=== PATIENT | male | born 1930 | race Caucasian/White ===

== ENCOUNTER 2018-01-03 08:45 | Day surgery (SDC) | payer MEDICARE, OTHER ==
[~2018-01-03] VITALS: Ht 172.7 cm; Wt 93.0 kg
[~2018-01-03 08:45] MED LIST: CEPHALEXIN500 MG PO; FUROSEMIDE40 MG PO; LEVAQUIN500 MG PO; LISINOPRIL20 MG PO; POTASSIUM CHLO10 MEQ PO; PREDNISONE10 MG PO
[2018-01-03] MEDS ORDERED: ASPIR 8181 MG PO (09:27)
[2018-01-03] MEDS ORDERED: MAPAP325 MG PO (13:31)
[2018-01-03] MEDS ORDERED: IBUPROFEN600 MG PO (13:31)
[2018-01-03] MEDS ORDERED: OXYCODON-ACETA1 EAC2 PO (13:31)
--- NOTE | 2018-01-03 13:31 | NUR ---
01/03/18 Joshua1 Micki Plata 1315 PT ARRIVED ASLEEP, RESP EVEN AND UNLABORED. 1319 O2 DECREASED TO 6L VIA MASK 1321 O2 REMOVED. PT DROWSY. REORIENTED TO PACU.
--- NOTE | 2018-01-03 15:49 | NUR ---
IN TO CHECK ON PT, PT AWAKE. DENIES PAIN AND NAUSEA. OFFERED PAIN MEDICATION BEFORE LEAVING, PT DECLINED. PT ASSISTED UP TO BATHROOM, TOLERATED WELL. VO1OYTE ON FEET. BACK TO ROOM, ADVISED PT OKAY TO D/C. PT STATES HE IS READY TO GO. IV DC'D. PT DRESSING, TOLERATING WELL. PT'S SON CALLED FOR RIDE. PT'S CALLED FOR UPDATE.
--- NOTE | 2018-01-12 14:11 | OR ---
[facility] [address] [place], [place] [address] Signed DATE OF OPERATION: 01/03/2018 SURGEON: Alexis Centeno MD PREOPERATIVE DIAGNOSIS: Right inguinal hernia. POSTOPERATIVE DIAGNOSIS: Large right direct and indirect inguinal hernia (complex). PROCEDURES: 1. Right inguinal hernia repair, prolonged complicated difficult. 2. Implantation of Prolene mesh underlay technique and excision and ligation of indirect hernia sac. ANESTHESIA: General LMA, Alexis Benites CRNA and local 30 mL of 0.25% Marcaine with epinephrine. INDICATIONS: This 87-year-old white man is well known to me from the past 15 years ago, having undergone a left inguinal hernia repair. The hernia repair is doing well. The patient is a patient of Dr. Laird. He has been found to have a right inguinal hernia. Examination shows a reducible right inguinal hernia. He is admitted at this time to undergo right inguinal hernia repair. Understand the risks of bleeding, infection, recurrent hernia, testicular injury or chronic pain, and understanding these risks wishes to proceed. FINDINGS: There was a complex hernia more so than I expected. There was a large indirect sac without sign of incarceration. Additionally, though there was marked defect in the floor itself. High ligation and excision of the sac were accomplished as well as implantation of Prolene mesh in the properitoneal space with underlay technique. By conclusion, the cord structures were preserved and good repair was afforded. The operation was prolonged, complicated, and difficult taken 3 times longer than usual. DESCRIPTION OF PROCEDURE: The patient was brought to the operating room and given a general LMA-type anesthetic. Preoperative antibiotic Ancef was given. Sequential compression device stockings used and heparin subcutaneously administered. The lower abdomen was clipped and prepared with a chlorhexidine solution and draped sterilely. A curvilinear incision was made Electronically Signed By: ALEXIS CENTENO MD 01/12/18 1411 PATIENT NAME: OLIVIA MANTILLA OPERATIVE REPORT DATE OF : 34 REPORT #: [id number] PHYSICIAN: ALEXIS CENTENO MD PCP: Salome LAIRD MD REPORT IS CONFIDENTIAL AND NOT TO BE RELEASED WITHOUT AUTHORIZATION [facility] [address] [place], [place] [address] Signed cephalad to the right pubic tubercle. Dissection carried through the subcutaneous tissue with blunt and electrocautery dissection. The external oblique was markedly attenuated due to the bulging of the hernia itself. The remnants of the external oblique laterally were incised revealing the underlying bulky-type hernia. With blunt and electrocautery dissection, the cord structures and hernia sac were dissected free. Ultimately, the cord was encircled with a Tivoli drain and examination of the floor showed to be intact medially, but laterally quite markedly attenuated and a direct component hernia was noted as well. The hernia sac was dissected free from the cord structures. It was quite large. It was ultimately freed to the neck, incised and opened and internal inspection undertaken. There was no sign of hollow, viscus or sliding component. The neck of the hernia sac was ligated with 2-0 silk suture doubly applied and the redundant hernia sac amputated and passed for pathology. An Allis clamp was applied to the tendon of the transversus abdominis and there was still bulky fat in the medial superior aspect of the cord. With further dissection, this was found to be a direct hernia surprisingly anterior and nearly lateral to the cord itself. This was distinct from the hernia sac itself. Medially, there was attenuated tissue as well consistent with direct hernia. The attenuated fibers of the fascia transversalis were incised with electrocautery and with meticulous care, blunt dissection undertaken in the properitoneal space. Ultimately, the cord structures could be from the blown out area superiorly and medially and the shelving edge of Poupart's ligament well defined and the area for implantation of mesh well defined. A segment of Prolene mesh was cut to an elliptical configuration and secured in an underlay technique with interrupted 2-0 Prolene suture. Laterally, this was to the shelving edge of Poupart's ligament extended superiorly around the origin of the cord. The defect was cut into the mesh to accommodate the cord structures and the medial aspect of the mesh was secured beneath the fascia with interrupted 2-0 Prolene as well. The tails of the graft were taken around the cord laterally. The mesh was incised further to accommodate the cord, so as to avoid too extensive tight aperture for the cord structures. Once secured laterally and the special care to avoid incorporation of the ilioinguinal nerve branch, the defect of the mesh was secured with additional Prolene to snug up the mesh in relationship to the cord. The cord structures were not encumbered or blood flow occluded. A 30 mL of 0.25% Marcaine with epinephrine was injected locally. The intact remnants of the external oblique were reapproximated over the cord structures with interrupted 2-0 Vicryl. Most of the external oblique had been so attenuated could not be reapproximated over the cord. The Robby's layer was reapproximated with interrupted 2-0 Vicryl and skin was closed with running subcuticular 3-0 Vicryl. Steri-Strips were applied as was a Mepilex silver sponge dressing and an OpSite. The patient was ultimately extubated and transferred to recovery room in good condition having suffered no complications. Sponge, needle, and instrument counts reported as correct x3. Electronically Signed By: ALEXIS CENTENO MD 01/12/18 1411 PATIENT NAME: OLIVIA MANTILLA OPERATIVE REPORT DATE OF : 32 REPORT #: [id number] PHYSICIAN: ALEXIS CENTENO MD PCP: Salome LAIRD MD REPORT IS CONFIDENTIAL AND NOT TO BE RELEASED WITHOUT AUTHORIZATION [address] [address] Signed MD SAVANAH Victoria/MODL /[id number] cc: Salome Laird MD Copies: Salome LAIRD MD ~ Electronically Signed By: ALEXIS CENTENO MD 01/12/18 1411 PATIENT NAME: OLIVIA MANTILLA OPERATIVE REPORT DATE OF : 32 REPORT #: [id number] PHYSICIAN: ALEXIS CENTENO MD PCP: Salome LAIRD MD REPORT IS CONFIDENTIAL AND NOT TO BE RELEASED WITHOUT AUTHORIZATION
== END 2018-01-03 15:55 | disposition home or self-care (01) ==
LOC: DS 08:45
PROVIDERS: Surgery
PROC: 0YU50JZ Supplement Right Inguinal Region with Synthetic Substitute, Open Approach (ICD-10-PCS; principal; 2018-01-03 10:15)
DX: K40.90 Unilateral inguinal hernia, without obstruction or gangrene, not specified as recurrent (principal); I10 Essential (primary) hypertension; L82.1 Other seborrheic keratosis; Z98.52 Vasectomy status; Z90.79 Acquired absence of other genital organ(s); Z79.82 Long term (current) use of aspirin; Z79.899 Other long term (current) drug therapy; Z85.46 Personal history of malignant neoplasm of prostate
CPT/HCPCS: 00830; 88300; C1781; J0690; J1100; J1644; J1885; J2250; J2405; J2704; J2765; J3010; J7120

== ENCOUNTER 2018-12-04 08:40 | Day surgery (SDC) | payer MEDICARE, OTHER ==
[~2018-12-04] VITALS: Ht 172.7 cm; Wt 86.2 kg
[~2018-12-04 08:40] MED LIST changes: +ASPIR 8181 MG PO; +IBUPROFEN600 MG PO; +MAPAP325 MG PO; +OXYCODON-ACETA1 EAC2 PO
[2018-12-04] MEDS ORDERED: LEXAPRO20 MG PO (09:00)
--- NOTE | 2018-12-04 09:14 | NUR ---
STATES HE USES A CANE SOMETIMES . DID NOT COME IN WITH CANE.
--- NOTE | 2018-12-04 11:12 | NUR ---
12/04/18 1112 Sheets,Micki 1100 PT ARRIVED TO PACU DROWSY AND TALKING TO RN, PT DENIES PAIN AND NAUSEA, PT EDUCATION GIVEN ON SPINAL AND MITOMYCIN IN BLADDER. PT REPORTS NUMBNESS/TINGLING IN FEET, PT ABLE TO MOVE FEET SMALL AMOUNT. SPINAL LEVEL L-5.
--- NOTE | 2018-12-04 11:33 | NUR ---
URINARY CATH CLAMPED.
[2018-12-04] MEDS ORDERED: AUGMENTIN 875-1 EACH PO (11:53)
[2018-12-04] MEDS ORDERED: NORCO 5-325 TA1 EACH PO (11:53)
--- NOTE | 2018-12-04 12:02 | NUR ---
1137 TURNED, HELPED WITH LEGS NOT MOVING THEM MUCH.
--- NOTE | 2018-12-04 12:03 | NUR ---
1157 TURNED. PT ABLE TO MOVE LEGS SAYS HE CAN FEEL FEET NOW. ON STOMACH AND IS COMFORTABLE.
--- NOTE | 2018-12-04 12:28 | NUR ---
1217 TURNED AND BLADDER EMPTIED 200MLS REDDISH FLUID PLACED IN CHEMO CONTAINER. TUBING AND BAG CONNECTED. INSTRUCTED PT HE WILL HAVE X3DAYS. CARE INSTRUCTIONS GIVEN.
--- NOTE | 2018-12-04 13:52 | NUR ---
1315 GETTING DRESSED. SON HERE TO TAKE HOME. STOOD AT BEDSIDE SPINAL RESOLVED. REVIEWED CATHETER EMPTING AND CARE WITH PT AND SON AGAIN. NO QUESTIONS.
--- NOTE | 2018-12-06 13:31 | OR ---
[facility] [address] [place], [place] [address] Signed DATE OF OPERATION: 12/04/2018 SURGEON: Irvin Talamantes MD PREOPERATIVE DIAGNOSES: 1. Gross hematuria. 2. Large bladder mass seen on imaging studies. POSTOPERATIVE DIAGNOSES: 1. Gross hematuria. 2. Large bladder mass seen on imaging studies. NAMES OF PROCEDURES: 1. Diagnostic cystoscopy. 2. Transurethral resection of bladder tumor-large. 3. Intravesical instillation of mitomycin chemotherapy. 4. Urethral dilation using Alexandru sounds. ANESTHESIA: Spinal anesthesia with sedation. ESTIMATED BLOOD LOSS: 15 mL. COMPLICATIONS: None. SPECIMENS: 1. Fragments of bladder mass sent to Pathology for evaluation. 2. Fragments of the base of bladder mass, also sent to Pathology for evaluation. DRAINS: A 22-Palauan two-way Parra catheter, capped and taped to the patient's abdomen. INDICATIONS FOR PROCEDURE: Mr. Mantilla is a very pleasant 88-year-old gentleman with no history of tobacco use or obvious environmental exposure, presented to my clinic in late 2017 with complaints of multiple bouts of painless gross hematuria. He underwent a gross hematuria evaluation, which included urinary cytology. The urinary cytology was positive for high-grade urothelial cells. He then underwent a CAT scan, which revealed the presence of a very Electronically Signed By: IRVIN TALAMANTES MD 12/06/18 1331 PATIENT NAME: OLIVIA MANTILLA OPERATIVE REPORT DATE OF : 32 REPORT #: [id number] PHYSICIAN: IRVIN TALAMANTES MD PCP: JAMIR VALDEZ MD REPORT IS CONFIDENTIAL AND NOT TO BE RELEASED WITHOUT AUTHORIZATION [facility] [address] [place], [place] [address] Signed large mass within the patient's bladder. Diagnostic cystoscopy was performed, which confirmed the presence of a large papillary mass protruding from the posterior/left lateral wall of the bladder. He presents today to undergo definitive management of his bladder mass in the form of a resection, followed by intravesical instillation of mitomycin. OPERATIVE FINDINGS: 1. On cystoscopy, there was an approximately 4-5 cm papillary bladder mass that appears to have some areas of necrosis associated with it. Overall, this appears to be a tumor that has been present within the bladder for a while, and this seems to visibly penetrate deeply into the bladder wall. Again, this large mass is located in the posterior/left lateral wall of the bladder and does not involve the left ureteral orifice. 2. This large bladder mass was resected using a bipolar electrode. Most of the visible bladder was sent in the 1st specimen labeled fragments of bladder mass. I then obtained fragments from within the base of the bladder mass and at the level of the bladder wall, which was sent as base of bladder tumor. There was minimal blood loss during the resection and bipolar cautery was used intermittently for hemostasis without difficulty. At the end of the procedure, 2nd specimen cup was filled with fragments of urothelium mixed with the detrusor muscle and the base of the tumor. The patient's bladder was again thoroughly irrigated to be sure any remaining fragments were successfully extracted from the bladder. 3. A 22-Palauan two-way Parra catheter was inserted into the patient's bladder and was used to drain the remaining fluid within the bladder. 40 mg of mitomycin in 20 mL of sterile water was instilled into the patient's bladder using a syringe. The bladder was then capped and then secured to the patient's abdomen. DESCRIPTION OF PROCEDURE: After informed consent was obtained, the patient was taken back to the operating room. He was transferred from the [facility] to the operating room table, where spinal anesthesia with sedation was induced. He was then placed in the dorsal lithotomy position and his genitalia were prepped and draped in standard sterile fashion. The patient's urethra was dilated using [place] sounds from 20-Palauan to 28-Palauan without difficulty. The 26-Palauan sheath was then inserted into the patient's bladder using a visual obturator. Once the sheath was in place, a diagnostic cystoscopy was then performed. The visualized obturator was then removed and a resectoscope was inserted into the patient's bladder. I then performed a resection of the large bladder mass as noted above. The mass was again noted to be around 4-5 cm in size. The top portion of the mass was fully resected and the fragments were irrigated out of the bladder and placed in a specimen cup. The base of the mass along with urothelium was then resected and placed in a 2nd specimen cup. All the while, adequate hemostasis was achieved and maintained with bipolar electrocautery. I then changed out the loop for the bipolar button and then Electronically Signed By: IRVIN TALAMANTES MD 12/06/18 133 PATIENT NAME: OLIVIA MANTILLA OPERATIVE REPORT DATE OF : 32 REPORT #: [id number] PHYSICIAN: IRVIN TALAMANTES MD PCP: JAMIR VALDEZ MD REPORT IS CONFIDENTIAL AND NOT TO BE RELEASED WITHOUT AUTHORIZATION [address] [address] Signed continued cauterization of the tumor bed along with the edges of the tumor bed and ultimately achieved more than adequate hemostasis. The patient's bladder was then again irrigated using a Сергей syringe to be sure there were no remaining fragments within the bladder. The resectoscope was then removed. A 22-Palauan two-way Parra catheter was inserted into the patient's bladder and the patient's bladder was then drained fully of irrigant. I then instilled 40 mg of mitomycin mixed in 20 mL into the patient's bladder via the existing catheter. The catheter was then capped and secured to the patient's abdomen. The procedure was then terminated. The patient tolerated the procedure well without any complication. He will now be transferred to the postanesthesia care unit in stable condition. DISPOSITION: The patient will be sent to the postanesthesia care unit to continue his mitomycin therapy for the next 80 minutes. The mitomycin therapy will then be drained from his bladder. Due to the shear size of the bladder tumor, I have asked that the patient be sent home with a Parra catheter to gravity drainage. He was sent home with [place] 5/325, dispensed #10 as needed for pain along with oral antibiotics for prophylaxis. He will be scheduled to return in the next few days to undergo voiding trial in the clinic with my EXTRUSION BENDER. I told the patient that I would contact him with the pathology results once they are available. This will then determine our next best course of action. MD JULIO CÉSAR Bourne/SRINATH /[id number] Copies: ~ Electronically Signed By: IRVIN TALAMANTES MD 12/06/18 1331 PATIENT NAME: OLIVIA MANTILLA OPERATIVE REPORT DATE OF : 32 REPORT #: [id number] PHYSICIAN: IRVIN TALAMANTES MD PCP: JAMIR VALDEZ MD REPORT IS CONFIDENTIAL AND NOT TO BE RELEASED WITHOUT AUTHORIZATION
== END 2018-12-04 13:20 | disposition home or self-care (01) ==
LOC: OPS 08:40 → DS 08:40 → OPS 09:25
PROVIDERS: Urology
PROC: 0TBB8ZZ Excision of Bladder, Via Natural or Artificial Opening Endoscopic (ICD-10-PCS; principal; 2018-12-04 09:25)
PROC: 3E0M705 Introduction of Other Antineoplastic into Peritoneal Cavity, Via Natural or Artificial Opening (ICD-10-PCS; 2018-12-04 09:25)
DX: C67.9 Malignant neoplasm of bladder, unspecified (principal); M19.012 Primary osteoarthritis, left shoulder; M46.96 Unspecified inflammatory spondylopathy, lumbar region; Z79.82 Long term (current) use of aspirin; Z79.899 Other long term (current) drug therapy
CPT/HCPCS: 00912; 88305; 88307; J0696; J2250; J2704; J3010; J7120; J9280

== ENCOUNTER 2019-02-12 05:30 | Day surgery (SDC) | payer MEDICARE, OTHER ==
[~2019-02-12] VITALS: Ht 172.7 cm; Wt 86.2 kg
--- NOTE | ~2019-02-12 | OR ---
[facility] [address] [place] [address] Draft DATE OF OPERATION: 02/12/2019 SURGEON: Irvin Talamantes MD PREOPERATIVE DIAGNOSIS: Superficial low-grade bladder cancer, status post recent TURBT, large. POSTOPERATIVE DIAGNOSIS: Superficial low-grade bladder cancer, status post recent TURBT, large. NAMES OF PROCEDURES: 1. Diagnostic cystoscopy. 2. Transurethral resection of bladder tumor-small. 3. Intravesical instillation of mitomycin chemotherapy. ANESTHESIA: General. ESTIMATED BLOOD LOSS: Minimal. COMPLICATIONS: None. SPECIMENS: Tissue obtained from the base of the bladder tumor was placed in a specimen cup and sent to pathology for evaluation. DRAINS: A 20-Cayman Islander two-way Parra catheter, capped and taped to the patient's abdomen. COMPLICATIONS: None. INDICATIONS FOR PROCEDURE: Mr. Mantilla is a very pleasant 89-year-old gentleman, who underwent initial TURBT large approximately 2 months ago after being evaluated for intermittent bouts of gross hematuria. At that time he was found to have a rather large lesion on the posterior lateral wall of the bladder. He underwent uneventful TURBT along with intravesical instillation of mitomycin chemotherapy. 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 He presents today to undergo his restaging TURBT per protocol. Overall, he is doing quite well and has no complaints since his initial surgery. OPERATIVE FINDINGS: On cystoscopy, there is no evidence of any new bladder lesions or masses, noted since his previous surgery. There is diffuse grade 3-4 bladder wall trabeculation, along with generalized erythema of the mucosa. I can see the area of previous resection of the large bladder tumor on the posterior lateral wall of the bladder. There is a rather large amount of necrotic tissue associated with this area. Both the necrotic tissue and the base of the previous lesion were resected thoroughly and then areas were resected down to the level of perivesical fat. I was able to obtain multiple tumor bed fragments that were placed in a specimen cup and sent to pathology for evaluation. Once a 20-Cayman Islander two-way Parra catheter was placed, 40 mg in 20 mL of mitomycin was then instilled into the patient's bladder and the catheter was capped and secured to the patient's abdomen. DESCRIPTION OF PROCEDURE: After informed consent was obtained, the patient was taken back to the operating room. He was transferred from the [facility] to the operating room table, where general anesthesia was induced. He was placed in the dorsal lithotomy position and his genitalia was prepped and draped in sterile fashion. His meatus and fossa navicularis were then dilated from 18-Cayman Islander to 30-Cayman Islander without difficulty using Summers sounds. I then inserted a standard cystoscope using a 22-1/2-Cayman Islander sheath and a 70-degree lens. A thorough diagnostic cystoscopy was then performed. Please see above findings. I then removed the scope and inserted a 26-Cayman Islander sheath using the visual obturator. I removed the obturator and then inserted the resectoscope with a 24-Cayman Islander loop and began resection of the necrotic tumor bed. Fragments of necrotic tissue were removed, along with the base of the previous bladder tumor. I was able to resect obvious areas of detrusor muscle, down to the perivesical fat in some areas. Overall, the resection was performed without difficulty. I then cauterized the tumor bed using a 24-Cayman Islander loop to obtain adequate hemostasis. Once all the tumor bed had been completely resected and was cauterized properly, the patient's bladder was then flushed using a Сергей syringe and the tumor base fragments were then collected from the patient's bladder via the Сергей syringe. I reinserted the resectoscope to be sure there were no remaining bleeders in the area of the resection. Once I was satisfied that hemostasis had been achieved, the resectoscope was removed and I inserted a 20-Cayman Islander two-way Parra catheter and flushed PATIENT NAME: OLIVIA MANTILLA OPERATIVE REPORT DATE OF : 34 REPORT #: [id number] PHYSICIAN: IRVIN TALAMANTES MD PCP: JAMIR VALDEZ MD REPORT IS CONFIDENTIAL AND NOT TO BE RELEASED WITHOUT AUTHORIZATION [facility] [address] [place] [address] Draft the patient's bladder again a couple of times to be sure there were no remaining tumor specimens. Using a catheter tip syringe. I then instilled 40 mg in 20 mL of mitomycin chemotherapy into the patient's bladder using the indwelling Parra catheter. The catheter was then capped and then taped to the patient's abdomen. The procedure was then terminated. The patient tolerated the procedure well without any complication. He will now be transferred to the postanesthesia care unit in stable condition. DISPOSITION: Once the patient awakes from his general anesthesia he will be sent home later today in the care of his family. The patient's Parra catheter will be removed after he undergoes a total of 80 minutes of intravesical mitomycin chemotherapy. I have asked nursing staff to be sure the patient is able to void on his own before discharge. If he is unable to void after 68 hours he will be bladder scanned and a Parra catheter will be reinserted if his PVR is greater than 200 mL. The patient will be scheduled to return to clinic in approximately 4-5 weeks to discuss his pathology results after undergoing restaging TURBT. He will be sent home today with [place] 5/325 dispense #15 as needed for pain along with Keflex 500 mg p.o. b.i.d. for a total of 7 days. MD JULIO CÉSAR Bourne/SRINATH /[id number] Copies: ~ PATIENT NAME: OLIVIA MANTILLA OPERATIVE REPORT DATE OF : 34 REPORT #: [id number] PHYSICIAN: IRVIN TALAMANTES MD PCP: JAMIR VALDEZ MD REPORT IS CONFIDENTIAL AND NOT TO BE RELEASED WITHOUT AUTHORIZATION
[~2019-02-12 05:30] MED LIST changes: +AUGMENTIN 875-1 EACH PO; +LEXAPRO20 MG PO; +NORCO 5-325 TA1 EACH PO
--- NOTE | 2019-02-12 08:45 | NUR ---
02/12/19 0845 Veronica Shrestha 0868 PT ARRIVED IN PACU SLEEPY WITH NO C/O'S. CATHETER CLAMPED FROM OR. POSITIONED ON BACK. 0835 OXYGEN REMOVED. SATS 96% ON RA. 0840 REPOSITIONED TO R SIDE PER DR PHILLIPS.
--- NOTE | 2019-02-12 10:31 | NUR ---
LE 0910 PT ARRIVED FROM PACU, AWAKE AND TALKING WITH STAFF. PT DENIES PAIN AND NAUSEA. PT LYING ON L SIDE. WATER GIVEN. WILL ROTATE PT AT 0920. LE 0920 PT ROLLED TO STOMACH. REPOSITIONED FOR COMFORT. NO FURTHER NEEDS AT THIS TIME. LE 0940 SOOD CATH WITH MITOMYCIN REMOVED. 100 MLS OF CORTEZ TINGED URINE REMOVED. PT TOLERATED WELL. DENIES PAIN AND NAUSEA. COFFEE GIVEN TO TOLERATED WELL. SCRAMBLED EGGS ORDERED AND GIVEN TO PT. WILL CONTINUE TO MONITOR.
--- NOTE | 2019-02-12 11:36 | NUR ---
IN TO CHECK ON PT, PT DOING WELL. DENIES PAIN AND NAUSEA AT THIS TIME. DISCUSSED AMBULATING TO RESTROOM WHEN READY. VITALS STABLE. WILL CONTINUE TO MONITOR PT.
--- NOTE | 2019-02-12 12:20 | NUR ---
LE 1145 PT ASSISTED UP TO BATHROOM. AMBULATED WELL WITH ASSIST FROM CANE. PT ABLE TO VOID 150 MLS. PT STATES HE IS READY TO GO HOME. IV DC'D. PT DRESSED WITHOUT ASSIST. DISCHARGE INSTRUCTIONS AND RX GIVEN. PT DAUGHTER RADHA HERE TO TAKE PT HOME. PT WHEELED OUT TO WAITING CAR.
== END 2019-02-12 12:15 | disposition home or self-care (01) ==
LOC: DS 05:30 → OPS 05:30 → DS 06:45 → OPS 06:45
PROVIDERS: Urology
PROC: 0TBB8ZZ Excision of Bladder, Via Natural or Artificial Opening Endoscopic (ICD-10-PCS; principal; 2019-02-12 06:45)
DX: C67.8 Malignant neoplasm of overlapping sites of bladder (principal); N32.89 Other specified disorders of bladder; N30.91 Cystitis, unspecified with hematuria; I12.9 Hypertensive chronic kidney disease with stage 1 through stage 4 chronic kidney disease, or unspecified chronic kidney disease; E78.2 Mixed hyperlipidemia; N18.3 Chronic kidney disease, stage 3 (moderate); N28.9 Disorder of kidney and ureter, unspecified; Z79.899 Other long term (current) drug therapy
CPT/HCPCS: 00912; 88305; 88341; 88342; J0696; J2405; J3010; J7120

== ENCOUNTER 2020-02-10 15:13 | Emergency (ER) | payer MEDICARE, OTHER ==
[~2020-02-10] VITALS: Ht 172.7 cm; Wt 83.9 kg
--- NOTE | 2020-02-11 07:15 | EKG ---
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
--- NOTE | 2020-02-11 07:15 | EKG ---
[facility] [address] [place] [address] Signed Sinus tachycardia with 1st degree AV block Otherwise normal ECG When compared with ECG of 29-NOV-2018 15:19, Vent. rate has increased BY 64 BPM Confirmed by KIZZY SWAIN MD ([id number]) on 02/11/2020 7:14:51 AM Electronically Signed By: KIZZY SWAIN MD 02/11/20 0715 PATIENT NAME: JOSE RAFAELOLIVIA Electrocardiogram DATE OF : 34 PHYSICIAN: KIZZY SWAIN MD REPORT #: [id number] REPORT IS CONFIDENTIAL AND NOT TO BE RELEASED WITHOUT AUTHORIZATION
== END 2020-02-10 20:50 | disposition short-term general hospital (02) ==
LOC: ED 15:13
DX: I26.99 Other pulmonary embolism without acute cor pulmonale (principal); I10 Essential (primary) hypertension; Z79.899 Other long term (current) drug therapy
CPT/HCPCS: 70450; 71045; 71260; 80053; 83880; 84484; 85025; 85379; 85610; 85730; 87502; 93005; 93010; 96361; 99285-25; J1644; J7121; Q9967

== ENCOUNTER 2020-04-01 14:13 | Inpatient (IN) | payer MEDICARE, OTHER ==
[~2020-04-01] VITALS: Ht 172.7 cm; Wt 90.3 kg
--- OUTSIDE RECORDS SUMMARY | ~2020-04-01 | XMS | Encounter Summary ---
Demographics + + + | Address | [address] | | | [place] [address] | + + + | Home Phone | | + + + | Preferred Language | Unknown | + + + | Marital Status | | + + + | Hindu Affiliation | Unknown | + + + | Race | Unknown | + + + | Ethnic Group | Unknown | + + + Author + + + | Author | [facility] | | | and [place] | + + + | Organization | [facility] | | | and [place] | + + + | Address | Unknown | + + + | Phone | Unavailable | + + + Support + + +---------+ + | Name | Relationship | Address | Phone | + + +---------+ + | Breanne Walsh | ECON | Unknown | | + + +---------+ + Care Team Providers + +------+ + | Care Live In Companion Name | Role | Phone | + +------+ + | Antonio Nolasco MD | PCP | | + +------+ + Encounter Details +--------+ + + + + | Date | Type | Department | Care Team | Description | +--------+ + + + + | 02/24/ | Telephone | [facility] | Imani Nevarez, | | | 2019 | | CENTER | ANIMAL CHIROPRACTOR | | | | | ANTICOAGULATION | | | | | | [facility] [place] | | | | | | [address] | | | | | | [place], [place] | | | | | | [address] | | | | | | [phone] | | | +--------+ + + + + Social History + +-------+ +--------+------+ | Tobacco Use | Types | Packs/Day | Years | Date | | | | | Used | | + +-------+ +--------+------+ | Never Smoker | | | | | + +-------+ +--------+------+ + +---+---+---+ | Smokeless Tobacco: | | | | | Never Used | | | | + +---+---+---+ + + +---------+ + | Alcohol Use | Drinks/Week | oz/Week | Comments | + + +---------+ + | Yes | | | 1 shot a day | + + +---------+ + + + + | Sex Assigned at | Date Recorded | | | | + + + | Not on file | | + + + + + + + | Job Start Date | Occupation | Industry | + + + + | Not on file | Not on file | Not on file | + + + + + + + + | Travel History | Travel Start | Travel End | + + + + + + | No recent travel history available. | + + documented as of this encounter Plan of Treatment +--------+---------+ + + + | Date | Type | Specialty | Care Team | Description | +--------+---------+ + + + | 07/03/ | Office | Cardiology | Giselle Garcia DO | | | 2019 | Visit | | [address] | | | | | | [place] | | | | | | [address] | | | | | | | | +--------+---------+ + + + documented as of this encounter Visit Diagnoses Not on filedocumented in this encounter"
--- OUTSIDE RECORDS SUMMARY | ~2020-04-01 | XMS | Encounter Summary ---
Demographics + + + | Address | [address] | | | [place] [address] | + + + | Home Phone | | + + + | Preferred Language | Unknown | + + + | Marital Status | | + + + | Methodist Affiliation | Unknown | + + + | Race | Unknown | + + + | Ethnic Group | Unknown | + + + Author + + + | Author | [facility] | | | and [place] | + + + | Organization | [facility] | | | [...] Team Providers + +------+ + | Care Fry Cook Name | Role | Phone | + +------+ + | Antonio Nolasco MD | PCP | | + +------+ + Encounter Details +--------+ + + + + | Date | Type | Department | Care Team | Description | +--------+ + + + + | 02/24/ | Telephone | [facility] | Imani Nevarez, | | | 2019 | | CENTER | AUDIO VIDEO TECHNICIAN | | | | | ANTICOAGULATION | | | | | | [facility] [place] | | | | | | [address] | | | | | | [place], [place] | | | | | | [address] | | | | | | [phone] | | | +--------+ + + + [...] | | | | | [place] | | | | | | [address] | | | | | | | | +--------+---------+ + + + documented as of this encounter Visit Diagnoses Not on filedocumented in this encounter"
--- OUTSIDE RECORDS SUMMARY | ~2020-04-01 | XMS | Encounter Summary ---
Demographics + + + | Address | [address] | | | [place] [address] | + + + | Home Phone | | + + + | Preferred Language | Unknown | + + + | Marital Status | | + + + | Latter-Day Affiliation | Unknown | + + + | Race | Unknown | + + + | Ethnic Group | Unknown | + + + Author + + + | Author | [facility] | | | and [place] | + + + | Organization | [facility] | | | [...] Team Providers + +------+ + | Care Poultry Husbandry Teacher Name | Role | Phone | + +------+ + PCP | Unavailable | + +------+ + Encounter Details +--------+ + + + + | Date | Type | Department | Care Team | Description | +--------+ + + + + | 10/27/ | [facility] | [facility] | Kevin Campos MD | | | 2000 | Encounter | [facility] | [address] | | | | | [address] | [place] | | | | | [place] | [address] | | | | | [address] | [phone] | | | | | [phone] | | | +--------+ + + + [...] | Giselle Garcia DO | | | 2020 | Visit | | [address] | | | | | | [place] | | | | | | [address] | | | | | | | | +--------+---------+ + + + documented as of this encounter Visit Diagnoses Not on filedocumented in this encounter"
--- OUTSIDE RECORDS SUMMARY | ~2020-04-01 | XMS | Encounter Summary ---
Demographics + + + | Address | [address] | | | [place] [address] | + + + | Home Phone | | + + + | Preferred Language | Unknown | + + + | Marital Status | | + + + | Worship Affiliation | Unknown | + + + | Race | Unknown | + + + | Ethnic Group | Unknown | + + + Author + + + | Author | [facility] | | | and [place] | + + + | Organization | [facility] | | | and [place] | + [...] Team Providers + +------+ + | Care Multi Purpose Machine Operator Name | Role | Phone | + +------+ + PCP | Unavailable | + +------+ + Encounter Details +--------+ + + + + | Date | Type | Department | Care Team | Description | +--------+ + + + + | 10/27/ | [facility] | [facility] | Kevin Campos MD | | | 2000 | Encounter | MED CTR [facility] | [address] | | | | | [address] | [place] | | | | | [place] | [address] | | | | | [address] | [phone] | | | | | [phone] | | | +--------+ + + + [...] [place] | | | | | | [address] | | | | | | | | +--------+---------+ + + + documented as of this encounter Visit Diagnoses Not on filedocumented in this encounter"
--- OUTSIDE RECORDS SUMMARY | ~2020-04-01 | XMS | Encounter Summary ---
Demographics + + + | Address | [address] | | | [place] [address] | + + + | Home Phone | | + + + | Preferred Language | Unknown | + + + | Marital Status | | + + + | Anabaptism Affiliation | Unknown | + + + | Race | Unknown | + + + | Ethnic Group | Unknown | + + + Author + + + | Author | [facility] | | | and [place] | + + + | Organization | [facility] | | [...] Team Providers + +------+ + | Care Purchasing Analyst Name | Role | Phone | + +------+ + PCP | Unavailable | + +------+ + Encounter Details +--------+ + + + + | Date | Type | Department | Care Team | Description | +--------+ + + + + | 10/27/ | [facility] | [facility] | Kevin Campos MD | | | 2000 | Encounter | MED CTR [facility] INTRA [facility] | [address] | | | | | [address] | [place] | | | | | [place] | [address] | | | | | [address] | [phone] | | | | | [phone] | | | +--------+ + + + [...] [place] | | | | | | [address] | | | | | | | | +--------+---------+ + + + documented as of this encounter Visit Diagnoses Not on filedocumented in this encounter"
--- OUTSIDE RECORDS SUMMARY | ~2020-04-01 | XMS | Encounter Summary ---
Demographics + + + | Address | [address] | | | [place] [address] | + + + | Home Phone | | + + + | Preferred Language | Unknown | + + + | Marital Status | | + + + | Voodoo Affiliation | Unknown | + + + | Race | Unknown | + + + | Ethnic Group | Unknown | + + + Author + + + | Author | [facility] | | | and [place] | + + + | Organization | [facility] | | | [...] Team Providers + +------+ + | Care Leather Repairer Name | Role | Phone | + +------+ + | Antonio Nolasco MD | PCP | | + +------+ + Encounter Details +--------+--------+ + + + | Date | Type | Department | Care Team | Description | +--------+--------+ + + + | 02/09/ | Intake | [facility] | | N/A | | 2019 | | [place] [address] | | | | | | [place] | | | | | | [place], [place] | | | | | | [address] | | | | | | [phone] | | | +--------+--------+ + + + Social History + +-------+ [...] [place] | | | | | | [address] | | | | | | | | +--------+---------+ + + + documented as of this encounter Visit Diagnoses Not on filedocumented in this encounter"
--- OUTSIDE RECORDS SUMMARY | ~2020-04-01 | XMS | Encounter Summary ---
Demographics + + + | Address | [address] | | | [place] [address] | + + + | Home Phone | | + + + | Preferred Language | Unknown | + + + | Marital Status | | + + + | Caodaism Affiliation | Unknown | + + + | Race | Unknown | + + + | Ethnic Group | Unknown | + + + Author + + + | Author | [facility] | | | and [place] | + + + | Organization | [facility] | | [...] Team Providers + +------+ + | Care Mental Health Tech Name | Role | Phone | + +------+ + | Antonio Nolasco MD | PCP | | + +------+ + Encounter Details +--------+ + + + + | Date | Type | Department | Care Team | Description | +--------+ + + + + | 02/13/ | Telephone | [facility] | Jigna Metcalf RN | | | 2020 | | CENTER | | | | | | [facility] | | | | | | [facility] | | | | | | [address] | | | | | | [place] | | | | | | [address] | | | | | | [phone] | | | +--------+ + + + [...] [place] | | | | | | [address] | | | | | | | | +--------+---------+ + + + documented as of this encounter Visit Diagnoses Not on filedocumented in this encounter"
--- OUTSIDE RECORDS SUMMARY | ~2020-04-01 | XMS | Encounter Summary ---
Demographics + + + | Address | [address] | | | [place] [address] | + + + | Home Phone | | + + + | Preferred Language | Unknown | + + + | Marital Status | | + + + | Latter Day Affiliation | Unknown | + + + | Race | Unknown | + + + | Ethnic Group | Unknown | + + + Author + + + | Author | [facility] | | | and [place] | + + + | Organization | [facility] | | | [...] Team Providers + +------+ + | Care Laborer Pole Crew Name | Role | Phone | + +------+ + | Antonio Nolasco MD | PCP | | + +------+ + Reason for Referral Evaluate & Treat (Routine) +--------+ + + + + + | Status | Reason | Specialty | Diagnoses / | Referred By | Referred To | | | | | Procedures | Contact | Contact | +--------+ + + + + + | Closed | Specialty | Anticoagulati | Diagnoses | Karolina | Alicia | | | Services | on | Acute | MD Elizabeth | Anticoagulati | | | Required | | pulmonary | [address] | on Clinic | | | | | embolism, | [address] | [place] | | | | | unspecified | [place], [place] | [address] | | | | | pulmonary | [address] | [place], | | | | | embolism | Phone: | [place] [address] | | | | | type, | [phone] | Phone: | | | | | unspecified | Fax: | [phone] | | | | | whether | [phone] | Fax: | | | | | acute cor | | [phone] | | | | | pulmonale | | | | | | | present | | | | | | | ([facility]) | | | +--------+ + + + + + Reason for Visit + + + | Reason | Comments | + + + | Cough | | + + + | Weakness | | + + + Encounter Details +--------+ + + + + | Date | Type | Department | Care Team | Description | +--------+ + + + + | 02/09/ | Hospital | [facility] | Solomon Santos DO | Acute pulmonary | | 2020 - | Encounter | [facility] | [address] | embolism, | | | | [address] | [place], [place] | unspecified | | 02/11/ | | [place], [place] | [address] | pulmonary embolism | | 2019 | | [address] | [phone] | type, unspecified | | | | [phone] | | whether acute cor | | | | | Epi Martinez | pulmonale present | | | | | MD [address] | ([facility]) (Primary Dx); | | | | | [address] | Syncope, unspecified | | | | | [place] [address] | syncope type | | | | | [phone] | | | | | | | | | | | | Eder Álvarez | | | | | | Archie Miller MD [address] | | | | | | [address] | | | | | | [place] [address] | | | | | | [phone] | | | | | | | | | | | | Elizabeth Turcios MD | | | | | | [address] | | | | | | [place] [address] | | | | | | [phone] | | | | | | | | +--------+ + [...] + + + | Blood Pressure | 112/56 | 02/12/2020 11:42 AM | | | | | PDT | | + + + + + | Pulse | 76 | 02/12/2020 11:42 AM | | | [...] + + + | Oxygen Saturation | 96% | 02/12/2020 11:42 AM | | | | | PDT | | + + + + + | Inhaled Oxygen | - | - | | | Concentration | | | | + + + + + | Weight | 82.1 kg (181 lb) | 02/12/2020 4:00 AM | | | | | PDT | | + + + + + | Height | 172.7 cm (5' 8") | 02/10/2020 10:06 PM | | | | | PDT | | + + + + + | Body Mass Index | 27.52 | 02/10/2020 10:06 PM | | | | | PDT | | + + + + + documented in this encounter Discharge Summaries Elizabeth Turcios MD - 02/12/2020 12:01 PM PDTFormatting of this note might be different fro m the original. Service: Hospitalist Discharge Summary Date of Admission: 02/10/2020 Date of Discharge: 02/12/2020 Discharge Provider: Elizabeth Turcios MD Discharge Diagnoses: Principal Problem: Acute saddle pulmonary embolism with acute cor pulmonale Active Problems: Essential hypertension Acute respiratory failure with hypoxia Syncope Bladder cancer Resolved Problems: * No resolved hospital problems. * Significant Diagnostic Studies: IR guided thrombectomy of saddle PE showed the following: IMPRESSION: Successful pulmonary artery lysis catheter placement. The catheters will be connected to tPA 0.5 mg/hr per side for 6 hours. If the Fibrinogen level falls by greater than 1/2 baseline or to less than 150, decrease dose by half. If there is any sign of bleeding or fibrinogen <100 discontinue tPA. Catheters will be removed by a member of the interventional radiolgy team in the morning of 02/11/2020. HOSPITAL COURSE: This is a 89-year-old male with significant past medical history of bladder procedure status post resection with chemotherapy, hypertension was brought in from [facility] where he presented with increasing fatigue, dizziness and shortness of breath. Patie nt also had a syncopal episode at home. Initial workup showed a CT scan of the chest with e xtensive cerebral PE with right ventricular enlargement. Patient was going to be transferre d over to our ER and had a IR guided thrombectomy. Vitals stabilized. He was not requiring oxygen supplementation. Will be discharged home on anticoagulation. He will be started on subcu therapeutic Lovenox with close follow-up with [facility] anticoagulation monitoring. Vital Signs: BP 112/56 | Pulse 76 | Temp 36.3 C (97.4 F) (Axillary) | Resp 16 | Ht 1.727 m (5' 8 ") | Wt 82.1 kg (181 lb) | SpO2 96% | BMI 27.52 kg/m Patient is awake, alert, oriented to time, place and person Skin: Warm and supple Neck: No JVD Chest: Normal vesicular breath sounds, good air entry bilaterally CVS: S1S2 audible, no murmurs heard Abdomen: Soft, non tender, normal bowel sounds, no organomegaly Extremities: No pedal edema, clubbing or cyanosis Neurologic examination: No focal sensory or motor deficits Back examination: No CVA tenderness, no spinal tenderness Disposition: home Condition: Fair Discharge Procedure Orders Ambulatory Referral to [facility] Anticoagulation Monitoring Referral Priority: Routine Referral Type: Evaluate & Treat Referral Reason: Specialty Services Required Requested Specialty: Anticoagulation Number of Visits Requested: 1 Follow up: No follow-ups on file. Discharge took 35 minutes, to include final examination, discussion of admission, and prepa ration of prescriptions, instructions for on-going care, follow-up and documentation of disc harge summary. Discharge Medications New Medications Details enoxaparin 80 mg/0.8 mL injection Inject 0.8 mLs under the skin every 12 hours for 5 days. aka: LOVENOX Discontinued Medications furosemide 40 mg tablet aka: LASIX lisinopril 40 MG tablet aka: PRINIVIL,ZESTRIL POTASSIUM CHLORIDE PO documented in this en counter Discharge Instructions Instructions Azucena Ratliff RN - 02/12/2020Formatting of this note might be diff erent from the original. Pulmonary Embolism (PE) A pulmonary embolus is most often due to a blood clot that develops in a deep vein of the l eg (deep vein thrombosis). If that clot, breaks loose and travels to the lung, it is called a pulmonary embolism (PE). This can cut off theflow of blood in the lungs. A blood clot in the lungs is a medical emergency and may cause . Healthcare providers use the termvenous thromboembolism (VTE)to describe these 2 condit ions: deep vein thrombosis andpulmonary embolism.They use the term VTE because the 2 con ditions are very closely related. And, because their prevention and treatment are also close ly related. A pulmonary embolism occurs when a blood clot forms in a vein and travels to the lungs. How is pulmonary embolism diagnosed? Your healthcare provider examines you and asks about yoursymptoms and health history. You may also have one or more of the following: Blood teststo check for blood clotting or other problems Imaging teststolook for clots in the veins or lung Electrocardiography (ECG)to test how well the heart is working How is pulmonary embolism treated? Blood-thinning medicines (anticoagulants).These medicines thin the blood. They may be given as a pill,as an injection, or through a tube into a vein(intravenous orIV). Bloo d thinners help prevent more blood clots from forming. They also help toprevent an existin g clot from getting larger. Thrombolysis.Thrombolytic medicines areused to quickly dissolve a blood clot. A long , narrow tube (catheter) is used to deliver medicine directly to the clot.Thrombolytic med icines increase the risk of bleeding so they are used very carefully. Inferior vena cava (IVC) filter surgery.The vena cava is the body s largest vein. It carries blood from the body to the heart. A small filter traps blood clots in the lower bod y and prevents them from traveling to the lungs. The filter is inserted into the vein throug h a catheter. The filter may be used ifblood thinners cannot be taken or if they don't wor k. Pulmonary embolectomy.This is a procedure to remove a blood clot in the lungs. It may be done with surgery or with a catheter inserted in the body. It may be done when other angelita tments aren't safe or don't work. What are the long-term concerns? With treatment, blood clots are usually dissolved or removed. Some treatments can even help prevent future clots. Buthaving a PE can put you at risk for another life-threatening blo od clot. So, you will likely need to take anticoagulants to help keep blood clots from formi ng again. You may need to take this medicine for months or years. You may also need to make lifestyle changes. This may include getting more active and eatin g healthier.You mayneed to wear elastic (compression) stockings andand take breaks on long trips. Call 911 Call 911 or get emergency help if you have symptoms of a blood clot that has traveled to special care hospital. The symptoms include: Chest pain Trouble breathing Coughing (may cough up blood) Fainting Fast heartbeat Sweating Call 911 if you have heavy or uncontrolled bleeding. When to call your healthcare provider Call your healthcare provider if you have swelling or pain in your leg, arm, or other area. These are symptoms of a blood clot. You may have bleeding if you take medicine to help prevent blood clots. Call your healthcare provider if you have signs or symptoms of bleeding. This includes: Blood in the urine Bleeding with bowel movements Bleeding from the nose, gums, a cut, or vagina Date Last Reviewed: 12/08/201619995442-6898 [employer]. [address] [place] [address]. All righ ts reserved. This information is not intended as a substitute for professional medical care. Always follow your healthcare professional's instructions. Enoxaparin injection Brand Name: Lovenox What is this medicine? ENOXAPARIN (ee nox a PA rin) is used after knee, hip, or abdominal surgeries to prevent blo od clotting. It is also used to treat existing blood clots in the lungs or in the veins. How should I use this medicine? This medicine is for injection under the skin. It is usually given by a health-care profess ional. You or a family member may be trained on how to give the injections. If you are to gi ve yourself injections, make sure you understand how to use the syringe, measure the dose if necessary, and give the injection. To avoid bruising, do not rub the site where this medici ne has been injected. Do not take your medicine more often than directed. Do not stop taking except on the advice of your doctor or health rn primary care. Make sure you receive a puncture-resistant container to dispose of the needles and syringes once you have finished with them. Do not reuse these items. Return the container to your do ctor or health rn primary care for proper disposal. Talk to your pole river regarding the use of this medicine in children. Special care may be needed. What side effects may I notice from receiving this medicine? Side effects that you should report to your doctor or health rn primary care as soon as p ossible: allergic reactions like skin rash, itching or hives, swelling of the face, lips, or tong ue feeling faint or lightheaded, falls signs and symptoms of bleeding such as bloody or black, tarry stools; red or dark-brown urine; spitting up blood or brown material that looks like coffee grounds; red spots on the skin; unusual bruising or bleeding from the eye, gums, or nose Side effects that usually do not require medical attention (report to your doctor or health rn primary care if they continue or are bothersome): pain, redness, or irritation at site where injected What may interact with this medicine? aspirin and aspirin-like medicines certain medicines that treat or prevent blood clots dipyridamole NSAIDs, medicines for pain and inflammation, like ibuprofen or naproxen What if I miss a dose? If you miss a dose, take it as soon as you can. If it is almost time for your next dose, ta ke only that dose. Do not take double or extra doses. Where should I keep my medicine? Keep out of the reach of children. Store at room temperature between 15 and 30 degrees C (59 and 86 degrees F). Do not freeze. If your injections have been specially prepared, you may need to store them in the refriger ator. Ask your pharmacist. Throw away any unused medicine after the expiration date. What should I tell my health care provider before I take this medicine? They need to know if you have any of these conditions: bleeding disorders, hemorrhage, or hemophilia infection of the heart or heart valves kidney or liver disease previous stroke prosthetic heart valve recent surgery or delivery of a baby ulcer in the stomach or intestine, diverticulitis, or other bowel disease an unusual or allergic reaction to enoxaparin, heparin, pork or pork products, other med icines, foods, dyes, or preservatives or trying to get breast-feeding What should I watch for while using this medicine? Visit your doctor or health rn primary care for regular checks on your progress. Your con dition will be monitored carefully while you are receiving this medicine. Notify your doctor or health rn primary care and seek emergency treatment if you develop breathing problems; changes in vision; chest pain; severe, sudden headache; pain, swelling, warmth in the leg; trouble speaking; sudden numbness or weakness of the face, arm, or leg. T hese can be signs that your condition has gotten worse. If you are going to have surgery, tell your doctor or health rn primary care that you are taking this medicine. Do not stop taking this medicine without first talking to your doctor. Be sure to refill yo ur prescription before you run out of medicine. Avoid sports and activities that might cause injury while you are using this medicine. Nesha re falls or injuries can cause unseen bleeding. Be careful when using sharp tools or knives. Consider using an electric razor. Take special care brushing or flossing your teeth. Report any injuries, bruising, or red spots on the skin to your doctor or health rn primary care . NOTE:This sheet is a summary. It may not cover all possible information. If you have questi ons about this medicine, talk to your doctor, pharmacist, or health care provider. Copyright 2019 [employer] What to Know When Taking Warfarin Warfarin is a medicine that controls how your blood clots. It is used to help prevent blood clots that may cause serious health problems. These problems include heart attack (myocardi al infarction), stroke, a blockage in an artery or vein (thrombus), or a blood clot that tra vels to the lungs (pulmonary embolism). Before you start taking this medicine, tell your healthcare provider if you have any of the se conditions: Stomach ulcer now or in the past Vomited blood or had bloody stools (black or red color) Aneurysm, pericarditis, or pericardial effusion Blood disorder Recent surgery, stroke, mini-stroke, or spinal puncture Kidney or liver disease, uncontrolled high blood pressure, diabetes, vasculitis, heart f ailure, lupus or other collagen-vascular disease, or high cholesterol You are or You are younger than 18 years old Recent or planned dental procedure Although warfarin reduces the risk for blood clots, it increases your risk of bleeding. Bec ause of this, you must take the medicine exactly as you are told by your healthcare provider . You will have blood tests often to check the level of warfarin in your blood. It is importa nt to have just the right amount to balance preventing blood clots and causing excessive ble eding. If the level is too low, you are at risk for developing a blood clot. If it's too hig h, you are at risk for bleeding. Make sure you keepall scheduled appointments for blood te sting. If you don t, you will be at risk for bleeding problems. You also need to protect y ourself from injury that may cause bleeding such as a fall or hitting your head. Follow these tips Take this medicine at the same time each day. Take it with a full glass of water, with o r without food. Make sure you know what to do if you miss a dose. If you are not sure what to do, call y our healthcare provider or pharmacist. Don't take more warfarin than you were told to. Tell all of your providersincluding your dentist that you take warfarin. If you will b e taking warfarin for quite a while, carry an ID card or get a Medic-Alert bracelet. This wi ll alert medical staff in case you aren t able to do so yourself. Also carry with you the name and number of the person to contact in case of an emergency. Keep your appointments for regular blood tests to measure the effects of warfarin. Your healthcare provider may need to change your dose based on the results of your blood test. Fo llow your provider s advice exactly about how to take this medicine. Don't stop taking the medicine without talking with your provider. Monitoring your PT/INR blood levels You will need to have a blood test called a PT/INR regularly. PT stands for pro thrombin. I NR stands for international normalized ratio. The PT/INR blood test is done to make sure you are getting the right dose of this medicine. The PT/INR test tells your healthcare provider how your blood is clotting. Prothrombin time, commonly referred to as pro time or PT, measu res the time it takes for blood to clot. International normalized ratio or INR is a way to c ompare results of the PT tests done at different labs. Go for your blood (PT/INR) tests as often as directed. Note that diet and medicines can affect your PT/INR level. Your next PT/INR blood draw is due on (date) at (time ) by (name of healthcare provider or clinic). The name of the healthcare provider who is monitoring your anticoagulation therapy is __ and the phone number is . Follow up with your healthcare provider or as advised by his or her staff. It usually ta kes a few hours for your doctor to get the results of your clotting tests. Call to get your lab results and find out if your provider needs to make further changes to your warfarin dos e. If your labs (PT/INR) are drawn at a location other than your provider's office, yessica ricci to tell your provider as soon as you get your lab results. What to do at home 1. Adjust your warfarin dose as directed by your healthcare provider, (name of healthcare provider). 2. Have your blood clotting test done every days at (name of clinic) by (name of healthcare provider). 3. Prevent injuries and bleeding: ? Don't go barefoot. Always wear shoes. ? Don't trim corns or calluses yourself. ? Use an electric razor to shave instead of a manual one. ? Use a soft-bristled toothbrush and waxed dental floss. 4. Some medicines can affect your blood clotting. Always talk with your healthcare provider before stopping, starting, or changing any prescription or huum-onu-bbmaqhx (OTC) medicines . This includes herbal medicines and vitamins. Talk with your healthcare provider about the following medicines: ? Some antibiotics. This is critical because some common antibiotics can cause severe bleed ing if you take them along with warfarin. These antibiotics include ciprofloxacin and trimet hoprim-sulfamethoxazole. ? Some heart medicines ? Cimetidine ? Aspirin or other anti-inflammatory medicines, such as ibuprofen, naproxen, ketoprofen, or other arthritis medicines ? Some medicines for depression, cancer, HIV (protease inhibitors), diabetes, seizures, gou t, high cholesterol, or thyroid replacement ? Vitamins containing Vitamin K ? Herbal products such as ginkgo, Q10, garlic, or Brea's wort 5. Don't make major changes in your diet. Consuming high amounts of foods containing vitami n K can reduce the effectiveness of your warfarin. Keep your diet steady Keep your diet pretty much the same each day. That s because many foods contain vitamin K . Vitamin K helps your blood clot. So eating overly high amounts of foods that contain vitam in K can affect the way warfarin works. You don t need to stay away from foods that have v itamin K. But keep the amount of them you eat steady (about the same day to day). If you pretty nge your diet for any reason, such as for illness or to lose weight, tell your healthcare pr ovider. Foods that have vitamin K include asparagus, avocado, broccoli, cabbage, kale, spinach, and some other leafy green vegetables. Oils such as soybean, canola, and olive oils also con tain vitamin K. Other food products can affect the way warfarin works in your body: ? Food products that may affect blood clotting include cranberries and cranberry juice, fis h oil supplements, garlic, radha, licorice, and turmeric. ? Herbs used in herbal teas or supplements can also affect blood clotting. Keep the amount of herbal teas and supplements you use steady. ? Alcohol can increase the effect of warfarin in your body. Talk with your healthcare provider if you have concerns about these or other food products and their effects on warfarin. When to call your healthcare provider Warfarin increases your risk of bleeding. Call your healthcare provider right away before y ou take your next dose of warfarin if you have any of these problems: Bleeding that doesn t stop in10 minutes. This might be from a bloody nose or a cut, for example. A ommnscb-adrv-hdjydm period or bleeding between periods Coughing or throwing up blood or something that looks like coffee grounds Nausea, bloating,or diarrhea Bleeding hemorrhoids Dark red or brown urine Red or black tarry stools Red or fxrqv-xnf-ntjr mane on the skin that get larger A fever or an illness that gets worse Dizziness, headache, weakness, or fatigue Chest pain or trouble breathing A serious fall or a blow to the head Swelling or pain after an injury or at an injection site Bleeding gums after brushing your teeth What to watch for If you have any of the following allergic reactions, call your doctor right away or go to [facility]. Rash Itching Swelling Trouble swallowing or breathing [NOTE: This information topic may not include all directions, precautions, medical conditio ns, medicine/food interactions, and warnings for this medicine. Check with your doctor, nurs e, or pharmacist for any questions that you may have.] Date Last Reviewed: 04/07/201619991942-3503 [employer]. [address] [place] [address], [place] [address]. All [facility] ts reserved. This information is not intended as a substitute for professional medical care. Always follow your healthcare professional's instructions. Warfarin tablets Brand Names: Coumadin, Jantoven What is this medicine? WARFARIN (WAR far in) is an anticoagulant. It is used to treat or prevent clots in the vein s, arteries, lungs, or heart. How should I use this medicine? Take this medicine by mouth with a glass of water. Follow the directions on the prescriptio n label. You can take this medicine with or without food. Take your medicine at the same rohit e each day. Do not take it more often than directed. Do not stop taking except on your docto r's advice. Stopping this medicine may increase your risk of a blood clot. Be sure to refill your prescription before you run out of medicine. If your doctor or healthcare professional calls to change your dose, write down the dose an d any other instructions. Always read the dose and instructions back to him or her to make s ure you understand them. Tell your doctor or healthcare professional what strength of tablet s you have on hand. Ask how many tablets you should take to equal your new dose. Write the d ate on the new instructions and keep them near your medicine. If you are told to stop taking your medicine until your next blood test, call your doctor or healthcare professional if yo u do not hear anything within 24 hours of the test to find out your new dose or when to rest art your prior dose. A special MedGuide will be given to you by the pharmacist with each prescription and refill . Be sure to read this information carefully each time. Talk to your [place] regarding the use of this medicine in children. Special care may be needed. What side effects may I notice from receiving this medicine? Side effects that you should report to your doctor or health rn primary care as soon as p ossible: allergic reactions like skin rash, itching or hives, swelling of the face, lips, or tong ue breathing problems chest pain dizziness headache heavy menstrual bleeding or vaginal bleeding pain in the lower back or side painful, blue or purple toes painful skin ulcers that do not go away signs and symptoms of bleeding such as bloody or black, tarry stools; red or dark-brown urine; spitting up blood or brown material that looks like coffee grounds; red spots on the skin; unusual bruising or bleeding from the eye, gums, or nose stomach pain unusually weak or tired Side effects that usually do not require medical attention (report to your doctor or health rn primary care if they continue or are bothersome): diarrhea hair loss What may interact with this medicine? Do not take this medicine with any of the following medications: agents that prevent or dissolve blood clots aspirin or other salicylates danshen dextrothyroxine mifepristone Natasha's Wort red yeast rice This medicine may also interact with the following medications: acetaminophen agents that lower cholesterol alcohol allopurinol amiodarone antibiotics or medicines for treating bacterial, fungal or viral infections azathioprine barbiturate medicines for inducing sleep or treating seizures certain medicines for diabetes certain medicines for heart rhythm problems certain medicines for hepatitis C virus infections like daclatasvir, dasabuvir; ombitasv ir; paritaprevir; ritonavir, elbasvir; grazoprevir, ledipasvir; sofosbuvir, simeprevir, sofo sbuvir, sofosbuvir; velpatasvir, sofosbuvir; velpatasvir; voxilaprevir certain medicines for high blood pressure chloral hydrate cisapride conivaptan disulfiram female hormones, including contraceptive or control pills general anesthetics herbal or dietary products like garlic, ginkgo, ginseng, green tea, or kava kava influenza virus vaccine male hormones medicines for mental depression or psychosis medicines for some types of cancer medicines for stomach problems methylphenidate NSAIDs, medicines for pain and inflammation, like ibuprofen or naproxen propoxyphene quinidine, quinine raloxifene seizure or epilepsy medicine like carbamazepine, phenytoin, and valproic acid steroids like cortisone and prednisone tamoxifen thyroid medicine tramadol vitamin c, vitamin e, and vitamin K zafirlukast zileuton What if I miss a dose? It is important not to miss a dose. If you miss a dose, call your healthcare provider. Take the dose as soon as possible on the same day. If it is almost time for your next dose, take only that dose. Do not take double or extra doses to make up for a missed dose. Where should I keep my medicine? Keep out of the reach of children. Store at room temperature between 15 and 30 degrees C (59 and 86 degrees F). Protect from l ight. Throw away any unused medicine after the expiration date. Do not flush down the toilet . What should I tell my health care provider before I take this medicine? They need to know if you have any of these conditions: alcoholism anemia bleeding disorders cancer diabetes heart disease high blood pressure history of bleeding in the gastrointestinal tract history of stroke or other brain injury or disease kidney or liver disease protein C deficiency protein S deficiency psychosis or dementia recent injury, recent or planned surgery or procedure an unusual or allergic reaction to warfarin, other medicines, foods, dyes, or preservati ves or trying to get breast-feeding What should I watch for while using this medicine? Visit your doctor or health rn primary care for regular checks on your progress. You will need to have a blood test called a PT/INR regularly. The PT/INR blood test is done to make sure you are getting the right dose of this medicine. It is important to not miss your appoi ntment for the blood tests. When you first start taking this medicine, these tests are done often. Once the correct dose is determined and you take your medicine properly, these tests can be done less often. Notify your doctor or health rn primary care and seek emergency treatment if you develop breathing problems; changes in vision; chest pain; severe, sudden headache; pain, swelling, warmth in the leg; trouble speaking; sudden numbness or weakness of the face, arm or leg. Th sada can be signs that your condition has gotten worse. While you are taking this medicine, carry an identification card with your name, the name a nd dose of medicine(s) being used, and the name and phone number of your doctor or health ca re professional or person to contact in an emergency. Do not start taking or stop taking any medicines or ezlo-rov-sviebuq medicines except on th e advice of your doctor or health rn primary care. You should discuss your diet with your doctor or health rn primary care. Do not make alexia r changes in your diet. Vitamin K can affect how well this medicine works. Many foods contai n vitamin K. It is important to eat a consistent amount of foods with vitamin K. Other foods with vitamin K that you should eat in consistent amounts are asparagus, basil, black eyed p eas, broccoli, brussel sprouts, cabbage, green onions, green tea, parsley, green leafy veget nish like beet greens, deepika greens, kale, spinach, turnip greens, or certain lettuces li ke green leaf or bryant. This medicine can cause defects or bleeding in an unborn child. Women of childbearing age should use effective control while taking this medicine. If a woman becomes pregn ant while taking this medicine, she should discuss the potential risks and her options with her health rn primary care. Avoid sports and activities that might cause injury while you are using this medicine. Nesha re falls or injuries can cause unseen bleeding. Be careful when using sharp tools or knives. Consider using an electric razor. Take special care brushing or flossing your teeth. Report any injuries, bruising, or red spots on the skin to your doctor or health rn primary care . If you have an illness that causes vomiting, diarrhea, or fever for more than a few days, c ontact your doctor. Also check with your doctor if you are unable to eat for several days. T hese problems can change the effect of this medicine. Even after you stop taking this medicine, it takes several days before your body recovers i ts normal ability to clot blood. Ask your doctor or health rn primary care how long you ne ed to be careful. If you are going to have surgery or dental work, tell your doctor or [facility] rn primary care that you have been taking this medicine. NOTE:This sheet is a summary. It may not cover all possible information. If you have questi ons about this medicine, talk to your doctor, pharmacist, or health care provider. Copyright 2019 [employer] documented in this encounter Medications at Time of Discharge + + + +---------+ + + | Medication | Sig | Dispensed | Refills | Start | End Date | | | | | | Date | | + + + +---------+ + + | enoxaparin | Inject 0.8 mLs under | 8 mL | 0 | 02/12/20 | | | (LOVENOX) 80 mg/0.8 | the skin every 12 | | | 20 | 0 | | mL injection | hours for 5 days. | | | | | + + + +---------+ + + documented as of this encounter Progress Notes Silke Carl RPH - 02/12/2020 10:11 AM PDTFormatting of this note might be differ ent from the original. Pharmacy Warfarin Monitoring: Juan Alberto Walsh male 89 y.o., admitted for new pulmonary embolism s/p EKOS catheter with alteplase. Cathete r sheaths removed this morning. Pharmacy consulted to dose warfarin per: Dr. Keita INDICATION: PE OTHER ANTICOAGULATION: Heparin infusion (bridge to therapeutic INR) DRUG INTERACTIONS: none currently PATIENT DIET: general diet started 02/10 Recent Labs Lab 02/12/20 0402 02/11/20 0802 02/10/20 2234 HGB 12.9* 13.4 14.0 HCT 39.9 40.1 42.4 PLT 139* 127* 143* INR 1.1 1.1 1.2 DATE 02/11 02/10 INR 1.1 1.1 Warfarin Dose 5 mg planned 5 mg Assessment: No current drug interactions and appears to be tolerating general diet (80% consumption of recent meal) Plan per physician is to start Lovenox to continue bridge therapy outpatient Will continue current regimen per protocol Plan: Warfarin 5 mg po today INR in am Pharmacy will continue to follow and modify therapy as indicated. Silke Carl RPH 02/12/2020 10:06 AM Associated attestation - Destiny Valencia [facility] - 02/12/2020 3:00 PM PDTI agree with the resident's assessment and plan. Continue nomogram dosing of 5 mg daily. Destiny Valencia PharmD, [facility] 02/12/20 3:00 PM Destiny Valencia [facility] - 02/11/2020 2:04 PM PDT Pharmacy Warfarin Monitoring: Juan Alberto Walsh male 89 y.o., admitted for new pulmonary embolism s/p EKOS catheter with alteplase. Cathete r sheaths removed this morning. Pharmacy consulted to dose warfarin per: Dr. Keita INDICATION: PE OTHER ANTICOAGULATION: Heparin infusion (bridge to therapeutic INR) DRUG INTERACTIONS: none currently PATIENT DIET: general diet started 02/10 Recent Labs Lab 02/11/20 0802 02/10/20 2234 HGB 13.4 14.0 PLT 127* 143* INR 1.1 1.2 DATE 02/10 INR 1.1 Warfarin Dose 5 mg planned Assessment: Baseline INR is 1.1 Initiating the recommended warfarin nomogram dose of 5 mg Plan: Warfarin 5 mg po today INR in am Pharmacy will continue to follow and modify therapy as indicated. Destiny Valencia PharmD, [facility] 02/11/20 2:03 PM Maryse Persaud RN - 02/11/2020 11:32 AM PDT . [facility] Service: Wound Care Consult Note Hospital Day: 0 SUBJECTIVE Patient Summary: Wound care consulted for a possible pressure injury to the right but tocks. 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 He denies any discomfort from lesion. This lesion blan ches and is not from pressure. Pt states he does not want a bandage over it and open to air is just fine. Thank you for this consult. Please call if there are any additional questions. Maryse Orosco RN, CMSRN, [facility] Inpatient Wound Ostomy Care [phone] 02/11/2020 11:32 AM Felisha Joseph PA - 02/11/2020 9:55 AM PDT Interventional Radiology Progress Note Patient Name: Juan Alberto Walsh Date of : 1930 Interval History/Subjective: Juan Alberto Walsh is a 89 y.o. male with saddle embolism and right heart strain s/p success ful pulmonary artery lysis. Sheath was removed this morning without difficulty. Patient repo rts feeling "good, just hungry" today. Currently on 1 liter. Reports breathing without diffi culty and he does not have any concerns or questions at this time. Labs: 3 Day Labs: Recent Labs Lab 02/11/20 0802 02/11/20 0402 02/10/20 2234 WBC -- -- 10.13 HGB -- -- 14.0 HCT -- -- 42.4 PLT -- -- 143* NA -- 138 -- K -- 3.9 -- CL -- 106 -- CO2 -- 24 -- BUN -- 16 -- CALCIUM -- 8.4* -- PHOS -- 2.9 -- MG -- 1.8 -- PTT 37* -- 158* INR 1.1 -- 1.2 Pertinent Imaging/Procedures: Ir Angiogram Pulmonary Bilateral Result Date: 02/11/2020 BILATERAL PULMONARY ANGIOGRAM AND LYSIS CATHETER PLACEMENT CLINICAL INFORMATION: Saddle emb olism with right heart strain and elevated troponins COMPARISON: Outside hospital CT angiogr am of the chest 02/10/2020 PROCEDURE: The risks, benefits and alternatives were discussed with the patient; consent was obtained and placed in the patient's chart. The risks included but were not limited to puncture site bleeding, stroke, kidney failure, allergic reaction and d eath. Patient was placed in the supine position and both groins were sterilely prepped and d raped in the standard fashion. 1% lidocaine was used for local anesthetic. Under real-time ultrasound guidance used to access the right common femoral vein. Two separate access site s were obtained and 2x45 cm 5 Salvadorean sheaths were placed. Using an angled pigtail catheter 1st the left and then the right main pulmonary arteries were selected. Bilateral pulmonary angiography was performed. Over an exchange length carol and wire 12 cm infusion length rico ters were placed in the left and right pulmonary arteries. Contrast was injected to confirm catheter placement. The catheters were secured to the groin and connected to tPA infusion and heparin drip. Maximum sterile barrier techniques taken. All staff present in the room pe rformed hand hygiene prior to the procedure. There were no immediate complications following the procedure. Estimated blood loss: Minimal. Fluoro Time: 9.3 minutes Contrast: 20 cc Omni paque 240 Radiation dose: 57 mGy Number of images: 5 A permanent sonographic recording was c reated for the patient's record. FINDINGS: Patency of the right common femoral vein was demo nstrated via ultrasound. Angiography shows filling defects throughout the pulmonary arteries predominantly in the central pulmonary arteries and left upper lobe. Final image shows pulm onary artery lysis catheters in appropriate position. Successful pulmonary artery lysis catheter placement. The catheters will be connected to t PA 0.5 mg/hr per side for 6 hours. If the Fibrinogen level falls by greater than 1/2 baselin e or to less than 150, decrease dose by half. If there is any sign of bleeding or fibrinogen <100 discontinue tPA. Catheters will be removed by a member of the interventional radiolgy team in the morning of 02/11/2020. Signed by: Collette Martinez Matthew Sign Date/Time: 02/11/2020 12:33 AM Physical Examination: Vitals: 02/11/20 0800 BP: 110/58 Pulse: 79 Resp: 29 Temp: 36.9 C (98.4 F) Physical Exam Constitutional: He is oriented to person, place, and time. No distress. HENT: Head: Normocephalic and atraumatic. Neck: Neck supple. Cardiovascular: Normal rate. Right groin side bandage C/D/I. Very small hematoma, approximately dime-sized. Right groin Mildly TTP. Pulmonary/Chest: Effort normal. No respiratory distress. Neurological: He is alert and oriented to person, place, and time. Skin: Skin is warm and dry. He is not diaphoretic. Psychiatric: Mood and affect normal. Assessment and Plan: Saddle embolism with right heart strain s/p successful pulmonary artery lysis. Sheaths melecio tip this morning. Patient to lie flat x 2 hours then progressive mobility as tolerated with groin checks every few hours today. He continues on a heparin drip, which is being managed b y primary team. RN weaned off supplemental O2 and patient maintaining sats > 92% on RA. IR w ill sign off at this time, please contact us if any further questions/issues arise. AL[facility] V[facility] and Interventional Radiology documented in this en counter Plan of Treatment +--------+---------+ + + + | Date | Type | Specialty | Care Team | Description | +--------+---------+ + + + | 07/03/ | Office | Cardiology | Giselle Garcia DO | | | 2019 | Visit | | [address] | | | | | | [place] | | | | | | [address] | | | | | | | | +--------+---------+ + + + + +------+--------+ + + | Name | Type | Priori | Associated Diagnoses | Date/Time | | | | ty | | | + +------+--------+ + + | ED INFORMATION | FIONA | Routin | | 02/10/2020 10:02 PM | | EXCHANGE | | e | | PDT | + +------+--------+ + + + + +--------+ + + | Name | Type | Priori | Associated Diagnoses | Order Schedule | | | | ty | | | + + +--------+ + + | Ambulatory Referral | Outpatient | Routin | Acute pulmonary | Ordered: 02/12/2020 | | to [facility] | Referral | e | embolism, | | | Anticoagulation | | | unspecified | | | Monitoring | | | pulmonary embolism | | [...] + + documented in this encounter Results PTT (02/12/2020 8:06 AM PDT) + + + + + + | Component | Value | Ref Range | Performed | Pathologist | | | | | At | Signature | + + + + + + | PTT | 70 (H)Comment: Testing | 23 - 32 seconds | [facility] | | | | performed at [facility] | | LAB[facility]ATORY | | | | [facility];[place], [place] | | | | | | [address] | | | | + + + + + + + + | Specimen | + + | Blood | + + + + + + + | Performing | Address | City/State/Zipcode | Phone Number | | Organization | | | | + + + + + | [facility] | [address] | [place] [address] | [phone] | + + + + + Jennifer MAYFIELD (02/12/2020 4:02 AM PDT) + + + + + [...] | | | | | performed at [facility] | | | | | | [facility];[place], [place] | | | | | | [address] | | | | + + + + + + + + | Specimen | + + | Blood | + + + + + + + | Performing | Address | City/State/Zipcode | Phone Number | | Organization | | | | + + + + + | [facility] | [address] | [place] [address] | [phone] | + + + + + Phosphorus (02/12/2020 4:02 AM PDT) + + + + + + | Component | Value | Ref Range | Performed | Pathologist | | | | | At | Signature | + + + + + + | Phosphorus | 2.6Comment: Testing | 2.3 - 4.8 mg/dL | [facility] | | | | performed at [facility] | | LABORATORY | | | | [address];[place] | | | | | | [address] | | | | + + + + + + + + | Specimen | + + | Blood | + + + + + + + | Performing | Address | City/State/Zipcode | Phone Number | | Organization | | | | + + + + + | [facility] | [address] | [place] [address] | [phone] | + + + + + Magnesium (02/12/2020 4:02 AM PDT) + + + + + + | Component | Value | Ref Range | Performed | Pathologist | | | | | At | Signature | + + + + + + | Magnesium | 2.0Comment: Testing | 1.7 - 2.4 mg/dL | [facility] | | | | performed at [facility] | | LABORATORY | | | | [address];[place] | | | | | | [address] | | | | + + + + + + + + | Specimen | + + | Blood | + + + + + + + | Performing | Address | City/State/Zipcode | Phone Number | | Organization | | | | + + + + + | [facility] | [address] | [place] [address] | [phone] | + + + + + CBC with Differential (02/12/2020 4:02 AM PDT) + + + + + + | Component | Value | Ref Range | Performed | Pathologist | | | | | At | Signature | + + + + + + | WBC | 6.43 | 3.80 - 11.00 | [facility] | [...] 0.02Comment: Testing | 0.00 - 0.10 | [facility] | | | Absolute | performed at [facility] | [address]L | LABORATORY | | | | [address];[place] | | | | | | [address] | | | | + + + + + + + + | Specimen | + + | Blood | + + + + + + + | Performing | Address | City/State/Zipcode | Phone Number | | Organization | | | | + + + + + | [facility] | [address] | [place] [address] | [phone] | + + + + + Basic Metabolic Panel (02/12/2020 4:02 AM PDT) + + + + + [...] 8.4 (L) | 8.5 - 10.5 | [facility] | | | | | mg/dL | LABORATORY | | + + + + + + | Estimated | >60Comment: GFR <60: | >60 | [facility] | | | GFR | CHRONIC KIDNEY [...] | | | | | performed at [facility] | | | | | | [facility];[place], [place] | | | | | | [address] | | | | + + + + + + + + | Specimen | + + | Blood | + + + + + + + | Performing | Address | City/State/Zipcode | Phone Number | | Organization | | | | + + + + + | [facility] | [address] | [place] [address] | [phone] | + + + + + PTT (02/12/2020 12:58 AM PDT) + + + + + + | Component | Value | Ref Range | Performed | Pathologist | | | | | At | Signature | + + + + + + | PTT | 59 (H)Comment: Testing | 23 - 32 seconds | [facility] | | | | performed at [facility] | | LABORATORY | | | | [address];[place], [place] | | | | | | [address] | | | | + + + + + + + + | Specimen | + + | Blood | + + + + + + + | Performing | Address | City/State/Zipcode | Phone Number | | Organization | | | | + + + + + | [facility] | [address] | [place] [address] | [phone] | + + + + + Troponin I (02/11/2020 7:50 PM PDT) + + + + + + | Component | Value | Ref Range | Performed | Pathologist | | | | | At | Signature | + + + + + + | Troponin I | 0.256 (H)Comment: 0.04 | 0.00 - 0.04 | [facility] | | | | ng/mL or less [...] at | | | | | | [facility] [facility] | | | | | | [facility];[place] [address] | | | | + + + + + + + + | Specimen | + + | Blood | + + + + + + + | Performing | Address | City/State/Zipcode | Phone Number | | Organization | | | | + + + + + | [facility] | [address] | [place] [address] | [phone] | + + + + + PTT (02/11/2020 5:05 PM PDT) + + + + + + | Component | Value | Ref Range | Performed | Pathologist | | | | | At | Signature | + + + + + + | PTT | 77 (HH)Comment: CALLED | 23 - 32 seconds | [facility] | | | | NURSING UNITREAD BACK | | LABORATORY | | | | RESULTS VERIFIEDMAJO Roth | | | | | | RN 9RP @ 7355 DLSTesting | | | | | | performed at [facility] | | | | | | [address];[place] | | | | | | [address] | | | | + + + + + + + + | Specimen | + + | Blood | + + + + + + + | Performing | Address | City/State/Zipcode | Phone Number | | Organization | | | | + + + + + | [facility] | [address] | [place] [address] | [phone] | + + + + + Fibrinogen (02/11/2020 12:35 PM PDT) + + + + + + | Component | Value | Ref Range | Performed | Pathologist | | | | | At | Signature | + + + + + + | Fibrinogen | 600 (H)Comment: Testing | 200 - 450 mg/dL | [facility] | | | | performed at [facility] | | LABORATORY | | | | [address];[place], [place] | | | | | | [address] | | | | + + + + + + + + | Specimen | + + | Blood | + + + + + + + | Performing | Address | City/State/Zipcode | Phone Number | | Organization | | | | + + + + + | [facility] | [address] | [place] [address] | [phone] | + + + + + Troponin I (02/11/2020 12:32 PM PDT) + + + + + + | Component | Value | Ref Range | Performed | Pathologist | | | | | At | Signature | + + + + + + | Troponin I | 0.42 (H)Comment: 0.04 | 0.00 - 0.04 | [facility] | | | | ng/mL or less [...] at | | | | | | [facility] [facility] | | | | | | [facility];[place] [address] | | | | + + + + + + + + | Specimen | + + | Blood | + + + + + + + | Performing | Address | City/State/Zipcode | Phone Number | | Organization | | | | + + + + + | [facility] | [address] | [place] [address] | [phone] | + + + + + PTT (02/11/2020 8:02 AM PDT) + + + + + + | Component | Value | Ref Range | Performed | Pathologist | | | | | At | Signature | + + + + + + | PTT | 37 (H)Comment: Testing | 23 - 32 seconds | [facility] | | | | performed at [facility] | | LAB[place]ATORY | | | | [address];[place] | | | | | | [address] | | | | + + + + + + + + | Specimen | + + | Blood | + + + + + + + | Performing | Address | City/State/Zipcode | Phone Number | | Organization | | | | + + + + + | [facility] | [address] | [place] [address] | [phone] | + + + + + Protime INR (02/11/2020 8:02 AM PDT) + + + + + + | Component | Value | Ref Range | Performed | Pathologist | | | | | At | Signature | + + + + + + | INR | 1.1Comment: REFERENCE | | [facility] | | | | RANGE:0.9 - 1.2 [...] | | | | | performed at [facility] [place] | | | | | | [address];[place] | | | | | | [address] | | | | + + + + + + + + | Specimen | + + | Blood | + + + + + + + | Performing | Address | City/State/Zipcode | Phone Number | | Organization | | | | + + + + + | [facility] | [address] | [place] [address] | [phone] | + + + + + CBC with Differential (02/11/2020 8:02 AM PDT) + + + + + + | Component | Value | Ref Range | Performed | Pathologist | | | | | At | Signature | + + + + + + | WBC | 8.16 | 3.80 - 11.00 | [facility] | | | | | K/uL | LABORATORY | | + + + + + + | RBC | 4.71 | 4.20 - 5.70 | [facility] | | | | | M/uL | LABORATORY | | + + + + + + | Hemoglobin | 13.4 | 13.2 - 17.0 | [facility] | | | | | g/dL | LABORATORY | | + + + + + + | Hematocrit | 40.1 | 39.0 - 50.0 % | [facility] | | | | | | LABORATORY | | + + + + + + | MCV | 85.1 | 80.0 - 100.0 fl | [facility] | | | | | | LABORATORY | | + + + + + + | MCH | 28.4 | 27.0 - 34.0 pg | [facility] | | | | | | LABORATORY | | + + + + + + | MCHC | 33.3 | 32.0 - 35.5 | [facility] | | | | | g/dL | LABORATORY | | + + + + + + | RDW-SD | 45.1 | 37 - 53 fl | [facility] | | | | | | LABORATORY | | + + + + + + | Platelet | 127 (L) | 150 - 400 K/uL | [facility] | | | Count | | | LABORATORY | | + + + + + + | MPV | 8.2 | fl | [facility] | | | | | | LABORATORY | | + + + + + + | Diff Type | AUTOMATED | | [facility] | | | | | | LABORATORY | | + + + + + + | % | 78.32 | % | [facility] | | | Neutrophils | | | LABORATORY | | + + + + + + | % | 11.49 | % | [facility] | | | Lymphocytes | | | LABORATORY | | + + + + + + | Monocyte % | 9.19 | % | [facility] | | | | | | LABORATORY | | + + + + + + | Eosinophils | 0.59 | % | [facility] | | | % | | | LABORATORY | | + + + + + + | Basophils % | 0.41 | % | [facility] | | | | | | LABORATORY | | + + + + + + | Neutrophils | 6.39 | 1.90 - 7.40 | [facility] | | | , Absolute | | K/uL | LABORATORY | | + + + + + + | Absolute | 0.94 (L) | 1.00 - 3.90 | [facility] | | | Lymphocytes | | K/uL | LABORATORY | | + + + + + + | Absolute | 0.75 | 0.00 - 0.80 | [facility] | | | Monocytes | | K/uL | LABORATORY | | + + + + + + | Eosinophils | 0.05 | 0.00 - 0.50 | [facility] | | | , Absolute | | K/uL | LABORATORY | | + + + + + + | Basophils, | 0.03Comment: Testing | 0.00 - 0.10 | [facility] | | | Absolute | performed at [facility], [address] | K/uL | LABORATORY | | | | [facility], | | | | | | [place] [address] | | | | + + + + + + + + | Specimen | + + | Blood | + + + + + + + | Performing | Address | City/State/Zipcode | Phone Number | | Organization | | | | + + + + + | [facility] | [address] | [place] [address] | [phone] | + + + + + Fibrinogen (02/11/2020 8:02 AM PDT) + + + + + + | Component | Value | Ref Range | Performed | Pathologist | | | | | At | Signature | + + + + + + | Fibrinogen | 531 (H)Comment: Testing | 200 - 450 mg/dL | [facility] | | | | performed at [facility] | | LABORATORY | | | | [address];[place], [place] | | | | | | [address] | | | | + + + + + + + + | Specimen | + + | Blood | + + + + + + + | Performing | Address | City/State/Zipcode | Phone Number | | Organization | | | | + + + + + | [facility] | [address] | [place] [address] | [phone] | + + + + + Phosphorus (02/11/2020 4:02 AM PDT) + + + + + + | Component | Value | Ref Range | Performed | Pathologist | | | | | At | Signature | + + + + + + | Phosphorus | 2.9Comment: Testing | 2.3 - 4.8 mg/dL | [facility] | | | | performed at [facility] | | LABORATORY | | | | [address];[place], [place] | | | | | | [address] | | | | + + + + + + + + | Specimen | + + | Blood | + + + + + + + | Performing | Address | City/State/Zipcode | Phone Number | | Organization | | | | + + + + + | [facility] | [address] [facility] | [place] [address] | [phone] | + + + + + Magnesium (02/11/2020 4:02 AM PDT) + + + + + + | Component | Value | Ref Range | Performed | Pathologist | | | | | At | Signature | + + + + + + | Magnesium | 1.8Comment: Testing | 1.7 - 2.4 mg/dL | [facility] | | | | performed at [facility] | | LABORATORY | | | | [address];[place], [place] | | | | | | [address] | | | | + + + + + + + + | Specimen | + + | Blood | + + + + + + + | Performing | Address | City/State/Zipcode | Phone Number | | Organization | | | | + + + + + | [facility] | [address] | [place] [address] | [phone] | + + + + + Basic Metabolic Panel (02/11/2020 4:02 AM PDT) + + + + + + | Component | Value | Ref Range | Performed | Pathologist | | | | | At | Signature | + + + + + + | Na | 138 | 135 - 145 | [facility] | | | | | mmol/L | LABORATORY | | + + + + + + | K | 3.9 | 3.5 - 4.9 | [facility] | | | | | mmol/L | LABORATORY | | + + + + + + | Cl | 106 | 99 - 109 mmol/L | [facility] | | | | | | LABORATORY | | + + + + + + | CO2 | 24 | 23 - 32 mmol/L | [facility] | | | | | | LABORATORY | | + + + + + + | Anion Gap | 12 | 5 - 20 mmol/L | [facility] | | | | | | LABORATORY | | + + + + + + | Glucose | 101 (H) | 65 - 99 mg/dL | [facility] | | | | | | LABORATORY | | + + + + + + | BUN | 16 | 8 - 25 mg/dL | [facility] | | | | | | LABORATORY | | + + + + + + | Creatinine | 0.97 | 0.70 - 1.30 | [facility] | | | | | mg/dL | LABORATORY | | + + + + + + | BUN/Creatin | 16 | | [facility] | | | ine Ratio | | | LABORATORY | | + + + + + + | Calcium | 8.4 (L) | 8.5 - 10.5 | [facility] | | | | | mg/dL | LABORATORY | | + + + + + + | Estimated | >60Comment: GFR <60: | >60 | [facility] | | | GFR | CHRONIC KIDNEY [...] | | | | | performed at [facility] | | | | | | [facility];[place], [place] | | | | | | [address] | | | | + + + + + + + + | Specimen | + + | Blood | + + + + + + + | Performing | Address | City/State/Zipcode | Phone Number | | Organization | | | | + + + + + | [facility] | [address] | [place] [address] | [phone] | + + + + + Troponin I (02/11/2020 4:02 AM PDT) + + + + + + | Component | Value | Ref Range | Performed | Pathologist | | | | | At | Signature | + + + + + + | Troponin I | 0.604 (H)Comment: 0.04 | 0.00 - 0.04 | [facility] | | | | ng/mL or less [...] at | | | | | | [facility] | | | | | | [address];[place] [address] | | | | + + + + + + + + | Specimen | + + | Blood | + + + + + + + | Performing | Address | City/State/Zipcode | Phone Number | | Organization | | | | + + + + + | [facility] | [address] | [place] [address] | [phone] | + + + + + MRSA [...] [facility] | | | | performed at [facility] | | LABORATORY | | | | [address];[place] | | | | | | [address] | | | | + + + + + + + + | Specimen | + + | Tissue - Both | | anterior nares (body | | structure) | + + + + + + + | Performing | Address | City/State/Zipcode | Phone Number | | Organization | | | | + + + + + | [facility] | [address] | [place] [address] | [phone] | + + + + + Fibrinogen (02/11/2020 1:30 AM PDT) + + + + + + | Component | Value | Ref Range | Performed | Pathologist | | | | | At | Signature | + + + + + + | Fibrinogen | 559 (H)Comment: Testing | 200 - 450 mg/dL | [facility] | | | | performed at [facility] | | LABORATORY | | | | [address];[place] | | | | | | [address] | | | | + + + + + + + + | Specimen | + + | Blood | + + + + + + + | Performing | Address | City/State/Zipcode | Phone Number | | Organization | | | | + + + + + | [facility] | [address] | [place] [address] | [phone] | + + + + + POC Glucose (02/11/2020 1:03 AM PDT) + + + + + + | Component | Value | Ref Range | Performed | Pathologist | | | | | At | Signature | + + + + + + | Glucose, | 99Comment: Testing | 65 - 99 mg/dL | [facility] | | | POC | performed at [facility] | | LABORATORY | | | | [address];[place] | | | | | | [address] | | | | + + + + + + + + | Specimen | + + | | + + + + + + + | Performing | Address | City/State/Zipcode | Phone Number | | Organization | | | | + + + + + | [facility] | [address] | [place] [address] | [phone] | + + + + + IR [...] | | morning of 02/11/2020. Signed by: Pinon, M.Epi Renee | | | Date/Time: 02/11/2020 12:33 AM [...] | | wereobtained and 2x45 cm 5 Salvadorean sheaths were placed. Using an | | [...] | | obtained and 2x45 cm 5 Salvadorean sheaths were placed. Using an angled | [...] + + | Performing | Address | City/State/[facility] | Phone Number | | Organization | | | | + +---------+ + + | [facility] | | | | + +---------+ + + PTT (02/10/2020 10:34 PM PDT) + + + + + + | Component | Value | Ref Range | Performed | Pathologist | | | | | At | Signature | + + + + + + | PTT | 158 (HH)Comment: CALLED | 23 - 32 seconds | [facility] | | | | TO JOSE JUAN Elizalde RN/DIMITRIS AT | | LABORATORY | | | | 8584 BY MWREAD BACK | | | | | | RESULTS VERIFIEDTesting | | | | | | performed at [facility] | | | | | | [address];[place] | | | | | | [address] | | | | + + + + + + + + | Specimen | + + | Blood | + + + + + + + | Performing | Address | City/State/Zipcode | Phone Number | | Organization | | | | + + + + + | [facility] | [address] | [place] [address] | [phone] | + + + + + Protime INR (02/10/2020 10:34 PM PDT) + + + + + + | Component | Value | Ref Range | Performed | Pathologist | | | | | At | Signature | + + + + + + | INR | 1.2Comment: REFERENCE | | [facility] | | | [...] | | | | | performed at [facility] | | | | | | [facility];[place], [place] | | | | | | [address] | | | | + + + + + + + + | Specimen | + + | Blood | + + + + + + + | Performing | Address | City/State/Zipcode | Phone Number | | Organization | | | | + + + + + | [facility] | [address] | [place] [address] | [phone] | + + + + + CBC no Differential (02/10/2020 10:34 [...] LABORATORY | | | | performed at [facility] | | | | | | [address];[place] | | | | | | [address] | | | | + + + + + + + + | Specimen | + + | Blood | + + + + + + + | Performing | Address | City/State/Zipcode | Phone Number | | Organization | | | | + + + + + | [facility] | [address] | [place] [address] | [phone] | + + + + + Troponin I (02/10/2020 10:20 PM PDT) + + + + + + | Component | Value | Ref Range | Performed | Pathologist | | | | | At | Signature | + + + + + + | Troponin I | 0.563 (H)Comment: 0.04 | 0.00 - 0.04 | [facility] | | | | ng/mL or less [...] at | | | | | | [facility] [place] [address] | | | | | | [facility];[place] [address] | | | | + + + + + + + + | Specimen | + + | Blood | + + + + + + + | Performing | Address | City/State/Zipcode | Phone Number | | Organization | | | | + + + + + | [facility] | [address] | [place] [address] | [phone] | + + + + + ECG 12 lead (02/10/2020 10:19 PM PDT) + + + + + + | Component | Value | Ref Range | Performed | Pathologist | | | | | At | Signature | + + + + + + | VENTRICULAR | 89 | BPM | [facility] | | | RATE EKG | | | | | + + + + + + | ATRIAL RATE | 89 | BPM | [facility] | | + + + + + + | P-R | 266 | ms | [facility] | | | INTERVAL | | | | | + + + + + + | QRS | 86 | ms | [facility] | | | DURATION | | | | | + + + + + + | Q-T | 380 | ms | [facility] | | | INTERVAL | | | | | + + + + + + | Q-T | 462 | ms | [facility] | | | INTERVAL | | | | | | (CORRECTED) | | | | | + + + + + + | P WAVE AXIS | 63 | degrees | [facility] | | + + + + + + | QRS AXIS | 15 | degrees | [facility] | | + + + + + + | T AXIS | 55 | degrees | [facility] | | + + + + + + | INTERPRETAT | Sinus rhythm with 1st | | [facility] | | | ION TEXT | degree A-V | | | | | | blockOtherwise normal | | | | | | ECGNo previous ECGs | | | | | | availableThis ECG | | | | | | contains Unconfirmed | | | | | | Interpretation | | | | | | Statements. See ED | | | | | | Record for Physician | | | | | | Interpretation. | | | | | | Confirmed by MUSE READ | | | | | | ONLY, -COMPUTER ([id number]), | | | | | | clinical editor Veronica Orellana | | | | | | ([id number]) on 02/12/2020 8:06:02 | | | | | | AM | | | | + + [...] + | Diagnosis | + + | Acute pulmonary embolism, unspecified pulmonary embolism type, unspecified whether | | acute cor pulmonale present (HCC) | + + | Syncope, unspecified syncope type | + + | Essential hypertension Unspecified essential hypertension | + + | Acute respiratory failure with hypoxia (HCC) Acute respiratory failure | + + | Bladder cancer (HCC) Malignant neoplasm of bladder, part unspecified | + + documented in this encounter Administered Medications + + + +-------+-------+------+ | Medication Order | MAR | Action | Dose | Rate | Site | | | Action | Date | | | | + + + +-------+-------+------+ | alteplase (ACTIVASE) 0.04 mg/mL | Continue | 02/11/20 | 0.5 | 12.5 | | | in sodium chloride 0.9% 250 mL | d Bag | 20 2:11 | mg/hr | mL/hr | | | infusion (0.04 mg/mL) 0.5 mg/hr | | AM PDT | | | | | (12.5 mL/hr), at 12.5 mL/hr, | | | | | | | Intravenous, TITRATED, Starting | | | | | | | 02/10/20 at 2315, Infuse at 0.5 | | | | | | | mg/hr x 6 hours Do not shake or | | | | | | | send through the tube system. | | | | | | | (EKOS 0.04 mg/mL --> 10 mL/hr = | | | | | | | 0.4 mg/hr; 25 mL/hr = 1 mg/hr; 35 | | | | | | | mL/hr MAX = 1.4 mg/hr), | | | | | | + + + +-------+-------+------+ + +---+ | | | + +---+ | bisacodyl (DULCOLAX) | | | suppository 10 mg 10 mg, Rectal, | | | DAILY PRN, Constipation, | | | Starting 02/11/20 at 0046, If | | | no BM in prior 48 hours and | | | docusate and Miralax ineffective, | | | | | + +---+ | | | + +---+ + +-------+ +--------+---+---+ | docusate sodium (COLACE) | Given | 02/12/20 | 100 mg | | | | capsule 100 mg 100 mg, Oral, 2 | | 20 8:58 | | | | | TIMES DAILY, First dose on Mon | | AM PDT | | | | | 02/11/20 at 0115, Hold for loose | | | | | | | stools, | | | | | | + +-------+ +--------+---+---+ +-------+ +--------+---+---+ | Given | 02/11/20 | 100 mg | | | | | 20 8:35 | | | | | | PM PDT | | | | +-------+ +--------+---+---+ | Given | 02/11/20 | 100 mg | | | | | 20 12:20 | | | | | | PM PDT | | | | +-------+ +--------+---+---+ +---+---+ | | | +---+---+ + +-------+ +-------+---+ + | enoxaparin (LOVENOX) 80 mg/0.8 | Given | 02/12/20 | 80 mg | | Abdomen- | | mL injection 80 mg 80 mg | | 20 10:19 | | | LLQ | | (rounded from 82.1 mg = 1 mg/kg | | AM PDT | | | | | | | | | | | | 82.1 kg), Subcutaneous, EVERY 12 | | | | | | | HOURS INTERVAL, First dose on | | | | | | | 02/12/20 at 1030 | | | | | | + +-------+ +-------+---+ + + +---+ | | | + +---+ | heparin 1,000 units/mL | | | injection 2,000-10,000 Units | | | 2,000-10,000 Units, Intravenous, | | | PRN, Protocol/Titration, Starting | | | 02/11/20 at 0827, FULL DOSE | | | HEPARIN PROTOCOL STARTING | | | heparin infusion dose 18 | | | units/kg/hr, initial rate max | | | 1,800 units/hr. Draw APTT from | | | an IV site other than heparin IV | | | site 6 hours after starting a | | | heparin infusion. APTT Nomogram | | | for ADJUSTING heparin APTT < 20 | | | seconds: Bolus 5,000 units and | | | Increase rate by 4 units/kg/hr | | | Repeat aPTT 6 hr after change | | | APTT 20-29 seconds: Bolus 2,500 | | | units and Increase rate by 2 | | | units/kg/hr Repeat aPTT 6 hr | | | after change APTT 30-45 seconds: | | | Increase rate by 2 units/kg/hr | | | Repeat aPTT 6 hr after | | | change APTT 46-67 seconds: (GOAL | | | RANGE): Full dose therapeutic | | | range No change APTT 68-75 | | | seconds: Decrease rate by 2 | | | units/kg/hr Repeat aPTT 6 hr | | | after change IF aPTT > 75 | | | seconds: Stop infusion for 60 | | | minutes and Decrease rate 3 | | | units/kg/hr Repeat aPTT 6 hr | | | after change , | | + +---+ | | | + +---+ + +---------+ + +-------+---+ | heparin in dextrose 100 | New Bag | 02/10/20 | 18 | 15.1 | | | units/mL infusion 18 Units/kg/hr | | 20 10:23 | Units/kg | mL/hr | | | | | PM PDT | /hr | | | | 83.9 kg (15.102 mL/hr, rounded | | | | | | | to 15.1 mL/hr), at 15.1 mL/hr, | | | | | | | Intravenous, TITRATED, Starting | | | | | | | 02/10/20 at 2220, FULL DOSE | | | | | | | HEPARIN PROTOCOL STARTING | | | | | | | heparin infusion dose 18 | | | | | | | units/kg/hr, initial rate max | | | | | | | 1,800 units/hr. Draw APTT from | | | | | | | an IV site other than heparin IV | | | | | | | site 6 hours after starting a | | | | | | | heparin infusion. APTT Nomogram | | | | | | | for ADJUSTING heparin APTT < 20 | | | | | | | seconds: Bolus 5,000 units and | | | | | | | Increase rate by 4 units/kg/hr | | | | | | | Repeat aPTT 6 hr after change | | | | | | | APTT 20-29 seconds: Bolus 2,500 | | | | | | | units and Increase rate by 2 | | | | | | | units/kg/hr Repeat aPTT 6 hr | | | | | | | after change APTT 30-45 seconds: | | | | | | | Increase rate by 2 units/kg/hr | | | | | | | Repeat aPTT 6 hr after | | | | | | | change APTT 46-67 seconds: (GOAL | | | | | | | RANGE): Full dose therapeutic | | | | | | | range No change APTT 68-75 | | | | | | | seconds: Decrease rate by 2 | | | | | | | units/kg/hr Repeat aPTT 6 hr | | | | | | | after change IF aPTT > 75 | | | | | | | seconds: Stop infusion for 60 | | | | | | | minutes and Decrease rate 3 | | | | | | | units/kg/hr Repeat aPTT 6 hr | | | | | | | after change , | | | | | | + +---------+ + +-------+---+ +---+---+ | | | +---+---+ + +---------+ + +---------+---+ | heparin in dextrose 100 | New Bag | 02/11/20 | 300 | 3 mL/hr | | | units/mL infusion 300 Units/hr | | 20 2:10 | Units/hr | | | | (3 mL/hr), at 3 mL/hr, | | AM PDT | | | | | Intravenous, CONTINUOUS, Starting | | | | | | | 02/11/20 at 0130 | | | | | | + +---------+ + +---------+---+ +---+---+ | | | +---+---+ + +---------+ + +-------+---+ | heparin in dextrose 100 | New Bag | 02/12/20 | 13 | 10.9 | | | units/mL infusion 18 Units/kg/hr | | 20 9:03 | Units/kg | mL/hr | | | | | AM PDT | /hr | | | | 83.9 kg (15.102 mL/hr, rounded | | | | | | | to 15.1 mL/hr), at 15.1 mL/hr, | | | | | | | Intravenous, TITRATED, Starting | | | | | | | 02/11/20 at 0845, FULL DOSE | | | | | | | HEPARIN PROTOCOL STARTING | | | | | | | heparin infusion dose 18 | | | | | | | units/kg/hr, initial rate max | | | | | | | 1,800 units/hr. Draw APTT from | | | | | | | an IV site other than heparin IV | | | | | | | site 6 hours after starting a | | | | | | | heparin infusion. APTT Nomogram | | | | | | | for ADJUSTING heparin APTT < 20 | | | | | | | seconds: Bolus 5,000 units and | | | | | | | Increase rate by 4 units/kg/hr | | | | | | | Repeat aPTT 6 hr after change | | | | | | | APTT 20-29 seconds: Bolus 2,500 | | | | | | | units and Increase rate by 2 | | | | | | | units/kg/hr Repeat aPTT 6 hr | | | | | | | after change APTT 30-45 seconds: | | | | | | | Increase rate by 2 units/kg/hr | | | | | | | Repeat aPTT 6 hr after | | | | | | | change APTT 46-67 seconds: (GOAL | | | | | | | RANGE): Full dose therapeutic | | | | | | | range No change APTT 68-75 | | | | | | | seconds: Decrease rate by 2 | | | | | | | units/kg/hr Repeat aPTT 6 hr | | | | | | | after change IF aPTT > 75 | | | | | | | seconds: Stop infusion for 60 | | | | | | | minutes and Decrease rate 3 | | | | | | | units/kg/hr Repeat aPTT 6 hr | | | | | | | after change , | | | | | | + +---------+ + +-------+---+ + + + +-------+---+ | Rate/Dose Change-Dual Sign | 02/12/20 | 15 | 12.6 | | | | 20 7:08 | Units/kg | mL/hr | | | | AM PDT | /hr | | | + + + +-------+---+ | Rate/Dose Verify | 02/12/20 | 15 | 12.6 | | | | 20 2:17 | Units/kg | mL/hr | | | | AM PDT | /hr | | | + + + +-------+---+ +---+---+ | | | +---+---+ + +-------+ +--------+---+---+ | lidocaine 1% injection PRN, | Given | 02/10/20 | 10 mLs | | | | Starting 02/10/20 at 2343 | | 20 11:43 | | | | | | | PM PDT | | | | + +-------+ +--------+---+---+ + +---+ | | | + +---+ | ondansetron (ZOFRAN) injection | | | 4 mg 4 mg, Intravenous, EVERY 6 | | | HOURS PRN, Nausea, Starting Mon | | | 02/11/20 at 0046, First line agent, | | | | | + +---+ | | | + +---+ | polyethylene glycol (MIRALAX) | | | powder 17 g 17 g, Oral, DAILY | | | PRN, Constipation, Starting Mon | | | 02/11/20 at 0046, If docusate | | | ineffective, give Miralax daily | | | until BM, then PRN (start if no | | | BM on day 2). Mix with 8 oz. | | | water., | | + +---+ | | | + +---+ + +-------+ +------+---+---+ | warfarin (COUMADIN) tablet 5 mg | Given | 02/11/20 | 5 mg | | | | 5 mg, Oral, Daily - Warfarin, | | 20 5:33 | | | | | First dose on 02/11/20 at 1800, | | PM PDT | | | | | Reproductive Risk: Use | | | | | | | appropriate handling precautions. | | | | | | | Drug education required., | | | | | | + +-------+ +------+---+---+ + +---+ | | | + +---+ | warfarin per pharmacy PHARM[facility]Y | | | CONSULT, Starting Ryanne 02/12/20 at | | | 0000, What is the goal INR range | | | for this patient? 2-3 | | + +---+ | | | + +---+ documented in this encounter
--- OUTSIDE RECORDS SUMMARY | ~2020-04-01 | XMS | Encounter Summary ---
Demographics + + + | Address | [address] | | | [place] [address] | + + + | Home Phone | | + + + | Preferred Language | Unknown | + + + | Marital Status | | + + + | Uatsdin Affiliation | Unknown | + + + | Race | Unknown | + + + | Ethnic Group | Unknown | + + + Author + + + | Author | [facility] | | | and [place] | + + + | Organization | [facility] | | | [...] Team Providers + +------+ + | Care Visual Coordinator Name | Role | Phone | + [...] | | | embolism, | [address] | [place] | | | | | unspecified | [place], [place] | [address] | | | | | pulmonary | [address] | [place], | | | | | embolism | Phone: | [place] [address] | | | | | type, | [phone] | Phone: | | | | | unspecified | Fax: | [phone] | | | | | whether | [phone] | Fax: | | | | | acute cor | | [phone] | | | | | pulmonale | | | | | | | present | | | | | | | ([facility]) | | | +--------+ + + + [...] + + | 02/09/ | Hospital | [facility] | Solomon Santos DO | Acute pulmonary | | 2020 - | Encounter | [facility] | [address] | embolism, | | | | [address] | [place], [place] | unspecified | | 02/11/ | | [place], [place] | [address] | pulmonary embolism | | 2019 | | [address] | [phone] | type, unspecified | | | | [phone] | | whether acute cor | | | | | Epi Martinez | pulmonale present | | | | | MD [address] | ([facility]) (Primary Dx); | | | | | [address] | Syncope, unspecified | | | | | [place] [address] | syncope type | | | | | [phone] | | | | | | | | | | | | Eder Álvarez | | | | | | Archie Miller MD [address] | | | | | | [address] | | | | | | [place] [address] | | | | | | [phone] | | | | | | | | | | | | Elizabeth Turcios MD | | | | | | [address] | | | | | | [place] [address] | | | | | | [phone] | | | | | | | [...] with chemotherapy, hypertension was brought in from [facility] where he presented with increasing fatigue, dizziness [...] subcu therapeutic Lovenox with close follow-up with [facility] anticoagulation monitoring. Vital Signs: BP 112/56 | [...] Fair Discharge Procedure Orders Ambulatory Referral to [facility] Anticoagulation Monitoring Referral Priority: Routine Referral [...] a blood clot that has traveled to [facility]. The symptoms include: Chest pain Trouble [...] a cut, or vagina Date Last Reviewed: 12/08/201619995928-5007 [employer]. [address] [place] [address]. All righ ts reserved. This information is [...] the advice of your doctor or health senior care provider. Make sure you receive a puncture-resistant container to dispose of the needles and syringes once you have finished with them. Do not reuse these items. Return the container to your do ctor or health senior care provider for proper disposal. Talk to your occupational therapy technician regarding the use of this medicine in children. Special care may be needed. What side effects may I notice from receiving this medicine? Side effects that you should report to your doctor or health senior care provider as soon as p ossible: allergic reactions [...] attention (report to your doctor or health senior care provider if they continue or are bothersome): pain, [...] this medicine? Visit your doctor or health senior care provider for regular checks on your progress. Your con dition will be monitored carefully while you are receiving this medicine. Notify your doctor or health senior care provider and seek emergency treatment if you develop breathing problems; changes in vision; chest pain; severe, sudden headache; pain, swelling, warmth in the leg; trouble speaking; sudden numbness or weakness of the face, arm, or leg. T hese can be signs that your condition has gotten worse. If you are going to have surgery, tell your doctor or health senior care provider that you are taking this medicine. Do [...] the skin to your doctor or health senior care provider . NOTE:This sheet is a summary. It may not cover all possible information. If you have questi ons about this medicine, talk to your doctor, pharmacist, or health care provider. Copyright 2019 [employer] What to Know When Taking Warfarin Warfarin [...] stopping, starting, or changing any prescription or wlpy-xyj-shbijva (OTC) medicines . This includes herbal medicines [...] products such as ginkgo, Q10, garlic, or [place]'s wort 5. Don't make major changes in [...] nose or a cut, for example. A yvkvkps-cmzn-ekgzuu period or bleeding between periods Coughing or throwing up blood or something that looks like coffee grounds Nausea, bloating,or diarrhea Bleeding hemorrhoids Dark red or brown urine Red or black tarry stools Red or vbuzu-iez-fsha mane on the skin that get larger [...] your doctor right away or go to [facility]. Rash Itching Swelling Trouble swallowing or breathing [NOTE: This information topic may not include all directions, precautions, medical conditio ns, medicine/food interactions, and warnings for this medicine. Check with your doctor, nurs e, or pharmacist for any questions that you may have.] Date Last Reviewed: 04/07/201619998523-6335 [employer]. [address] [place] [address], [place] [address]. All [facility] ts reserved. This information is not [...] information carefully each time. Talk to your occupational therapy technician regarding the use of this medicine in children. Special care may be needed. What side effects may I notice from receiving this medicine? Side effects that you should report to your doctor or health senior care provider as soon as p ossible: allergic reactions [...] attention (report to your doctor or health senior care provider if they continue or are bothersome): diarrhea [...] this medicine? Visit your doctor or health senior care provider for regular checks on your progress. You [...] less often. Notify your doctor or health senior care provider and seek emergency treatment if you develop [...] taking or stop taking any medicines or juyy-ypr-gtblxsn medicines except on th e advice of your doctor or health senior care provider. You should discuss your diet with your doctor or health senior care provider. Do not make alexia r changes in [...] risks and her options with her health senior care provider. Avoid sports and activities that might cause injury while you are using this medicine. Nesha re falls or injuries can cause unseen bleeding. Be careful when using sharp tools or knives. Consider using an electric razor. Take special care brushing or flossing your teeth. Report any injuries, bruising, or red spots on the skin to your doctor or health senior care provider . If you have an illness that [...] clot blood. Ask your doctor or health senior care provider how long you ne ed to be careful. If you are going to have surgery or dental work, tell your doctor or [facility] senior care provider that you have been taking this medicine. [...] 10:06 AM Associated attestation - Destiny Valencia [facility] - 02/12/2020 3:00 PM PDTI agree with the resident's assessment and plan. Continue nomogram dosing of 5 mg daily. Destiny Valencia PharmD, [facility] 02/12/20 3:00 PM Destiny Valencia [facility] - 02/11/2020 2:04 PM PDT Pharmacy Warfarin [...] modify therapy as indicated. Destiny Valencia PharmD, [facility] 02/11/20 2:03 PM Maryse Persaud RN - 02/11/2020 11:32 AM PDT . Service: Wound Care Consult Note Hospital Day: [...] PLAN Right buttocks Wound: Pt states his belt loop cutter told him the wound was a "wisdom [...] any additional questions. Maryse Orosco RN, CMSRN, [facility] Inpatient Wound Ostomy Care [phone] 02/11/2020 11:32 AM Felisha Joseph PA - [...] s were obtained and 2x45 cm 5 Japanese sheaths were placed. Using an angled pigtail [...] us if any further questions/issues arise. ALINA PriceC Vascular and Interventional Radiology documented in this [...] [place] | | | | | | [address] | | | | | | | [...] pulmonary | Ordered: 02/12/2020 | | to [facility] | Referral | e | embolism, [...] KEM | | | | performed at [facility];[address] | | LABORATORY | | | | [facility];[place], [place] | | | | | | [address] | | | | + + + + + + + + | Specimen | + + | Blood | + + + + + + + | Performing | Address | City/State/Zipcode | Phone Number | | Organization | | | | + + + + + | [facility] | [address] | [place] [address] | [phone] | + + + + + Jennifer AMYFIELD (02/12/2020 4:02 AM PDT) + + + [...] | | | | | performed at [facility] | | | | | | [facility];[place], [place] | | | | | | [address] | | | | + + + + + + + + | Specimen | + + | Blood | + + + + + + + | Performing | Address | City/State/Zipcode | Phone Number | | Organization | | | | + + + + + | [facility] | [address] | [place] [address] | [phone] | + + + + + Phosphorus (02/12/2020 4:02 AM PDT) + + + + + + | Component | Value | Ref Range | Performed | Pathologist | | | | | At | Signature | + + + + + + | Phosphorus | 2.6Comment: Testing | 2.3 - 4.8 mg/dL | [facility] | | | | performed at [facility];[address] | | LABORATORY | | | | [address];[place] | | | | | | [address] | | | | + + + + + + + + | Specimen | + + | Blood | + + + + + + + | Performing | Address | City/State/Zipcode | Phone Number | | Organization | | | | + + + + + | [facility] | [address] | [place] [address] | [phone] | + + + + + Magnesium (02/12/2020 4:02 AM PDT) + + + + + + | Component | Value | Ref Range | Performed | Pathologist | | | | | At | Signature | + + + + + + | Magnesium | 2.0Comment: Testing | 1.7 - 2.4 mg/dL | [facility] | | | | performed at [facility];[address] | | LABORATORY | | | | [address];[place] | | | | | | [address] | | | | + + + + + + + + | Specimen | + + | Blood | + + + + + + + | Performing | Address | City/State/Zipcode | Phone Number | | Organization | | | | + + + + + | [facility] | [address] | [place] [address] | [phone] | + + + + + CBC [...] | | | Absolute | performed at [facility];[address] | K/uL | LABORATORY | | | | [address];[place] | | | | | | [address] | | | | + + + + + + + + | Specimen | + + | Blood | + + + + + + + | Performing | Address | City/State/Zipcode | Phone Number | | Organization | | | | + + + + + | [facility] | [address] | [place] [address] | [phone] | + + + + + Basic [...] | >60Comment: GFR <60: | >60 | [facility] | | | GFR | CHRONIC KIDNEY [...] | | | | | performed at [facility] | | | | | | [facility];[place], [place] | | | | | | [address] | | | | + + + + + + + + | Specimen | + + | Blood | + + + + + + + | Performing | Address | City/State/Zipcode | Phone Number | | Organization | | | | + + + + + | [facility] | [address] | [place] [address] | [phone] | + + + + + PTT (02/12/2020 12:58 AM PDT) + + + + + + | Component | Value | Ref Range | Performed | Pathologist | | | | | At | Signature | + + + + + + | PTT | 59 (H)Comment: Testing | 23 - 32 seconds | [facility] | | | | performed at [facility];[address] | | LABORATORY | | | | [address];[place], [place] | | | | | | [address] | | | | + + + + + + + + | Specimen | + + | Blood | + + + + + + + | Performing | Address | City/State/Zipcode | Phone Number | | Organization | | | | + + + + + | [facility] | [address] | [place] [address] | [phone] | + + + + + Troponin I (02/11/2020 7:50 PM PDT) + + + + + + | Component | Value | Ref Range | Performed | Pathologist | | | | | At | Signature | + + + + + + | Troponin I | 0.256 (H)Comment: 0.04 | 0.00 - 0.04 | [facility] | | | | ng/mL or [...] at | | | | | | [facility];[address] [facility] | | | | | | [facility];[place] [address] | | | | + + + + + + + + | Specimen | + + | Blood | + + + + + + + | Performing | Address | City/State/Zipcode | Phone Number | | Organization | | | | + + + + + | [facility] | [address] | [place] [address] | [phone] | + + + + + PTT (02/11/2020 5:05 PM PDT) + + + + + + | Component | Value | Ref Range | Performed | Pathologist | | | | | At | Signature | + + + + + + | PTT | 77 (HH)Comment: CALLED | 23 - 32 seconds | [facility] | | | | NURSING UNITREAD BACK | | LABORATORY | | | | RESULTS VERIFIEDMAJO Roth | | | | | | RN 9RP @ 26[address] | | | | | | performed at [facility];[address] | | | | | | [address];[place] | | | | | | [address] | | | | + + + + + + + + | Specimen | + + | Blood | + + + + + + + | Performing | Address | City/State/Zipcode | Phone Number | | Organization | | | | + + + + + | [facility] | [address] | [place] [address] | [phone] | + + + + + Fibrinogen (02/11/2020 12:35 PM PDT) + + + + + + | Component | Value | Ref Range | Performed | Pathologist | | | | | At | Signature | + + + + + + | Fibrinogen | 600 (H)Comment: Testing | 200 - 450 mg/dL | [facility] | | | | performed at [facility];[address] | | LABORATORY | | | | [address];[place], [place] | | | | | | [address] | | | | + + + + + + + + | Specimen | + + | Blood | + + + + + + + | Performing | Address | City/State/Zipcode | Phone Number | | Organization | | | | + + + + + | [facility] | [address] | [place] [address] | [phone] | + + + + + Troponin [...] at | | | | | | [facility];[address] [facility] | | | | | | [facility];[place] [address] | | | | + + + + + + + + | Specimen | + + | Blood | + + + + + + + | Performing | Address | City/State/Zipcode | Phone Number | | Organization | | | | + + + + + | [facility] | [address] | [place] [address] | [phone] | + + + + + PTT (02/11/2020 8:02 AM PDT) + + + + + + | Component | Value | Ref Range | Performed | Pathologist | | | | | At | Signature | + + + + + + | PTT | 37 (H)Comment: Testing | 23 - 32 seconds | [facility] | | | | performed at [facility];[address] | | LABORATORY | | | | [address];[place] | | | | | | [address] | | | | + + + + + + + + | Specimen | + + | Blood | + + + + + + + | Performing | Address | City/State/Zipcode | Phone Number | | Organization | | | | + + + + + | [facility] | [address] | [place] [address] | [phone] | + + + + + Protime INR (02/11/2020 8:02 AM PDT) + + + + + + | Component | Value | Ref Range | Performed | Pathologist | | | | | At | Signature | + + + + + + | INR | 1.1Comment: REFERENCE | | [facility] | | | | RANGE:0.9 - 1.2 [...] | | | | | performed at [facility];[address] | | | | | | [address];[place] | | | | | | [address] | | | | + + + + + + + + | Specimen | + + | Blood | + + + + + + + | Performing | Address | City/State/Zipcode | Phone Number | | Organization | | | | + + + + + | [facility] | [address] | [place] [address] | [phone] | + + + + + CBC [...] 0.03Comment: Testing | 0.00 - 0.10 | [facility] | | | Absolute | performed at [facility], [address] | K[address]uL | LABORATORY | | | | [address] [facility], | | | | | | [place] [address] | | | | + + + + + + + + | Specimen | + + | Blood | + + + + + + + | Performing | Address | City/State/Zipcode | Phone Number | | Organization | | | | + + + + + | [facility] | [address] | [place] [address] | [phone] | + + + + + Fibrinogen (02/11/2020 8:02 AM PDT) + + + + + + | Component | Value | Ref Range | Performed | Pathologist | | | | | At | Signature | + + + + + + | Fibrinogen | 531 (H)Comment: Testing | 200 - 450 mg/dL | [facility] | | | | performed at [facility];[address] | | LABORATORY | | | | [address];[place], [place] | | | | | | [address] | | | | + + + + + + + + | Specimen | + + | Blood | + + + + + + + | Performing | Address | City/State/Zipcode | Phone Number | | Organization | | | | + + + + + | [facility] | [address] | [place] [address] | [phone] | + + + + + Phosphorus (02/11/2020 4:02 AM PDT) + + + + + + | Component | Value | Ref Range | Performed | Pathologist | | | | | At | Signature | + + + + + + | Phosphorus | 2.9Comment: Testing | 2.3 - 4.8 mg/dL | [facility] | | | | performed at [facility];[address] | | LABORATORY | | | | [address];[place], [place] | | | | | | [address] | | | | + + + + + + + + | Specimen | + + | Blood | + + + + + + + | Performing | Address | City/State/Zipcode | Phone Number | | Organization | | | | + + + + + | [facility] | [address] [facility] | [place] [address] | [phone] | + + + + + Magnesium (02/11/2020 4:02 AM PDT) + + + + + + | Component | Value | Ref Range | Performed | Pathologist | | | | | At | Signature | + + + + + + | Magnesium | 1.8Comment: Testing | 1.7 - 2.4 mg/dL | [facility] | | | | performed at [facility];[address] | | LABORATORY | | | | [address];[place], [place] | | | | | | [address] | | | | + + + + + + + + | Specimen | + + | Blood | + + + + + + + | Performing | Address | City/State/Zipcode | Phone Number | | Organization | | | | + + + + + | [facility] | [address] | [place] [address] | [phone] | + + + + + Basic [...] | | | | | performed at [facility];[address] | | | | | | [facility];[place], [place] | | | | | | [address] | | | | + + + + + + + + | Specimen | + + | Blood | + + + + + + + | Performing | Address | City/State/Zipcode | Phone Number | | Organization | | | | + + + + + | [facility] | [address] | [place] [address] | [phone] | + + + + + Troponin [...] at | | | | | | [facility];[address] | | | | | | [address];[place] [address] | | | | + + + + + + + + | Specimen | + + | Blood | + + + + + + + | Performing | Address | City/State/Zipcode | Phone Number | | Organization | | | | + + + + + | [facility] | [address] | [place] [address] | [phone] | + + + + + MRSA [...] [facility] | | | | performed at [facility] | | LABORATORY | | | | [address];[place] | | | | | | [address] | | | | + + + + + + + + | Specimen | + + | Tissue - Both | | anterior nares (body | | structure) | + + + + + + + | Performing | Address | City/State/Zipcode | Phone Number | | Organization | | | | + + + + + | [facility] | [address] | [place] [address] | [phone] | + + + + + Fibrinogen (02/11/2020 1:30 AM PDT) + + + + + + | Component | Value | Ref Range | Performed | Pathologist | | | | | At | Signature | + + + + + + | Fibrinogen | 559 (H)Comment: Testing | 200 - 450 mg/dL | [facility] | | | | performed at [facility];[address] | | LABORATORY | | | | [address];[place] | | | | | | [address] | | | | + + + + + + + + | Specimen | + + | Blood | + + + + + + + | Performing | Address | City/State/Zipcode | Phone Number | | Organization | | | | + + + + + | [facility] | [address] | [place] [address] | [phone] | + + + + + POC Glucose (02/11/2020 1:03 AM PDT) + + + + + + | Component | Value | Ref Range | Performed | Pathologist | | | | | At | Signature | + + + + + + | Glucose, | 99Comment: Testing | 65 - 99 mg/dL | [facility] | | | POC | performed at [facility];[address] | | LABORATORY | | | | [address];[place] | | | | | | [address] | | | | + + + + + + + + | Specimen | + + | | + + + + + + + | Performing | Address | City/State/Zipcode | Phone Number | | Organization | | | | + + + + + | [facility] | [address] | [place] [address] | [phone] | + + + + + IR [...] | | morning of 02/11/2020. Signed by: [place], M.Epi Renee | | | Date/Time: 02/11/2020 [...] | | wereobtained and 2x45 cm 5 Japanese sheaths were placed. Using an | | [...] | | obtained and 2x45 cm 5 Japanese sheaths were placed. Using an angled | [...] + + | Performing | Address | City/State/[facility] | Phone Number | | Organization | [...] | | LABORATORY | | | | [address] | | | | | | RESULTS VERIFIEDTesting | | | | | | performed at [facility];[address] | | | | | | [address];[place] | | | | | | [address] | | | | + + + + + + + + | Specimen | + + | Blood | + + + + + + + | Performing | Address | City/State/Zipcode | Phone Number | | Organization | | | | + + + + + | [facility] | [address] | [place] [address] | [phone] | + + + + + Protime [...] | | | | | performed at [facility];[address] | | | | | | [facility];[place], [place] | | | | | | [address] | | | | + + + + + + + + | Specimen | + + | Blood | + + + + + + + | Performing | Address | City/State/Zipcode | Phone Number | | Organization | | | | + + + + + | [facility] | [address] [facility] | [place] [address] | [phone] | + + + + + CBC [...] LABORATORY | | | | performed at [facility];[address] | | | | | | [address];[place] | | | | | | [address] | | | | + + + + + + + + | Specimen | + + | Blood | + + + + + + + | Performing | Address | City/State/Zipcode | Phone Number | | Organization | | | | + + + + + | [facility] | [address] | [place] [address] | [phone] | + + + + + Troponin [...] at | | | | | | [facility];[address] [place] [address] | | | | | | [facility];[place] [address] | | | | + + + + + + + + | Specimen | + + | Blood | + + + + + + + | Performing | Address | City/State/Zipcode | Phone Number | | Organization | | | | + + + + + | [facility] | [address] | [place] [address] | [phone] | + + + + + ECG [...] (500), | | | | | | editor & co founder Veronica Orellana | | | | | [...]
--- OUTSIDE RECORDS SUMMARY | ~2020-04-01 | XMS | Clinical Summary ---
Demographics + + + | Address | [address] | | | [place] [address] | + + + | Home Phone | | + + + | Preferred Language | Unknown | + + + | Marital Status | | + + + | Tenriism Affiliation | Unknown | + + + | Race | Unknown | + + + | Ethnic Group | Unknown | + + + Author + + + | Author | [facility] | | | and [place] | + + + | Organization | [facility] | | | and [...] Team Providers + +------+ + | Care Security Systems Administrator Name | Role | Phone | + +------+ + | Antonio Nolasco MD | PCP | | + +------+ + Allergies No Known Allergies Medications No known medications Active Problems + + + | Problem [...] | Anticoagulation | Imani Nevarez, | | | 2019 | | | 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 | | | JOHNSO | | | N, | | | FORRES | | | T | | | R?MRN: | | | | | | [id number] | | | [id number] | | | riteri | | | [...] | | | St. | | | [place] | | | y | | | [...] | | | St. | | | [place] | | | y H. | | [...] | | | ed.? | | | 2019 | | | Colle[employer] | | | tive | | | Medica | | | l | | | Techno | | | logies | | | , Inc. | | | - | | | [email or web address] | | | llecti | | | vemedi | | | [email or web address] | | | m | +---+--------+ from Last 3 Months Results PTT (02/12/2020 8:06 AM PDT)Only the most [...] KEM | | | | performed at [facility];[address] | | LABORATORY | | | | [address];[place] | | | | | | [address] | | | | + + + + + + + + | Specimen | + + | Blood | + + + + + + + | Performing | Address | City/State/Zipcode | Phone Number | | Organization | | | | + + + + + | [facility] | [address] | [place] [address] | [phone] | + + + + + Protime [...] | INR | 1.1Comment: REFERENCE | | [facility] | | | | RANGE:0.9 - [...] | | | | | performed at [facility];[address] | | | | | | [address];[place] | | | | | | [address] | | | | + + + + + + + + | Specimen | + + | Blood | + + + + + + + | Performing | Address | City/State/Zipcode | Phone Number | | Organization | | | | + + + + + | [facility] | [address] | [place] [address] | [phone] | + + + + + CBC [...] | | | Absolute | performed at [facility];[address] | [address] | LABORATORY | | | | [address];[place], [place] | | | | | | [address] | | | | + + + + + + + + | Specimen | + + | Blood | + + + + + + + | Performing | Address | City/State/Zipcode | Phone Number | | Organization | | | | + + + + + | [facility] | [address] | [place] [address] | [phone] | + + + + + Phosphorus (02/12/2020 4:02 AM PDT)Only the most recent of 2 results within the time latisha conn is included. + + + + + + | Component | Value | Ref Range | Performed | Pathologist | | | | | At | Signature | + + + + + + | Phosphorus | 2.6Comment: Testing | 2.3 - 4.8 mg/dL | K[facility] | | | | performed at [facility];8 | | LABORATORY | | | | [address];[place] | | | | | | [address] | | | | + + + + + + + + | Specimen | + + | Blood | + + + + + + + | Performing | Address | City/State/Zipcode | Phone Number | | Organization | | | | + + + + + | [facility] | [address] | [place] [address] | [phone] | + + + + + Magnesium [...] Testing | 1.7 - 2.4 mg/dL | [facility] | | | | performed at [facility];[address] | | LABORATORY | | | | [address];[place], [place] | | | | | | [address] | | | | + + + + + + + + | Specimen | + + | Blood | + + + + + + + | Performing | Address | City/State/Zipcode | Phone Number | | Organization | | | | + + + + + | [facility] | [address] | [place] [address] | [phone] | + + + + + Basic [...] 8.4 (L) | 8.5 - 10.5 | [facility] | | | | | mg/dL | LABORATORY | | + + + + + + | Estimated | >60Comment: GFR <60: | >60 | [facility] | | | GFR | CHRONIC [...] | | | | | performed at [facility];[address] | | | | | | [facility];[place], [place] | | | | | | [address] | | | | + + + + + + + + | Specimen | + + | Blood | + + + + + + + | Performing | Address | City/State/Zipcode | Phone Number | | Organization | | | | + + + + + | [facility] | [address] | [place] [address] | [phone] | + + + + + Troponin [...] at | | | | | | [facility];[address] [facility] | | | | | | [facility];[place] [address] | | | | + + + + + + + + | Specimen | + + | Blood | + + + + + + + | Performing | Address | City/State/Zipcode | Phone Number | | Organization | | | | + + + + + | [facility] | [address] | [place] [address] | [phone] | + + + + + Fibrinogen [...] KR | | | | performed at [facility];[address] | | LABORATORY | | | | [address];[place] | | | | | | [address] | | | | + + + + + + + + | Specimen | + + | Blood | + + + + + + + | Performing | Address | City/State/Zipcode | Phone Number | | Organization | | | | + + + + + | [facility] | [address] | [place] [address] | [phone] | + + + + + MRSA [...] [facility] | | | | performed at [facility] | | LABORATORY | | | | [address];[place], [place] | | | | | | [address] | | | | + + + + + + + + | Specimen | + + | Tissue - Both | | anterior nares (body | | structure) | + + + + + + + | Performing | Address | City/State/Zipcode | Phone Number | | Organization | | | | + + + + + | [facility] | [address] | [place] [address] | [phone] | + + + + + POC Glucose (02/11/2020 1:03 AM PDT) + + + + + + | Component | Value | Ref Range | Performed | Pathologist | | | | | At | Signature | + + + + + + | Glucose, | 99Comment: Testing | 65 - 99 mg/dL | [facility] | | | POC | performed at [facility];[address] | | LABORATORY | | | | [address];[place] | | | | | | [address] | | | | + + + + + + + + | Specimen | + + | | + + + + + + + | Performing | Address | City/State/Zipcode | Phone Number | | Organization | | | | + + + + + | [facility] | [address] | [place] [address] | [phone] | + + + + + IR [...] | | wereobtained and 2x45 cm 5 [place] Islander sheaths were placed. Using an | | [...] | | obtained and 2x45 cm 5 [place] sheaths were placed. Using an angled | [...] | 10.0Comment: NO NORMAL | fl | [facility] | | | | RANGE ESTABLISHEDTesting | | LABORATORY | | | | performed at [facility];[address] | | | | | | [address];[place] | | | | | | [address] | | | | + + + + + + + + | Specimen | + + | Blood | + + + + + + + | Performing | Address | City/State/Zipcode | Phone Number | | Organization | | | | + + + + + | [facility] | [address] | [place] [address] | [phone] | + + + + + ECG [...] (500), | | | | | | medical editor Veronica Orellana | | | | [...] | | | + +---------+ + + from Last 3 Months Insurance [...] +--------+ +---------+--------+ | MEDICARE | MEDICA | [id number] | 07/08/19 | [phone] | | Medica | | | RE | | 98-Pre | 5 | | re | | | PART A | | sent | | | | | | AND B | | | | | | + +--------+ +--------+ +---------+--------+ | [employer] [place] | MUTUAL | [id number] | 03/07/20 | [phone] | | Indemn | | | OF | | 16-Pre | 0 | | ity | | | [place] | | sent | | | | + +--------+ +--------+ [...] Self | [birth year] | [address] | | | al/Fam | | 1930 | [phone] | [place] | | | [place] | | | 9 (Home) | [address] | + +--------+ +--------+ + + Advance Directives + + + + + | Type | Date Recorded | Patient | Explanation | | | | 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
--- OUTSIDE RECORDS SUMMARY | ~2020-04-01 | XMS | Encounter Summary ---
Demographics + + + | Address | [address] | | | [place] [address] | + + + | Home Phone | | + + + | Preferred Language | Unknown | + + + | Marital Status | | + + + | Sabianism Affiliation | Unknown | + + + | Race | Unknown | + + + | Ethnic Group | Unknown | + + + Author + + + | Author | [facility] | | | and [place] | + + + | Organization | [facility] | | | [...] Team Providers + +------+ + | Care Tax Advisor Name | Role | Phone | + +------+ + | Antonio Nolasco MD | PCP | | + +------+ + Encounter Details +--------+ + + + + | Date | Type | Department | Care Team | Description | +--------+ + + + + | 02/13/ | Telephone | [facility] | Jigna Metcalf RN | | | 2020 | | CENTER | | | | | | [facility] | | | | | | [facility] | | | | | | [address] | | | | | | [place] | | | | | | [address] | | | | | | [phone] | | | +--------+ + + + [...] [place] | | | | | | [address] | | | | | | | | +--------+---------+ + + + documented as of this encounter Visit Diagnoses Not on filedocumented in this encounter"
--- OUTSIDE RECORDS SUMMARY | ~2020-04-01 | XMS | Clinical Summary ---
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 | | | [place] | | | y | | | [...] | | | St. | | | [place] | | | y H. | | [...] KEM | | | | performed at [facility];[address] | | LABORATORY | | | | [address];[place] | | | | | | [address] | | | | + + + + + + + + | Specimen | + + | Blood | + + + + + + + | Performing | Address | City/State/Zipcode | Phone Number | | Organization | | | | + + + + + | [facility] | [address] | [place] [address] | [phone] | + + + + + Protime [...] | INR | 1.1Comment: REFERENCE | | [facility] | | | | RANGE:0.9 - 1.2 [...] | | | | | performed at [facility];[address] | | | | | | [address];[place] | | | | | | [address] | | | | + + + + + + + + | Specimen | + + | Blood | + + + + + + + | Performing | Address | City/State/Zipcode | Phone Number | | Organization | | | | + + + + + | [facility] | [address] | [place] [address] | [phone] | + + + + + CBC [...] | | | Absolute | performed at [facility];[address] | K[address] | LABORATORY | | | | [address];[place], [place] | | | | | | [address] | | | | + + + + + + + + | Specimen | + + | Blood | + + + + + + + | Performing | Address | City/State/Zipcode | Phone Number | | Organization | | | | + + + + + | [facility] | [address] | [place] [address] | [phone] | + + + + + Phosphorus [...] KEM | | | | performed at [facility];8 | | LABORATORY | | | | [address];[place] | | | | | | [address] | | | | + + + + + + + + | Specimen | + + | Blood | + + + + + + + | Performing | Address | City/State/Zipcode | Phone Number | | Organization | | | | + + + + + | [facility] | [address] | [place] [address] | [phone] | + + + + + Magnesium [...] Testing | 1.7 - 2.4 mg/dL | [facility] | | | | performed at [facility];[address] | | LABORATORY | | | | [address];[place], [place] | | | | | | [address] | | | | + + + + + + + + | Specimen | + + | Blood | + + + + + + + | Performing | Address | City/State/Zipcode | Phone Number | | Organization | | | | + + + + + | [facility] | [address] | [place] [address] | [phone] | + + + + + Basic [...] 8.4 (L) | 8.5 - 10.5 | [facility] | | | | | mg/dL | LABORATORY | | + + + + + + | Estimated | >60Comment: GFR <60: | >60 | [facility] | | | GFR | CHRONIC KIDNEY [...] | | | | | performed at [facility];[address] | | | | | | [facility];[place], [place] | | | | | | [address] | | | | + + + + + + + + | Specimen | + + | Blood | + + + + + + + | Performing | Address | City/State/Zipcode | Phone Number | | Organization | | | | + + + + + | [facility] | [address] | [place] [address] | [phone] | + + + + + Troponin [...] at | | | | | | [facility];[address] [facility] | | | | | | [facility];[place] [address] | | | | + + + + + + + + | Specimen | + + | Blood | + + + + + + + | Performing | Address | City/State/Zipcode | Phone Number | | Organization | | | | + + + + + | [facility] | [address] | [place] [address] | [phone] | + + + + + Fibrinogen [...] KR | | | | performed at [facility];[address] | | LABORATORY | | | | [address];[place] | | | | | | [address] | | | | + + + + + + + + | Specimen | + + | Blood | + + + + + + + | Performing | Address | City/State/Zipcode | Phone Number | | Organization | | | | + + + + + | [facility] | [address] | [place] [address] | [phone] | + + + + + MRSA [...] [facility] | | | | performed at [facility] | | LABORATORY | | | | [address];[place], [place] | | | | | | [address] | | | | + + + + + + + + | Specimen | + + | Tissue - Both | | anterior nares (body | | structure) | + + + + + + + | Performing | Address | City/State/Zipcode | Phone Number | | Organization | | | | + + + + + | [facility] | [address] | [place] [address] | [phone] | + + + + + POC Glucose (02/11/2020 1:03 AM PDT) + + + + + + | Component | Value | Ref Range | Performed | Pathologist | | | | | At | Signature | + + + + + + | Glucose, | 99Comment: Testing | 65 - 99 mg/dL | [facility] | | | POC | performed at [facility];[address] | | LABORATORY | | | | [address];[place] | | | | | | [address] | | | | + + + + + + + + | Specimen | + + | | + + + + + + + | Performing | Address | City/State/Zipcode | Phone Number | | Organization | | | | + + + + + | [facility] | [address] | [place] [address] | [phone] | + + + + + IR [...] | | wereobtained and 2x45 cm 5 Samoan sheaths were placed. Using an | | [...] | | obtained and 2x45 cm 5 Samoan sheaths were placed. Using an angled | [...] LABORATORY | | | | performed at [facility];[address] | | | | | | [address];[place] | | | | | | [address] | | | | + + + + + + + + | Specimen | + + | Blood | + + + + + + + | Performing | Address | City/State/Zipcode | Phone Number | | Organization | | | | + + + + + | [facility] | [address] | [place] [address] | [phone] | + + + + + ECG [...] (500), | | | | | | publications editor Veronica Orellana | | | | [...] +--------+ +---------+--------+ | MEDICARE | MEDICA | [id number] | 07/08/19 | [phone] | | Medica | | | RE | | 98-Pre | 5 | | re | | | PART A | | sent | | | | | | AND B | | | | | | + +--------+ +--------+ +---------+--------+ | [employer] [place] | MUTUAL | [id number] | 03/07/20 | [phone] | | Indemn | | | OF | | 16-Pre | 0 | | ity | | | [place] | | sent | | | | [...] [place] | | | 9 (Home) | [address] | + +--------+ +--------+ + + Advance Directives + + + + + | Type | Date Recorded | Patient | Explanation | | | | 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
--- OUTSIDE RECORDS SUMMARY | ~2020-04-01 | XMS | Encounter Summary ---
Demographics + + + | Address | [address] | | | [place] [address] | + + + | Home Phone | | + + + | Preferred Language | Unknown | + + + | Marital Status | | + + + | Islam Affiliation | Unknown | + + + | Race | Unknown | + + + | Ethnic Group | Unknown | + + + Author + + + | Author | [facility] | | | and [place] | + + + | Organization | [facility] | | | and [...] Team Providers + +------+ + | Care [employer] Draftsman Name | Role | Phone | + [...] | | | embolism, | BLVD | [place] | | | | | unspecified | [place], [place] | [address] | | | | | pulmonary | [address] | [place], | | | | | embolism | Phone: | [place] [address] | | | | | type, | [phone] | Phone: | | | | | unspecified | Fax: | [phone] | | | | | whether | [phone] | Fax: | | | | | acute cor | | [phone] | | | | | pulmonale | | | | | | | present | | | | | | | ([facility]) | | | +--------+ + + + [...] + + | 02/09/ | Hospital | [facility] | Solomon Santos DO | Acute pulmonary | | 2020 - | Encounter | [facility] | [address] | embolism, | | | | [address] | [place], [place] | unspecified | | 02/11/ | | [place], [place] | [address] | pulmonary embolism | | 2019 | | [address] | [phone] | type, unspecified | | | | [phone] | | whether acute cor | | | | | Epi Martinez | pulmonale present | | | | | MD [address] | ([facility]) (Primary Dx); | | | | | [address] | Syncope, unspecified | | | | | [place] [address] | syncope type | | | | | [phone] | | | | | | | | | | | | Eder Álvarez | | | | | | Archie Miller MD [address] | | | | | | [address] | | | | | | [place] [address] | | | | | | [phone] | | | | | | | | | | | | Elizabeth Turcios MD | | | | | | [address] | | | | | | [place] [address] | | | | | | [phone] | | | | | | | [...] with chemotherapy, hypertension was brought in from [place] where he presented with increasing fatigue, dizziness [...] subcu therapeutic Lovenox with close follow-up with Sh[facility] anticoagulation monitoring. Vital Signs: BP 112/56 | [...] Fair Discharge Procedure Orders Ambulatory Referral to [facility] Anticoagulation Monitoring Referral Priority: Routine Referral Type: [...] a blood clot that has traveled to [facility]. The symptoms include: Chest pain Trouble breathing [...] a cut, or vagina Date Last Reviewed: 12/08/201619990792-8026 [employer]. [address] [place] [address]. All righ ts reserved. This information is [...] the advice of your doctor or health day care director. Make sure you receive a puncture-resistant container to dispose of the needles and syringes once you have finished with them. Do not reuse these items. Return the container to your do ctor or health day care director for proper disposal. Talk to your electrical & instrumentation supervisor regarding the use of this medicine in children. Special care may be needed. What side effects may I notice from receiving this medicine? Side effects that you should report to your doctor or health day care director as soon as p ossible: allergic reactions [...] attention (report to your doctor or health day care director if they continue or are bothersome): pain, [...] this medicine? Visit your doctor or health day care director for regular checks on your progress. Your con dition will be monitored carefully while you are receiving this medicine. Notify your doctor or health day care director and seek emergency treatment if you develop breathing problems; changes in vision; chest pain; severe, sudden headache; pain, swelling, warmth in the leg; trouble speaking; sudden numbness or weakness of the face, arm, or leg. T hese can be signs that your condition has gotten worse. If you are going to have surgery, tell your doctor or health day care director that you are taking this medicine. Do [...] the skin to your doctor or health day care director . NOTE:This sheet is a summary. It may not cover all possible information. If you have questi ons about this medicine, talk to your doctor, pharmacist, or health care provider. Copyright 2019 [employer] What to Know When Taking Warfarin Warfarin [...] stopping, starting, or changing any prescription or lvdw-epz-qdoywjl (OTC) medicines . This includes herbal medicines [...] products such as ginkgo, Q10, garlic, or [place]'s wort 5. Don't make major changes in [...] nose or a cut, for example. A ezxkldu-dljx-ssxrcu period or bleeding between periods Coughing or throwing up blood or something that looks like coffee grounds Nausea, bloating,or diarrhea Bleeding hemorrhoids Dark red or brown urine Red or black tarry stools Red or leqzv-hlq-qijt mane on the skin that get larger [...] your doctor right away or go to [facility]. Rash Itching Swelling Trouble swallowing or breathing [NOTE: This information topic may not include all directions, precautions, medical conditio ns, medicine/food interactions, and warnings for this medicine. Check with your doctor, nurs e, or pharmacist for any questions that you may have.] Date Last Reviewed: 04/07/201619999642-4794 [employer]. [address] [place] [address], [place] [address]. All [facility] ts reserved. This information is not intended [...] information carefully each time. Talk to your electrical & instrumentation supervisor regarding the use of this medicine in children. Special care may be needed. What side effects may I notice from receiving this medicine? Side effects that you should report to your doctor or health day care director as soon as p ossible: allergic reactions [...] attention (report to your doctor or health day care director if they continue or are bothersome): diarrhea [...] this medicine? Visit your doctor or health day care director for regular checks on your progress. You [...] less often. Notify your doctor or health day care director and seek emergency treatment if you develop [...] taking or stop taking any medicines or bpjl-rni-jzxbygr medicines except on th e advice of your doctor or health day care director. You should discuss your diet with your doctor or health day care director. Do not make alexia r changes in [...] risks and her options with her health day care director. Avoid sports and activities that might cause injury while you are using this medicine. Nesha re falls or injuries can cause unseen bleeding. Be careful when using sharp tools or knives. Consider using an electric razor. Take special care brushing or flossing your teeth. Report any injuries, bruising, or red spots on the skin to your doctor or health day care director . If you have an illness that [...] clot blood. Ask your doctor or health day care director how long you ne ed to be careful. If you are going to have surgery or dental work, tell your doctor or [facility] day care director that you have been taking this medicine. [...] 10:06 AM Associated attestation - Destiny Valencia [facility] - 02/12/2020 3:00 PM PDTI agree with the resident's assessment and plan. Continue nomogram dosing of 5 mg daily. Destiny Valencia PharmD, [facility] 02/12/20 3:00 PM Destiny Valencia [facility] - 02/11/2020 2:04 PM PDT Pharmacy Warfarin [...] modify therapy as indicated. Destiny Valencia PharmD, [facility] 02/11/20 2:03 PM Maryse Persaud RN - 02/11/2020 11:32 AM PDT . Located Within [facility] Service: Wound Care Consult Note Hospital Day: [...] PLAN Right buttocks Wound: Pt states his chute tapper told him the wound was a "wisdom [...] any additional questions. Maryse Orosco RN, CMSRN, [facility] Inpatient Wound Ostomy Care [phone] 02/11/2020 11:32 AM Felisha Joseph PA - [...] s were obtained and 2x45 cm 5 Namibian sheaths were placed. Using an angled pigtail [...] [place] | | | | | | [address] | | | | | | | [...] pulmonary | Ordered: 02/12/2020 | | to [facility] | Referral | e | embolism, | [...] KEM | | | | performed at [facility];[address] | | LABORATORY | | | | [facility];[place], [place] | | | | | | [address] | | | | + + + + + + + + | Specimen | + + | Blood | + + + + + + + | Performing | Address | City/State/Zipcode | Phone Number | | Organization | | | | + + + + + | [facility] | [address] | [place] [address] | [phone] | + + + + + Jennifer [...] | | | | | performed at [facility] | | | | | | [facility];[place], [place] | | | | | | [address] | | | | + + + + + + + + | Specimen | + + | Blood | + + + + + + + | Performing | Address | City/State/Zipcode | Phone Number | | Organization | | | | + + + + + | [facility] | [address] | [place] [address] | [phone] | + + + + + Phosphorus (02/12/2020 4:02 AM PDT) + + + + + + | Component | Value | Ref Range | Performed | Pathologist | | | | | At | Signature | + + + + + + | Phosphorus | 2.6Comment: Testing | 2.3 - 4.8 mg/dL | [facility] | | | | performed at [facility];[address] | | LABORATORY | | | | [address];[place] | | | | | | [address] | | | | + + + + + + + + | Specimen | + + | Blood | + + + + + + + | Performing | Address | City/State/Zipcode | Phone Number | | Organization | | | | + + + + + | [facility] | [address] | [place] [address] | [phone] | + + + + + Magnesium (02/12/2020 4:02 AM PDT) + + + + + + | Component | Value | Ref Range | Performed | Pathologist | | | | | At | Signature | + + + + + + | Magnesium | 2.0Comment: Testing | 1.7 - 2.4 mg/dL | [facility] | | | | performed at [facility];[address] | | LABORATORY | | | | [address];[place] | | | | | | [address] | | | | + + + + + + + + | Specimen | + + | Blood | + + + + + + + | Performing | Address | City/State/Zipcode | Phone Number | | Organization | | | | + + + + + | [facility] | [address] | [place] [address] | [phone] | + + + + + CBC [...] | | | Absolute | performed at [facility];[address] | [address] | LABORATORY | | | | [address];[place] | | | | | | [address] | | | | + + + + + + + + | Specimen | + + | Blood | + + + + + + + | Performing | Address | City/State/Zipcode | Phone Number | | Organization | | | | + + + + + | [facility] | [address] | [place] [address] | [phone] | + + + + + Basic [...] | >60Comment: GFR <60: | >60 | [facility] | | | GFR | CHRONIC [...] | | | | | performed at [facility] | | | | | | [facility];[place], [place] | | | | | | [address] | | | | + + + + + + + + | Specimen | + + | Blood | + + + + + + + | Performing | Address | City/State/Zipcode | Phone Number | | Organization | | | | + + + + + | [facility] | [address] | [place] [address] | [phone] | + + + + + PTT (02/12/2020 12:58 AM PDT) + + + + + + | Component | Value | Ref Range | Performed | Pathologist | | | | | At | Signature | + + + + + + | PTT | 59 (H)Comment: Testing | 23 - 32 seconds | [facility] | | | | performed at [facility];[address] | | LABORATORY | | | | [address];[place], [place] | | | | | | [address] | | | | + + + + + + + + | Specimen | + + | Blood | + + + + + + + | Performing | Address | City/State/Zipcode | Phone Number | | Organization | | | | + + + + + | [facility] | [address] | [place] [address] | [phone] | + + + + + Troponin I (02/11/2020 7:50 PM PDT) + + + + + + | Component | Value | Ref Range | Performed | Pathologist | | | | | At | Signature | + + + + + + | Troponin I | 0.256 (H)Comment: 0.04 | 0.00 - 0.04 | [facility] | | | | ng/mL or [...] at | | | | | | [facility];[address] [facility] | | | | | | [facility];[place] [address] | | | | + + + + + + + + | Specimen | + + | Blood | + + + + + + + | Performing | Address | City/State/Zipcode | Phone Number | | Organization | | | | + + + + + | [facility] | [address] | [place] [address] | [phone] | + + + + + PTT (02/11/2020 5:05 PM PDT) + + + + + + | Component | Value | Ref Range | Performed | Pathologist | | | | | At | Signature | + + + + + + | PTT | 77 (HH)Comment: CALLED | 23 - 32 seconds | [facility] | | | | NURSING UNITREAD BACK | | LABORATORY | | | | RESULTS VERIFIEDMAJO Roth | | | | | | RN 9RP @ [address] | | | | | | performed at [facility];[address] | | | | | | [address];[place] | | | | | | [address] | | | | + + + + + + + + | Specimen | + + | Blood | + + + + + + + | Performing | Address | City/State/Zipcode | Phone Number | | Organization | | | | + + + + + | [facility] | [address] | [place] [address] | [phone] | + + + + + Fibrinogen (02/11/2020 12:35 PM PDT) + + + + + + | Component | Value | Ref Range | Performed | Pathologist | | | | | At | Signature | + + + + + + | Fibrinogen | 600 (H)Comment: Testing | 200 - 450 mg/dL | [facility] | | | | performed at [facility];[address] | | LABORATORY | | | | [address];[place], [place] | | | | | | [address] | | | | + + + + + + + + | Specimen | + + | Blood | + + + + + + + | Performing | Address | City/State/Zipcode | Phone Number | | Organization | | | | + + + + + | [facility] | [address] | [place] [address] | [phone] | + + + + + Troponin [...] at | | | | | | [facility];[address] [facility] | | | | | | [facility];[place] [address] | | | | + + + + + + + + | Specimen | + + | Blood | + + + + + + + | Performing | Address | City/State/Zipcode | Phone Number | | Organization | | | | + + + + + | [facility] | [address] | [place] [address] | [phone] | + + + + + PTT (02/11/2020 8:02 AM PDT) + + + + + + | Component | Value | Ref Range | Performed | Pathologist | | | | | At | Signature | + + + + + + | PTT | 37 (H)Comment: Testing | 23 - 32 seconds | [facility] | | | | performed at [facility];[address] | | LABORATORY | | | | [address];[place] | | | | | | [address] | | | | + + + + + + + + | Specimen | + + | Blood | + + + + + + + | Performing | Address | City/State/Zipcode | Phone Number | | Organization | | | | + + + + + | [facility] | [address] | [place] [address] | [phone] | + + + + + Protime INR (02/11/2020 8:02 AM PDT) + + + + + + | Component | Value | Ref Range | Performed | Pathologist | | | | | At | Signature | + + + + + + | INR | 1.1Comment: REFERENCE | | [facility] | | | | RANGE:0.9 - [...] | | | | | performed at [facility];[address] | | | | | | [address];[place] | | | | | | [address] | | | | + + + + + + + + | Specimen | + + | Blood | + + + + + + + | Performing | Address | City/State/Zipcode | Phone Number | | Organization | | | | + + + + + | [facility] | [address] | [place] [address] | [phone] | + + + + + CBC [...] 0.03Comment: Testing | 0.00 - 0.10 | [facility] | | | Absolute | performed at [facility], [address] | [address] | LABORATORY | | | | [address] [facility], | | | | | | [place] [address] | | | | + + + + + + + + | Specimen | + + | Blood | + + + + + + + | Performing | Address | City/State/Zipcode | Phone Number | | Organization | | | | + + + + + | [facility] | [address] | [place] [address] | [phone] | + + + + + Fibrinogen (02/11/2020 8:02 AM PDT) + + + + + + | Component | Value | Ref Range | Performed | Pathologist | | | | | At | Signature | + + + + + + | Fibrinogen | 531 (H)Comment: Testing | 200 - 450 mg/dL | [facility] | | | | performed at [facility];[address] | | LABORATORY | | | | [address];[place], [place] | | | | | | [address] | | | | + + + + + + + + | Specimen | + + | Blood | + + + + + + + | Performing | Address | City/State/Zipcode | Phone Number | | Organization | | | | + + + + + | [facility] | [address] | [place] [address] | [phone] | + + + + + Phosphorus (02/11/2020 4:02 AM PDT) + + + + + + | Component | Value | Ref Range | Performed | Pathologist | | | | | At | Signature | + + + + + + | Phosphorus | 2.9Comment: Testing | 2.3 - 4.8 mg/dL | [facility] | | | | performed at [facility];[address] | | LABORATORY | | | | [address];[place], [place] | | | | | | [address] | | | | + + + + + + + + | Specimen | + + | Blood | + + + + + + + | Performing | Address | City/State/Zipcode | Phone Number | | Organization | | | | + + + + + | [facility] | [address] [facility] | [place] [address] | [phone] | + + + + + Magnesium (02/11/2020 4:02 AM PDT) + + + + + + | Component | Value | Ref Range | Performed | Pathologist | | | | | At | Signature | + + + + + + | Magnesium | 1.8Comment: Testing | 1.7 - 2.4 mg/dL | [facility] | | | | performed at [facility];[address] | | LABORATORY | | | | [address];[place], [place] | | | | | | [address] | | | | + + + + + + + + | Specimen | + + | Blood | + + + + + + + | Performing | Address | City/State/Zipcode | Phone Number | | Organization | | | | + + + + + | [facility] | [address] | [place] [address] | [phone] | + + + + + Basic [...] | | | | | performed at [facility];[address] | | | | | | [facility];[place], [place] | | | | | | [address] | | | | + + + + + + + + | Specimen | + + | Blood | + + + + + + + | Performing | Address | City/State/Zipcode | Phone Number | | Organization | | | | + + + + + | [facility] | [address] | [place] [address] | [phone] | + + + + + Troponin [...] at | | | | | | [facility];[address] | | | | [address];[place] [address] | | | | + + + + + + + + | Specimen | + + | Blood | + + + + + + + | Performing | Address | City/State/Zipcode | Phone Number | | Organization | | | | + + + + + | [facility] | [address] | [place] [address] | [phone] | + + + + + MRSA [...] [facility] | | | | performed at [facility] | | LABORATORY | | | | [address];[place] | | | | | | [address] | | | | + + + + + + + + | Specimen | + + | Tissue - Both | | anterior nares (body | | structure) | + + + + + + + | Performing | Address | City/State/Zipcode | Phone Number | | Organization | | | | + + + + + | [facility] | [address] | [place] [address] | [phone] | + + + + + Fibrinogen (02/11/2020 1:30 AM PDT) + + + + + + | Component | Value | Ref Range | Performed | Pathologist | | | | | At | Signature | + + + + + + | Fibrinogen | 559 (H)Comment: Testing | 200 - 450 mg/dL | [facility] | | | | performed at [facility];[address] | | LABORATORY | | | | [address];[place] | | | | | | [address] | | | | + + + + + + + + | Specimen | + + | Blood | + + + + + + + | Performing | Address | City/State/Zipcode | Phone Number | | Organization | | | | + + + + + | [facility] | [address] | [place] [address] | [phone] | + + + + + POC Glucose (02/11/2020 1:03 AM PDT) + + + + + + | Component | Value | Ref Range | Performed | Pathologist | | | | | At | Signature | + + + + + + | Glucose, | 99Comment: Testing | 65 - 99 mg/dL | [facility] | | | POC | performed at [facility];[address] | | LABORATORY | | | | [address];[place] | | | | | | [address] | | | | + + + + + + + + | Specimen | + + | | + + + + + + + | Performing | Address | City/State/Zipcode | Phone Number | | Organization | | | | + + + + + | [facility] | [address] | [place] [address] | [phone] | + + + + + IR [...] | | morning of 02/11/2020. Signed by: [place], M.Epi Renee | | | Date/Time: 02/11/2020 [...] | | wereobtained and 2x45 cm 5 Namibian sheaths were placed. Using an | | [...] | | obtained and 2x45 cm 5 [place] sheaths were placed. Using an angled | [...] + + | Performing | Address | City/State/[facility] | Phone Number | | Organization [...] | | LABORATORY | | | | [address] | | | | | | RESULTS VERIFIEDTesting | | | | | | performed at [facility];[address] | | | | | | [address];[place] | | | | | | [address] | | | | + + + + + + + + | Specimen | + + | Blood | + + + + + + + | Performing | Address | City/State/Zipcode | Phone Number | | Organization | | | | + + + + + | [facility] | [address] | [place] [address] | [phone] | + + + + + Protime [...] | | | | | performed at [facility];[address] | | | | | | [facility];[place], [place] | | | | | | [address] | | | | + + + + + + + + | Specimen | + + | Blood | + + + + + + + | Performing | Address | City/State/Zipcode | Phone Number | | Organization | | | | + + + + + | [facility] | [address] [facility] | [place] [address] | [phone] | + + + + + CBC [...] LABORATORY | | | | performed at [facility];[address] | | | | | | [address];[place] | | | | | | [address] | | | | + + + + + + + + | Specimen | + + | Blood | + + + + + + + | Performing | Address | City/State/Zipcode | Phone Number | | Organization | | | | + + + + + | [facility] | [address] | [place] [address] | [phone] | + + + + + Troponin [...] at | | | | | | [facility];[address] [place] [address] | | | | | | [facility];[place] [address] | | | | + + + + + + + + | Specimen | + + | Blood | + + + + + + + | Performing | Address | City/State/Zipcode | Phone Number | | Organization | | | | + + + + + | [facility] | [address] | [place] [address] | [phone] | + + + + + ECG [...] (500), | | | | | | film editor supervisor Veronica Orellana | | | | | [...]
--- OUTSIDE RECORDS SUMMARY | ~2020-04-01 | XMS | Clinical Summary ---
Demographics + + + | Address | [address] | | | [place] [address] | + + + | Home Phone | | + + + | Preferred Language | Unknown | + + + | Marital Status | | + + + | Yazdanism Affiliation | Unknown | + + + | Race | Unknown | + + + | Ethnic Group | Unknown | + + + Author + + + | Author | [facility] | | | and [place] | + + + | Organization | [facility] | | | [...] Providers + +------+ + | Care Security Ambassador Name | Role | Phone | + [...] | | | 2019 | | | ANTHROPOLOGY INSTRUCTOR | | +--------+ + + + + [...] | | | | | | ([facility]) (Primary Dx); | | | | [...] [place] | | | | | | [address] | | | | | | | [...] R?MRN: | | | | | | [id number] | | | [id number] | | | riteri | | | [...] | | | St. | | | [place] | | | y | | | [...] | | | St. | | | [place] | | | y H. | | [...] KEM | | | | performed at [facility];[address] | | LABORATORY | | | | [address];[place] | | | | | | [address] | | | | + + + + + + + + | Specimen | + + | Blood | + + + + + + + | Performing | Address | City/State/Zipcode | Phone Number | | Organization | | | | + + + + + | [facility] | [address] | [place] [address] | [phone] | + + + + + Protime [...] | INR | 1.1Comment: REFERENCE | | [facility] | | | | RANGE:0.9 - [...] performed at [facility];[address] | | | | | | [address];[place] | | | | | | [address] | | | | + + + + + + + + | Specimen | + + | Blood | + + + + + + + | Performing | Address | City/State/Zipcode | Phone Number | | Organization | | | | + + + + + | [facility] | [address] | [place] [address] | [phone] | + + + + + CBC [...] | LABORATORY | | | | [address];[place], [place] | | | | | | [address] | | | | + + + + + + + + | Specimen | + + | Blood | + + + + + + + | Performing | Address | City/State/Zipcode | Phone Number | | Organization | | | | + + + + + | [facility] | [address] | [place] [address] | [phone] | + + + + + Phosphorus [...] KEM | | | | performed at [facility];[address] | | LABORATORY | | | | [address];[place] | | | | | | [address] | | | | + + + + + + + + | Specimen | + + | Blood | + + + + + + + | Performing | Address | City/State/Zipcode | Phone Number | | Organization | | | | + + + + + | [facility] | [address] | [place] [address] | [phone] | + + + + + Magnesium [...] Testing | 1.7 - 2.4 mg/dL | [facility] | | | | performed at [facility];[address] | | LABORATORY | | | | [address];[place], [place] | | | | | | [address] | | | | + + + + + + + + | Specimen | + + | Blood | + + + + + + + | Performing | Address | City/State/Zipcode | Phone Number | | Organization | | | | + + + + + | [facility] | [address] | [place] [address] | [phone] | + + + + + Basic [...] 8.4 (L) | 8.5 - 10.5 | [facility] | | | | | mg/dL | LABORATORY | | + + + + + + | Estimated | >60Comment: GFR <60: | >60 | [facility] | | | GFR | CHRONIC [...] performed at [facility];[address] | | | | | | [facility];[place], [place] | | | | | | [address] | | | | + + + + + + + + | Specimen | + + | Blood | + + + + + + + | Performing | Address | City/State/Zipcode | Phone Number | | Organization | | | | + + + + + | [facility] | [address] | [place] [address] | [phone] | + + + + + Troponin [...] | | | | | [facility];[address] [facility] | | | | | | [facility];[place] [address] | | | | + + + + + + + + | Specimen | + + | Blood | + + + + + + + | Performing | Address | City/State/Zipcode | Phone Number | | Organization | | | | + + + + + | [facility] | [address] | [place] [address] | [phone] | + + + + + Fibrinogen [...] KR | | | | performed at [facility];[address] | | LABORATORY | | | | [address];[place] | | | | | | [address] | | | | + + + + + + + + | Specimen | + + | Blood | + + + + + + + | Performing | Address | City/State/Zipcode | Phone Number | | Organization | | | | + + + + + | [facility] | [address] | [place] [address] | [phone] | + + + + + MRSA [...] | | | performed at [facility] | | LABORATORY | | | | [address];[place], [place] | | | | | | [address] | | | | + + + + + + + + | Specimen | + + | Tissue - Both | | anterior nares (body | | structure) | + + + + + + + | Performing | Address | City/State/Zipcode | Phone Number | | Organization | | | | + + + + + | [facility] | [address] | [place] [address] | [phone] | + + + + + POC [...] [place] | | | | | | [address] | | | | + + + + + + + + | Specimen | + + | | + + + + + + + | Performing | Address | City/State/Zipcode | Phone Number | | Organization | | | | + + + + + | [facility] | [address] | [place] [address] | [phone] | + + + + + IR [...] | | wereobtained and 2x45 cm 5 Zambian sheaths were placed. Using an | | [...] | | obtained and 2x45 cm 5 [place]ian sheaths were placed. Using an angled | [...] | 10.0Comment: NO NORMAL | fl | [facility] | | | | RANGE ESTABLISHEDTesting | | LABORATORY | | | | performed at [facility];[address] | | | | | | [address];[place] | | | | | | [address] | | | | + + + + + + + + | Specimen | + + | Blood | + + + + + + + | Performing | Address | City/State/Zipcode | Phone Number | | Organization | | | | + + + + + | [facility] | [address] | [place] [address] | [phone] | + + + + + ECG [...] | | | | | | editor farm journal Veronica Orellana | | | | | [...] +--------+ +---------+--------+ | MEDICARE | MEDICA | [id number] | 07/08/19 | [phone] | | Medica | | | RE | | 98-Pre | 5 | | re | | | PART A | | sent | | | | | | AND B | | | | | | + +--------+ +--------+ +---------+--------+ | [employer] [place] | MUTUAL | [id number] | 03/07/20 | [phone] | | Indemn | | | OF | | 16-Pre | 0 | | ity | | | [place] | | sent | | | | [...] roque | | | 9 (Home) | [address] | + +--------+ +--------+ + + Advance Directives + + + + + | Type | Date Recorded | Patient | Explanation | | | | Hem Inspector | | + + + + + | Power of | | | | | Liquid Fertilizer Servicer | | | | + + + [...]
--- OUTSIDE RECORDS SUMMARY | ~2020-04-01 | XMS | Encounter Summary ---
Demographics + + + | Address | [address] | | | [place] [address] | + + + | Home Phone | | + + + | Preferred Language | Unknown | + + + | Marital Status | | + + + | Confucianism Affiliation | Unknown | + + + | Race | Unknown | + + + | Ethnic Group | Unknown | + + + Author + + + | Author | [facility] | | | and [place] | + + + | Organization | [facility] | | | and [...] Team Providers + +------+ + | Care Compressor Station Chief Engineer Name | Role | Phone | + +------+ + | Antonio Nolasco MD | PCP | | + +------+ + Encounter Details +--------+--------+ + + + | Date | Type | Department | Care Team | Description | +--------+--------+ + + + | 02/09/ | Intake | [facility] | | N/A | | 2019 | | [place] [address] | | | | | | [address] | | | | | | [place], [place] | | | | | | [address] | | | | | | [phone] | | | +--------+--------+ + + + [...] [place] | | | | | | 8[address] | | | | | | | | +--------+---------+ + + + documented as of this encounter Visit Diagnoses Not on filedocumented in this encounter"
--- OUTSIDE RECORDS SUMMARY | ~2020-04-01 | XMS | Encounter Summary ---
Demographics + + + | Address | [address] | | | [place] [address] | + + + | Home Phone | | + + + | Preferred Language | Unknown | + + + | Marital Status | | + + + | Moravian Affiliation | Unknown | + + + | Race | Unknown | + + + | Ethnic Group | Unknown | + + + Author + + + | Author | [facility] | | | and [place] | + + + | Organization | [facility] | | | [...] Team Providers + +------+ + | Care Viscera Washer Name | Role | Phone | + +------+ + | Antonio Nolasco MD | PCP | | + +------+ + Encounter Details +--------+ + + + + | Date | Type | Department | Care Team | Description | +--------+ + + + + | 02/24/ | Telephone | [facility] | Imani Nevarez, | | | 2019 | | CENTER | EMBROIDERER HAND | | | | | ANTICOAGULATION | | | | | | [facility] [place] | | | | | | [address] | | | | | | [place], [place] | | | | | | [address] | | | | | | [phone] | | | +--------+ + + + [...] | | | | | [place] | | | | | | [address] | | | | | | | | +--------+---------+ + + + documented as of this encounter Visit Diagnoses Not on filedocumented in this encounter"
--- OUTSIDE RECORDS SUMMARY | ~2020-04-01 | XMS | Encounter Summary ---
Demographics + + + | Address | [address] | | | [place] [address] | + + + | Home Phone | | + + + | Preferred Language | Unknown | + + + | Marital Status | | + + + | Anglican Affiliation | Unknown | + + + | Race | Unknown | + + + | Ethnic Group | Unknown | + + + Author + + + | Author | [facility] | | | and [place] | + + + | Organization | [facility] | | [...] Team Providers + +------+ + | Care Data Management Name | Role | Phone | + +------+ + | Antonio Nolasco MD | PCP | | + +------+ + Encounter Details +--------+--------+ + + + | Date | Type | Department | Care Team | Description | +--------+--------+ + + + | 02/09/ | Intake | [facility] | | N/A | | 2019 | | [place] [address] | | | | | | [address] | | | | | | [place], [place] | | | | | | [address] | | | | | | [phone] | | | +--------+--------+ + + + [...] [place] | | | | | | [address] | | | | | | | | +--------+---------+ + + + documented as of this encounter Visit Diagnoses Not on filedocumented in this encounter"
--- OUTSIDE RECORDS SUMMARY | ~2020-04-01 | XMS | Encounter Summary ---
Demographics + + + | Address | [address] | | | [place] [address] | + + + | Home Phone | | + + + | Preferred Language | Unknown | + + + | Marital Status | | + + + | Alevism Affiliation | Unknown | + + + [...] Team Providers + +------+ + | Care Dry Wall Installer Name | Role | Phone | + +------+ + | Antonio Nolasco MD | PCP | | + +------+ + Encounter Details +--------+ + + + + | Date | Type | Department | Care Team | Description | +--------+ + + + + | 02/13/ | Telephone | [facility] | Jigna Metcalf RN | | | 2020 | | CENTER | | | | | | [facility] | | | | | | [facility] | | | | | | [address] | | | | | | [place] | | | | | | [address] | | | | | | [phone] | | | +--------+ + + + [...] [place] | | | | | | [address] | | | | | | | | +--------+---------+ + + + documented as of this encounter Visit Diagnoses Not on filedocumented in this encounter"
[~2020-04-01 14:13] MED LIST changes: +ENOXAPARIN80 MG/0.8 SUB-Q; +LISINOPRIL40 MG PO; +WARFARIN SODIUM5 MG PO
--- NOTE | 2020-04-03 13:11 | EKG ---
[facility] [address] [place] [address] Signed Sinus rhythm with 1st degree AV block Otherwise normal ECG When compared with ECG of 10-FEB-2020 17:51, T wave inversion no longer evident in Anterior leads Confirmed by NUPUR CHA MD ([id number]) on 04/03/2020 1:10:51 PM Electronically Signed By: NUPUR CHA MD 04/03/20 1311 PATIENT NAME: OLIVIA MANTILLA Electrocardiogram DATE OF : 34 PHYSICIAN: NUPUR CHA MD REPORT #: [id number] REPORT IS CONFIDENTIAL AND NOT TO BE RELEASED WITHOUT AUTHORIZATION
[2020-04-04] MEDS ORDERED: AUGMENTIN 875-1 EACH PO (10:21)
== END 2020-04-04 13:10 | disposition home or self-care (01) | DRG 872 ==
LOC: ED 14:13 → MS 16:35 → CCU 16:35 → MS 04-02 10:29
PROVIDERS: ADMIT Internal Medicine
DX: A40.0 Sepsis due to streptococcus, group A (principal); L03.113 Cellulitis of right upper limb; S50.811A Abrasion of right forearm, initial encounter; W55.03XA Scratched by cat, initial encounter; I10 Essential (primary) hypertension; Z86.711 Personal history of pulmonary embolism; Z79.01 Long term (current) use of anticoagulants; Z20.828 Contact with and (suspected) exposure to other viral communicable diseases; Z66 Do not resuscitate
CPT/HCPCS: 36415; 71045; 80048; 80053; 83605; 85007; 85025; 85032; 85610; 85730; 90715; 93005; 93010; 96365; 97165; 97535; 99284-25; J0696; J2543; J7121; U0002

== ENCOUNTER 2020-04-14 19:19 | Emergency (ER) | payer MEDICARE, OTHER ==
[~2020-04-14] VITALS: Ht 172.7 cm; Wt 90.3 kg
--- OUTSIDE RECORDS SUMMARY | ~2020-04-14 | XMS | Encounter Summary ---
Demographics + + + | Address | [address] | | | [place] [address] | + + + | Home Phone | | + + + | Preferred Language | Unknown | + + + | Marital Status | | + + + | Anabaptist Affiliation | Unknown | + + + | Race | Unknown | + + + | Ethnic Group | Unknown | + + + Author + + + | Author | [facility] | | | and [place] | + + + | Organization | [facility] | | | and [...] Team Providers + +------+ + | Care Floor Inspector Name | Role | Phone | + +------+ + | Antonio Nolasco MD | PCP | | + +------+ + Reason for Visit +--------+ + | Reason | Comments | +--------+ + | Other | SCREENED FOR APPT | +--------+ + Encounter Details +--------+ + + + + | Date | Type | Department | Care Team | Description | +--------+ + + + + | 04/09/ | Telephone | [facility] | Veronica Smith | Other (SCREENED FOR | | 2019 | | CARDIOLOGY [place] Vuong, Door Frame Assembler Machine | APPT) | | | | [address] | | | | | | [place], [place] | | | | | | [address] | | | | | | [phone] | | | +--------+ + + + [...] Description | +--------+---------+ + + + | 07/24/ | Office | Cardiology | Vicky Christianson | | | 2019 | Visit | | [address] | | | | | | [address] | | | | | | [place] [address] | | | | | | [phone] | | | | | | | | +--------+---------+ + + + documented as of this encounter Visit Diagnoses Not on filedocumented in this encounter"
--- OUTSIDE RECORDS SUMMARY | ~2020-04-14 | XMS | Encounter Summary ---
Demographics + + + | Address | [address] | | | [place] [address] | + + + | Home Phone | | + + + | Preferred Language | Unknown | + + + | Marital Status | | + + + | Rastafari Affiliation | Unknown | + + + | Race | Unknown | + + + | Ethnic Group | Unknown | + + + Author + + + | Author | [facility] | | | and [place] | + + + | Organization | [facility] | | | and [...] Team Providers + +------+ + | Care Cycle Consultant Name | Role | Phone | + +------+ + | Antonio Nolasco MD | PCP | | + +------+ + Reason for Referral Diagnostic/Screening (Routine) + +--------+ + + + + | Status | Reason | Specialty | Diagnoses / | Referred By | Referred To | | | | | Procedures | Contact | Contact | + +--------+ + + + + | Pending | | Radiology | Diagnoses | Jose, | | | Review | | | Pulmonary | DO Giselle | | | | | | embolism, | [address] | | | | | | unspecified | [address] | | | | | | chronicity, | [place] | | | | | | unspecified | [place] | | | | | | pulmonary | [address] | | | | | | embolism | Phone: | | | | | | type, | [phone] | | | | | | unspecified | Fax: | | | | | | whether | [phone] | | | | | | acute cor | | | | | | | pulmonale | | | | | | | present | | | | | | | (HCC) | | | | | | | Procedures | | | | | | | ECHO | | | | | | | Complete | | | + +--------+ + + + + Diagnostic/Screening (Routine) +--------+--------+ + + + + | Status | Reason | Specialty | Diagnoses / | Referred By | Referred To | | | | | Procedures | Contact | Contact | +--------+--------+ + + + + | Closed | | Radiology | Diagnoses | Garcia, | | | | | | | DO Giselle | | | | | | Cerebrovascu | [address] | | | | | | [address] accident | [address] | | | | | | (CVA), | [place] | | | | | | unspecified | [place] | | | | | | mechanism | [id number] | | | | | | ([facility]) | Phone: | | | | | | Procedures | [phone] | | | | | | VAS Carotid | Fax: | | | | | | Duplex | [phone] | | | | | | Bilateral | | | +--------+--------+ + + + + Reason for Visit + + + | Reason | Comments | + + + | New Patient | NEW PATIENT | + + + Evaluate & Treat (Routine) + +--------+ + + + + | Status | Reason | Specialty | Diagnoses / | Referred By | Referred To | | | | | Procedures | Contact | Contact | + +--------+ + + + + | Authorized | | Cardiology | Diagnoses | Gaurav, | Amrit, | | | | | | Antonio Henderson, | MD Simona | | | | | Bradycardia, | MD [address] | [address] | | | | | unspecified | [address] | [place] | | | | | Procedures | [place], | [place], [place] | | | | | Consult | [place] [address] | [address] Phone: | | | | | | Phone: | [phone] | | | | | | [phone] | Fax: | | | | | | Fax: | [phone] | | | | | | [phone] | | + +--------+ + + + + Encounter Details +--------+---------+ + + + | Date | Type | Department | Care Team | Description | +--------+---------+ + + + | 04/10/ | Office | [facility] | Giselle Garcia DO | 1st degree AV block | | 2020 | Visit | CARDIOLOGY [place] | [address] | (Primary Dx); | | | | [address] | [address] [place], [place] | Bradycardia; | | | | [address] | [address] | Cerebrovascular | | | | [place], [place] | | accident (CVA), | | | | [address] | | unspecified | | | | [phone] | | mechanism ([facility]); | | | | | | Pulmonary embolism, | | | | | | unspecified | | | | | | chronicity, | | | | | | unspecified | | | | | | pulmonary embolism | | | | | | type, unspecified | | | | | | whether acute cor | | | | | | pulmonale present | | | | | | ([facility]) | +--------+---------+ + + + Social History + +-------+ [...] + + documented as of this encounter Last Filed Vital Signs + + + + + | Vital Sign | Reading | Time Taken | Comments | + + + + + | Blood Pressure | 140/76 | 04/10/2020 1:02 PM | | | | | PDT | | + + + + + | Pulse | 92 | 04/10/2020 1:02 PM | | | | | PDT | | + + + + + | Temperature | - | - | | + + + + + | Respiratory Rate | - | - | | + + + + + | Oxygen Saturation | 97% | 04/10/2020 1:02 PM | | | | | PDT | | + + + + + | Inhaled Oxygen | - | - | | | Concentration | | | | + + + + + | Weight | 91.2 kg (201 lb) | 04/10/2020 1:02 PM | | | | | PDT | | + + + + + | Height | 172.7 cm (5' 8") | 04/10/2020 1:02 PM | | | | | PDT | | + + + + + | Body Mass Index | 30.56 | 04/10/2020 1:02 PM | | | | | PDT | | + + + + + documented in this encounter Progress Notes Giselle Garcia DO - 04/10/2020 1:00 PM PDT [facility] Cardiology Cardiology Consult Note Reason for Consultation: bradycardia Requesting Physician: History Obtained From: patient HISTORY OF PRESENT ILLNESS: Cardiac Problem List HTN HLD CVA- minor, 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 He was found to be bradycardic on physical exam and underwen t a Zio patch monitor on 12/03/2019. His Zio patch monitor demonstrated an average heart ra te of 56 beats per minute in sinus rhythm with a heart rate range of 34-106 beats per minute . His low heart rates in the 30s and 40s primarily occurred during sleeping hours. There were some short asymptomatic episodes of paroxysmal SVT, the longest of which was 27 beats. The patient denies any episodes of lightheadedness or dizziness. He denies any episodes of syncope or presyncope. Recently, he was diagnosed with an acute saddle pulmonary embolus o n 02/10/2020. Preceding this, he was at home with upper respiratory infection and shortness of breath. He did call in to urgent care and it was felt that these symptoms were likely related to the COVID virus; however, because he was not significantly symptomatic, he was to ld to stay home. After this, is whenever he developed his pulmonary embolus. During this e pisode. He did have an episode of syncope. He was taken to [facility] where he underwent a pulmonary artery catheter placement with IV thrombolytics. He was discharged on Coumadin. Since being discharged, he denies any chest pain or shortness of breath. He denies any episodes of syncope or presyncope since discharge. He denies any palpitations. He denies any lower extremity swelling, orthopnea, PND. ROS Constitutional: Negative for fatigue. HENT: Negative for nosebleeds. Eyes: Negative for visual disturbance. Respiratory: Negative for cough and shortness of breath. Cardiovascular: see HPI Gastrointestinal: Negative for nausea, vomiting, abdominal pain and blood in stool. Genitourinary: Negative for hematuria or dysuria. Musculoskeletal: Negative for myalgias, back pain and arthralgias. Skin: Negative for color change. Neurological: Negative for dizziness, syncope and numbness. Hematological: Does not bruise/bleed easily. Psychiatric/Behavioral: The patient is not nervous/anxious. 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 ibuprofen (ADVIL) 200 mg tablet every 6 hours. warfarin (COUMADIN) 5 mg tablet Take 5 mg by mouth Daily. No facility-administered encounter medications on file as of 04/10/2020. Allergies No Known Allergies FAMILY HISTORY History reviewed. No pertinent family history. SOCIAL HISTORY Social History Socioeconomic History Marital status: Spouse name: Not on file Number of children: Not on file Years of education: Not on file Highest education level: Not on file Occupational History Not on file Social Needs Financial resource strain: Not on file Food insecurity: Worry: Not on file Inability: Not on file Transportation needs: Medical: Not on file Non-medical: Not on file Tobacco Use Smoking status: Never Smoker Smokeless tobacco: Never Used Substance and Sexual Activity Alcohol use: Yes Comment: 1 shot a day Drug use: Not Currently Sexual activity: Not on file Lifestyle Physical activity: Days per week: Not on file Minutes per session: Not on file Stress: Not on file Relationships Social connections: Talks on phone: Not on file Gets together: Not on file Attends voodoo service: Not on file Active member of club or organization: Not on file Attends meetings of clubs or organizations: Not on file Relationship status: Not on file Intimate partner violence: Fear of current or ex partner: Not on file Emotionally abused: Not on file Physically abused: Not on file Forced sexual activity: Not on file Other Topics Concern Not on file Social History Narrative Not on file PHYSICAL EXAM Vital Signs: BP 140/76 | Pulse 92 | Ht 1.727 m (5' 8") | Wt 91.2 kg (201 lb) | SpO2 97% | BMI 30.56 kg/m GENERAL: Well developed, well nourished, in no distress. Appears approximately stated age . HEENT: Normocephalic, atraumatic. EYES: PERRL, sclerae anicteric, no xanthelsasmas NECK: No JVD, lymphadenopathy, thyromegaly, bruits. Carotid pulses are 2+ bilaterally LUNGS: Clear bilaterally, with no rales, rhonchi or wheezing noted, respirations unlabored HEART: Nondisplaced PMI, regular rate and rhythm, S1, S2 normal. No murmurs, rubs or gall ops noted. ABDOMEN: Soft, nontender, no organomegaly, masses or bruits. Bowel sounds are normal in a ll 4 quadrants. EXTREMITIES: No edema. Radial pulses 2+ bilaterally. DP and PT pulses are 2+ bilaterally. SKIN: Warm and dry, capillary refill is normal, no lesions. NEUROLOGIC: Awake, alert and oriented x 3. No focal motor deficits. PSYCHIATRIC: Appropriate, affect appears normal DATA Lab Results Component Value Date WBC 6.43 02/12/2020 HGB 12.9 (L) 02/12/2020 HCT 39.9 02/12/2020 PLT 139 (L) 02/12/2020 Lab Results Component Value Date INR 1.1 02/12/2020 PTT 70 (H) 02/12/2020 Lab Results Component Value Date NA 140 02/12/2020 K 3.9 02/12/2020 CL 108 02/12/2020 CO2 25 02/12/2020 BUN 19 02/12/2020 CREA 1.05 02/12/2020 MG 2.0 02/12/2020 No results found for: CHOL, TRIG, HDL, LDL, TSH EKG: Last Echo: Last stress test: Last cath: Carotid US: AAA screening: Lower extremity US: OTHERS: Zio Patch 12/03/2019 Predominant rhythm is sinus bradycardia with an average heart rate of 56 bpm, heart rate ra nges 106 to 34 bpm. Sinus bradycardia in the 30s to 40s was primarily during sleeping hours . He also had short paroxysms of supraventricular tachycardia, the longest of which was 27 beats. ASSESSMENT & PLAN 1. Sinus bradycardia 2. HTN 3. HLD 4. 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 Acute saddle PE 02/10/20 6. CKD 7. History Prostate CA 8. History Bladder CA -The patient is a 89-year-old male who presents to the cardiology office for initial consul tation regarding sinus bradycardia. He recently wore an ambulatory monitor which demonstrat ed sinus rhythm, he was noted to have high heart rates that dipped into the 30s to 40s at [facility]. He denies any symptoms of bradycardia arrhythmias. He was previously offered screenin g for obstructive sleep apnea but refused, we again discussed a referral for sleep apnea [facility] and the patient is not interested. He recently had a hospitalization for an acute sa ddle pulmonary embolus which was thought to be provoked due to possible COVID-19 infection. He has been tolerating anticoagulation well. -Continue warfarin for anticoagulation, would recommend a 6-month course -Obtain a complete echocardiogram -Obtain bilateral carotid ultrasounds -Follow-up in 3 months with Vicky Christianson Thank you for allowing me to participate in the care of this patient. Primary Care Physician: MD Giselle Titus DO 04/10/2020 documented in this enco unter Plan of Treatment +--------+---------+ + + + | Date | Type | Specialty | Care Team | Description | +--------+---------+ + + + | 07/24/ | Office | Cardiology | Vicky Christianson | | | 2019 | Visit | | [address] | | | | | | [address] | | | | | | [place] [address] | | | | | | [phone] | | | | | | | | +--------+---------+ + + + + + +--------+ + + | Name | Type | Priori | Associated Diagnoses | Order Schedule | | | | ty | | | + + +--------+ + + | VAS Carotid Duplex | Imaging | Routin | Cerebrovascular | Expected: | | Bilateral | | e | accident (CVA), | 04/10/2020, Expires: | | | | | unspecified | 04/10/2021 | | | | | mechanism (HCC) | | + + +--------+ + + | ECHO Complete | Echocardiog | Routin | Pulmonary | Expected: | | | shree | e | embolism, | 04/17/2020, Expires: | | | | | unspecified | 04/10/2021 | | | | | chronicity, | | | | | | unspecified | | | | | | pulmonary embolism | | | | | | type, unspecified | | | | | | whether acute cor | | | | | | pulmonale present | | | | | | (HCC) | | + + +--------+ + + documented as of this encounter Procedures + +--------+ + + + | Procedure Name | Priori | Date/Time | Associated Diagnosis | Comments | | | ty | | | | + +--------+ + + + | ECG 12 LEAD | Routin | 04/10/2020 | 1st degree AV | Results for this | | | e | 1:08 PM | block Bradycardia | procedure are in the | | | | PDT | | results section. | + +--------+ + + + documented in this encounter Results ECG 12 lead (04/10/2020 1:08 PM PDT) + + + + + + | Component | Value | Ref Range | Performed | Pathologist | | | | | At | Signature | + + + + + + | VENTRICULAR | 91 | BPM | [facility] | | | RATE EKG | | | | | + + + + + + | ATRIAL RATE | 91 | BPM | [facility] | | + + + + + + | P-R | 228 | ms | [facility] | | | INTERVAL | | | | | + + + + + + | QRS | 76 | ms | [facility] | | | DURATION | | | | | + + + + + + | Q-T | 376 | ms | [facility] | | | INTERVAL | | | | | + + + + + + | Q-T | 462 | ms | [facility] | | | INTERVAL | | | | | | (CORRECTED) | | | | | + + + + + + | P WAVE AXIS | 70 | degrees | [facility] | | + + + + + + | QRS AXIS | 9 | degrees | [facility] | | + + + + + + | T AXIS | 67 | degrees | [facility] | | + + + + + + | INTERPRETAT | Sinus rhythm with 1st | | [facility] | | | ION TEXT | degree A-V | | | | | | blockOtherwise normal | | | | | | ECGWhen compared with | | | | | | ECG of 10-FEB-2020 | | | | | | 22:19,No significant | | | | | | change was | | | | | | foundConfirmed by JOSE | | | | | | IGSELLE BUNDY ([id number]) on | | | | | | 04/14/2020 6:51:01 AM | | | | + + + + + + + + | Specimen | + + | | + + + + + | Narrative | Performed At | + + + | | | + + + + +---------+ + + | Performing | Address | City/State/Zipcode | Phone Number | | Organization | | | | + +---------+ + + | [facility] | | | | + +---------+ + + documented in this encounter Visit Diagnoses + + | Diagnosis | + + | 1st degree AV block - Primary First degree atrioventricular block | + + | Bradycardia Other specified cardiac dysrhythmias | + + | Cerebrovascular accident (CVA), unspecified mechanism (HCC) | + + | Pulmonary embolism, unspecified chronicity, unspecified pulmonary embolism type, | | unspecified whether acute cor pulmonale present (HCC) | + + documented in this encounter
--- OUTSIDE RECORDS SUMMARY | ~2020-04-14 | XMS | Clinical Summary ---
Demographics + + + | Address | [address] | | | [place] [address] | + + + | Home Phone | | + + + | Preferred Language | Unknown | + + + | Marital Status | | + + + | Lutheran Affiliation | Unknown | + + + | Race | Unknown | + + + | Ethnic Group | Unknown | + + + Author + + + | Author | [facility] | | | and [place] | + + + | Organization | [facility] | | | [...] Team Providers + +------+ + | Care Cyberathlete Name | Role | Phone | + +------+ + | Antonio Nolasco MD | PCP | | + +------+ + Allergies No Known Allergies Medications + + + +---------+------+------+-------+ | Medication | Sig | Dispensed | Refills | Star | End | Statu | | | | | | t | Date | s | | | | | | Date | | | + + + +---------+------+------+-------+ | | TAKE 1 TABLET BY | | 0 | 05/2 | | Activ | | amoxicillin-clavulan | MOUTH TWICE DAILY | | | 07/27 | | e | | ate (AUGMENTIN) | WITH FOOD FOR SKIN | | | 20 | | | | 875-125 mg per | INFECTION | | | | | | | tablet | | | | | | | + + + +---------+------+------+-------+ | warfarin | Take 5 mg by mouth | | 0 | 04/2 | | Activ | | (COUMADIN) 5 mg | Daily. | | | 06/26 | | e | | tablet | | | | 20 | | | + + + +---------+------+------+-------+ | escitalopram | Take 20 mg by mouth | | 0 | 10/2 | | Activ | | (LEXAPRO) 20 mg | Daily. | | | 02/24 | | e | | tablet | | | | 19 | | | + + + +---------+------+------+-------+ | ibuprofen (ADVIL) | every 6 hours. | | 0 | | | Activ | | 200 mg tablet | | | | | | e | + + + +---------+------+------+-------+ Active Problems + + + | Problem | Noted Date | + + + | Bladder cancer | 02/11/2020 | + + + | Essential hypertension | 02/10/2020 | + + + | Acute respiratory failure with hypoxia | 02/10/2020 | + + + | Syncope | 02/10/2020 | + + + | Acute saddle pulmonary embolism with acute cor pulmonale | 02/10/2020 | + + + Encounters +--------+ + + + + | Date | Type | Specialty | Care Team | Description | +--------+ + + + + | 04/10/ | Office | Cardiology | Giselle Garcia DO | 1st degree AV block | | 2019 | Visit | | | (Primary Dx); | | | | | | Bradycardia; | | | | | | Cerebrovascular | | | | | | accident (CVA), | | | | | | unspecified | | | | | | mechanism (HCC); | | | | | | Pulmonary [...] | | | | | (HCC) | +--------+ + + + + | 04/09/ | Telephone | Cardiology | Veronica Smith | Phoebe (SCREENED FOR | 2019 | | | D, Health Coach | APPT) | +--------+ + + + + | 02/24/ | Telephone | Anticoagulation | Imani Nevarez, | | 2019 | | | HAND PACKER | | +--------+ + + + + | 02/13/ | Telephone | Anticoagulation | Jigna Metcalf RN | | | 2019 | | | | | +--------+ + + + + | 02/09/ | Hospital | Internal Medicine | Solomon Santos DO | Acute pulmonary | | 2019 - | Encounter | | Epi Martinez | embolism, | | | | | MD Henri Latham, | unspecified | | 02/11/ | | | Eder Miller MD | pulmonary embolism | | 2019 | | | Elizabeth Turcios, | type, unspecified | | | | | MD | whether acute cor | | | | | | pulmonale present | | | | | | ([facility]) (Primary Dx); | | | | | | Syncope, unspecified | | | | | | syncope type | +--------+ + + + + | 02/09/ | Intake | | | N/A | | 2020 | | | | | +--------+ + + + + from Last 3 Months Family History + +------+ + + | Relation | Name | Status | Comments | + +------+ + + | Father | | | | + +------+ + + | Mother | | | | + +------+ + + Social History + +-------+ +--------+------+ [...] recent travel history available. | + + Last Filed Vital Signs + + + [...] + + + + | Temperature | 36.3 C (97.4 F) | 02/12/2020 11:42 AM | | | | | PDT | | + + + + + | Respiratory Rate | 16 | 02/12/2020 11:42 AM | | | | | PDT | [...] | | + + + + + Plan of Treatment +--------+---------+ + + + | Date | Type | Specialty | Care Team | Description | +--------+---------+ + + + | 07/24/ | Office | Cardiology | Vicky Christianson | | | 2020 | Visit | | [address] | | | | | | [address] | | | | | | [place] [address] | | | | | | [phone] | | | | | | | | +--------+---------+ + + + + + + + + | Health Maintenance | Due Date | Last Done | Comments | + + + + + | Vaccine: | | | | | Dtap/Tdap/Td (1 - | 3 | | | | Tdap) | | | | + + + + + | Vaccine: Zoster (1 | | | | | of 2) | 2 | | | + + + + + | Vaccine: | | | | | Pneumococcal 65+ (1 | 7 | | | | of 2 - PCV13) | | | | + + + + + | Adult Annual | | | | | Wellness Visit | 0 | | | + + + + + | Vaccine: Influenza | | | | | (Season Ended) | 0 | | | + + + + + Procedures + +--------+ + + + | [...] section. | + +--------+ + + + | PTT | STAT | 02/12/2020 | | Results for this | | | | 8:06 AM | | procedure are in the | | | | PDT | | results section. | + +--------+ + + + | PROTIME INR | Routin | 02/12/2020 | | Results for this | | | e | 4:02 AM | | procedure are in the | | | | PDT | | results section. | + +--------+ + + + | PHOSPHORUS | SHADI | 02/12/2020 | | Results for this | | | | 4:02 AM | | procedure are in the | | | | PDT | | results section. | + +--------+ + + + | MAGNESIUM | SHADI | 02/12/2020 | | Results for this | | | | 4:02 AM | | procedure are in the | | | | PDT | | results section. | + +--------+ + + + | CBC WITH | SHADI | 02/12/2020 | | Results for this | | DIFFERENTIAL | | 4:02 AM | | procedure are in the | | | | PDT | | results section. | + +--------+ + + + | BASIC METABOLIC | SHADI | 02/12/2020 | | Results for this | | PANEL | | 4:02 AM | | procedure are in the | | | | PDT | | results section. | + +--------+ + + + | PTT | STAT | 02/12/2020 | | Results for this | | | | 12:58 AM | | procedure are in the | | | | PDT | | results section. | + +--------+ + + + | TROPONIN I | STAT | 02/11/2020 | | Results for this | | | | 7:50 PM | | procedure are in the | | | | PDT | | results section. | + +--------+ + + + | PTT | Routin | 02/11/2020 | | Results for this | | | e | 5:05 PM | | procedure are in the | | | | PDT | | results section. | + +--------+ + + + | FIBRINOGEN | STAT | 02/11/2020 | | Results for this | | | | 12:35 PM | | procedure are in the | | | | PDT | | results section. | + +--------+ + + + | TROPONIN I | STAT | 02/11/2020 | | Results for this | | | | 12:32 PM | | procedure are in the | | | | PDT | | results section. | + +--------+ + + + | PTT | STAT | 02/11/2020 | | Results for this | | | | 8:02 AM | | procedure are in the | | | | PDT | | results section. | + +--------+ + + + | PROTIME INR | STAT | 02/11/2020 | | Results for this | | | | 8:02 AM | | procedure are in the | | | | PDT | | results section. | + +--------+ + + + | CBC WITH | Add-On | 02/11/2020 | | Results for this | | DIFFERENTIAL | | 8:02 AM | | procedure are in the | | | | PDT | | results section. | + +--------+ + + + | FIBRINOGEN | STAT | 02/11/2020 | | Results for this | | | | 8:02 AM | | procedure are in the | | | | PDT | | results section. | + +--------+ + + + | TROPONIN I | STAT | 02/11/2020 | | Results for this | | | | 4:02 AM | | procedure are in the | | | | PDT | | results section. | + +--------+ + + + | PHOSPHORUS | SHADI | 02/11/2020 | | Results for this | | | | 4:02 AM | | procedure are in the | | | | PDT | | results section. | + +--------+ + + + | MAGNESIUM | SHADI | 02/11/2020 | | Results for this | | | | 4:02 AM | | procedure are in the | | | | PDT | | results section. | + +--------+ + + + | BASIC METABOLIC | SHADI | 02/11/2020 | | Results for this | | PANEL | | 4:02 AM | | procedure are in the | | | | PDT | | results section. | + +--------+ + + + | MRSA NAAT | Routin | 02/11/2020 | | Results for this | | | e | 3:13 AM | | procedure are in the | | | | PDT | | results section. | + +--------+ + + + | FIBRINOGEN | STAT | 02/11/2020 | | Results for this | | | | 1:30 AM | | procedure are in the | | | | PDT | | results section. | + +--------+ + + + | POC GLUCOSE (NON | Routin | 02/11/2020 | | Results for this | | ORD) | e | 1:03 AM | | procedure are in the | | | | PDT | | results section. | + +--------+ + + + | IR ANGIOGRAM | SHADI | 02/11/2020 | | Results for this | | PULMONARY BILATERAL | | 12:44 AM | | procedure are in the | | | | PDT | | results section. | + +--------+ + + + | PTT | STAT | 02/10/2020 | | Results for this | | | | 10:34 PM | | procedure are in the | | | | PDT | | results section. | + +--------+ + + + | PROTIME INR | STAT | 02/10/2020 | | Results for this | | | | 10:34 PM | | procedure are in the | | | | PDT | | results section. | + +--------+ + + + | CBC NO DIFFERENTIAL | STAT | 02/10/2020 | | Results for this | | | | 10:34 PM | | procedure are in the | | | | PDT | | results section. | + +--------+ + + + | TROPONIN I | Add-On | 02/10/2020 | | Results for this | | | | 10:20 PM | | procedure are in the | | | | PDT | | results section. | + +--------+ + + + | ECG 12 LEAD | Routin | 02/10/2020 | | Results for this | | | e | 10:19 PM | | procedure are in the | | | | PDT | | results section. | + +--------+ + + + | ED INFORMATION | Routin | 02/10/2020 | | | | EXCHANGE | e | 10:02 PM | | | | | | PDT | | | + +--------+ + + + +---+--------+ | | | | | Proced | | | ure | | | Note - | | | Beto, | | | Lab In | | | | | | Hlseve | | | n - | | | 02/09/ | | | 2020 | | | 10:03 | | | PM PDT | | | | | | Format | | | ting | | | of | | | this | | | note | | | might | | | be | | | differ | | | ent | | | from | | | the | | | origin | | | al.COL | | | LECTIV | | | E?NOTI | | | FICATI | | | ON?04/ | | | | | | 0 | | | 21:58? | | | JOHNSO | | | N, | | | FORRES | | | T | | | R?MRN: | | | | | | [id number] | | | [id number] | | | riteri | | | a Met | | | 2 in | | | 2Secur | | | ity | | | and | | | Safety | | | No | | | recent | | | | | | Securi | | | ty | | | Events | | | | | | curren | | | tly on | | | | | | fileED | | | Care | | | Guidel | | | inesTh | | | ere | | | are | | | curren | | | tly no | | | ED | | | Care | | | Guidel | | | nash | | | for | | | this | | | patien | | | t. | | | Please | | | check | | | your | | | facili | | | ty's | | | medica | | | l | | | record | | | s | | | system | | | .Presc | | | riptio | | | n Drug | | | | | | Report | | | (12 | | | Mo.)PD | | | MP | | | query | | | found | | | no | | | report | | | .E.D. | | | Visit | | | Count | | | (12 | | | mo.)Fa | | | cility | | | | | | Visits | | | Low | | | Acuity | | | | | | [facility] | | | | | | [facility] | | | al | | | Medica | | | l | | | Center | | | 1 0 | | | [facility] [place] [facility] | [facility] y | | | Hospit | | | al 1 0 | | | Total | | | 2 0 | | | Note: | | | Visits | | | | | | indica | | | te | | | total | | | known | | | visits | | | . | | | Medica | | | id Low | | | | | | Acuity | | | Dx | | | are | | | the | | | number | | | of | | | primar | | | y | | | diagno | | | ses on | | | the | | | Medica | | | id's | | | Low | | | Acuity | | | dx | | | list. | | | | | | Recent | | | | | | Emerge | | | ncy | | | Depart | | | ment | | | Visit | | | [facility] | | | yDate | | | Facili | | | ty | | | City | | | State | | | Type | | | Diagno | | | ses or | | | Chief | | | | | | Compla | | | int | | | Apr 5, | | | 2020 | | | [facility] | | | | | | [facility] | | | al | | | [facility] | | | [place] | | | [place] | | | Emerge | | | ncy | | | | | | Weakne | | | ss | | | Cough | | | Apr | | | 5, | | | 2020 | | | [facility] [place] | | | [facility] | | | [place] | | | [place] | | | Emerge | | | ncy | | | Chief | | | Compla | | | int: | | | SOB | | | Recent | | | | | | Inpati | | | ent | | | Visit | | | Summar | | | yNo | | | record | | | ed | | | inpati | | | ent | | | visits | | | . Care | | | | | | TeamTh | | | ere is | | | not a | | | care | | | team | | | on | | | record | | | at | | | this | | | time. | | | [facility] | | | tive | | | Portal | | | This | | | patien | | | t has | | | regist | | | ered | | | at the | | | | | | [facility] | | | | | | Region | | | al | | | Medica | | | l | | | Center | | | | | | Emerge | | | ncy | | | Depart | | | ment | | | For | | | more | | | inform | | | ation | | | visit: | | | | | | https: | | | //secu | | | re.col | | | lectiv | | | emedic | | | al.com | | | /notif | | | [id number] | | | [id number] | | | [id number] | | | [id number] | | | [phone] | | | [id number] | | | df | | | PLEASE | | | NOTE: | | | 1. | | | Any | | | care | | | recomm | | | endati | | | ons | | | and | | | other | | | clinic | | | al | | | inform | | | ation | | | are | | | provid | | | ed as | | | guidel | | | nash | | | or for | | | | | | histor | | | ical | | | purpos | | | es | | | only, | | | and | | | provid | | | ers | | | should | | | | | | exerci | | | se | | | their | | | own | | | clinic | | | al | | | judgme | | | nt | | | when | | | provid | | | ing | | | care. | | | 2. | | | You | | | may | | | only | | | use | | | this | | | inform | | | ation | | | for | | | purpos | | | es of | | | treatm | | | ent, | | | paymen | | | t or | | | health | | | care | | | operat | | | ions | | | activi | | | ties, | | | and | | | subjec | | | t to | | | the | | | limita | | | tions | | | of | | | applic | | | able | | | [facility] | | | tive | | | Polici | | | es. | | | 3. | | | You | | | should | | | | | | consul | | | t | | | direct | | | ly | | | with | | | the | | | organi | | | zation | | | that | | | provid | | | ed a | | | care | | | guidel | | | ine or | | | other | | | | | | clinic | | | al | | | histor | | | y with | | | any | | | questi | | | ons | | | about | | | additi | | | onal | | | inform | | | ation | | | or | | | accura | | | cy or | | | comple | | | teness | | | of | | | inform | | | ation | | | provid | | | ed.? | | | 2020 | | | [facility] | | | tive | | | Medica | | | l | | | Techn[employer] | | | logies | | | , Inc[employer] | | | - | | | www.co | | | llecti | | | vemedi | | | parth.co | | | m | +---+--------+ from Last 3 Months Results ECG 12 lead (04/10/2020 1:08 PM PDT)Only the most recent of 2 results within the time lei od is included. + + + + + + | [...] | | | | | foundConfirmed by WILNER | | | | | | GISELLE BUNDY ([id number]) on | | | | | | [...] | | | + +---------+ + + PTT (02/12/2020 8:06 AM PDT)Only the most recent of 5 results within the time period is in cluded. + + + + + + | Component | Value | Ref Range | Performed | Pathologist | | | | | At | Signature | + + + + + + | PTT | 70 (H)Comment: Testing | 23 - 32 seconds | [facility] | | | | performed at [facility];[address] | | LABORATORY | | | | [address];[place], [place] | | | | | | [address] | | | | + + + + + + + + | Specimen | + + | Blood | + + + + + + + | Performing | Address | City/State/Zipcode | Phone Number | | Organization | | | | + + + + + | [facility] | [address] | [place] [address] | [phone] | + + + + + Protime INR (02/12/2020 4:02 AM PDT)Only the most recent of 3 results within the time lei od is included. + + + + + + | Component | Value | Ref Range | Performed | Pathologist | | | | | At | Signature | + + + + + + | INR | 1.1Comment: REFERENCE | | [facility] | | | | RANGE:0.9 - 1.2 | | LABORATORY | | | | NON-ANTICOAGULATED2.0 | | | | | | - 3.0 ALL OTHER | | | | | | THERAPEUTIC | | | | | | INDICATIONS2.5 - 3.5 | | | | | | MECHANICAL HEART VALVES, | | | | | | RECURRENT OR SYSTEMIC | | | | | | EMBOLISMTesting | | | | | | performed at [facility] | | | | | | [address];[place], [place] | | | | | | [address] | | | | + + + + + + + + | Specimen | + + | Blood | + + + + + + + | Performing | Address | City/State/Zipcode | Phone Number | | Organization | | | | + + + + + | [facility] | [address] | [place] [address] | [phone] | + + + + + CBC with Differential (02/12/2020 4:02 AM PDT)Only the most recent of 2 results within the time period is included. + + + + + + | Component | Value | Ref Range | Performed | Pathologist | | | | | At | Signature | + + + + + + | WBC | 6.43 | 3.80 - 11.00 | [facility] | | | | | K/uL | LABORATORY | | + + + + + + | RBC | 4.59 | 4.20 - 5.70 | [facility] | | | | | M/uL | LABORATORY | | + + + + + + | Hemoglobin | 12.9 (L) | 13.2 - 17.0 | [facility] | | | | | g/dL | LABORATORY | | + + + + + + | Hematocrit | 39.9 | 39.0 - 50.0 % | [facility] | | | | | | LABORATORY | | + + + + + + | MCV | 86.9 | 80.0 - 100.0 fl | [facility] | | | | | | LABORATORY | | + + + + + + | MCH | 28.1 | 27.0 - 34.0 pg | [facility] | | | | | | LABORATORY | | + + + + + + | MCHC | 32.3 | 32.0 - 35.5 | [facility] | | | | | g/dL | LABORATORY | | + + + + + + | RDW-SD | 44.2 | 37 - 53 fl | [facility] | | | | | | LABORATORY | | + + + + + + | Platelet | 139 (L) | 150 - 400 K/uL | [facility] | | | Count | | | LABORATORY | | + + + + + + | MPV | 10.0Comment: NO NORMAL | fl | [facility] | | | | RANGE ESTABLISHED | | LABORATORY | | + + + + + + | Diff Type | AUTOMATED | | [facility] | | | | | | LABORATORY | | + + + + + + | % nRBC | 0.0 | 0 /100WBC | [facility] | | | | | | LABORATORY | | + + + + + + | % | 66.50 | % | [facility] | | | Neutrophils | | | LABORATORY | | + + + + + + | IMMATURE | 0.60 | % | [facility] | | | GRANULOCYTE | | | LABORATORY | | + + + + + + | % | 21.30 | % | [facility] | | | Lymphocytes | | | LABORATORY | | + + + + + + | Monocyte % | 9.30 | % | [facility] | | | | | | LABORATORY | | + + + + + + | Eosinophils | 2.00 | % | [facility] | | | % | | | LABORATORY | | + + + + + + | Basophils % | 0.30 | % | [facility] | | | | | | LABORATORY | | + + + + + + | Neutrophils | 4.27 | 1.90 - 7.40 | [facility] | | | , Absolute | | K/uL | LABORATORY | | + + + + + + | IMMATURE | 0.04Comment: NOTE NEW | 0.00 - 0.07 | [facility] | | | GRANS AB | REFERENCE RANGE | K/uL | LABORATORY | | + + + + + + | Absolute | 1.37 | 1.00 - 3.90 | [facility] | | | Lymphocytes | | K/uL | LABORATORY | | + + + + + + | Absolute | 0.60 | 0.00 - 0.80 | [facility] | | | Monocytes | | K/uL | LABORATORY | | + + + + + + | Eosinophils | 0.13 | 0.00 - 0.50 | [facility] | | | , Absolute | | K/uL | LABORATORY | | + + + + + + | Basophils, | 0.02Comment: Testing | 0.00 - 0.10 | [facility] | | | Absolute | performed at [facility];[address] | [address] | LABORATORY | | | | [address];[place] | | | | | | [address] | | | | + + + + + + + + | Specimen | + + | Blood | + + + + + + + | Performing | Address | City/State/Zipcode | Phone Number | | Organization | | | | + + + + + | [facility] | [address] | [place] [address] | [phone] | + + + + + Phosphorus (02/12/2020 4:02 AM PDT)Only the most recent of 2 results within the time perio d is included. + + + + + + | Component | Value | Ref Range | Performed | Pathologist | | | | | At | Signature | + + + + + + | Phosphorus | 2.6Comment: Testing | 2.3 - 4.8 mg/dL | [facility] | | | | performed at [facility];[address] | | LABORATORY | | | | [facility];[place], [place] | | | | | | [address] | | | | + + + + + + + + | Specimen | + + | Blood | + + + + + + + | Performing | Address | City/State/Zipcode | Phone Number | | Organization | | | | + + + + + | [facility] | [address] | [place] [address] | [phone] | + + + + + Magnesium (02/12/2020 4:02 AM PDT)Only the most recent of 2 results within the time period is included. + + + + + + | Component | Value | Ref Range | Performed | Pathologist | | | | | At | Signature | + + + + + + | Magnesium | 2.0Comment: Testing | 1.7 - 2.4 mg/dL | [facility] | | | | performed at [facility];[address] | | LABORATORY | | | | [address];[place], [place] | | | | | | [address] | | | | + + + + + + + + | Specimen | + + | Blood | + + + + + + + | Performing | Address | City/State/Zipcode | Phone Number | | Organization | | | | + + + + + | [facility] | [address] [facility] | [place] [address] | [phone] | + + + + + Basic Metabolic Panel (02/12/2020 4:02 AM PDT)Only the most recent of 2 results within the time period is included. + + + + + + | Component | Value | Ref Range | Performed | Pathologist | | | | | At | Signature | + + + + + + | Na | 140 | 135 - 145 | [facility] | | | | | mmol/L | LABORATORY | | + + + + + + | K | 3.9 | 3.5 - 4.9 | [facility] | | | | | mmol/L | LABORATORY | | + + + + + + | Cl | 108 | 99 - 109 mmol/L | [facility] | | | | | | LABORATORY | | + + + + + + | CO2 | 25 | 23 - 32 mmol/L | [facility] | | | | | | LABORATORY | | + + + + + + | Anion Gap | 11 | 5 - 20 mmol/L | [facility] | | | | | | LABORATORY | | + + + + + + | Glucose | 112 (H) | 65 - 99 mg/dL | [facility] | | | | | | LABORATORY | | + + + + + + | BUN | 19 | 8 - 25 mg/dL | [facility] | | | | | | LABORATORY | | + + + + + + | Creatinine | 1.05 | 0.70 - 1.30 | [facility] | | | | | mg/dL | LABORATORY | | + + + + + + | BUN/Creatin | 18 | | [facility] | | | ine Ratio | | | LABORATORY | | + + + + + + | Calcium | 8.4 (L) | 8.5 - 10.5 | [facility] | | | | | mg/dL | LABORATORY | | + + + + + + | Estimated | >60Comment: GFR <60: | >60 | [facility] | | | GFR | CHRONIC KIDNEY DISEASE, | mL/min/1.73m2 | LABORATORY | | | | IF FOUND OVER A 3 MONTH | | | | | | PERIOD.GFR <15: KIDNEY | | | | | | FAILURE.FOR | | | | | | AMERICANS, MULTIPLY THE | | | | | | CALCULATED GFR BY | | | | | | 1.210.This eGFR is | | | | | | calculated using the | | | | | | MDRD IDMS traceable | | | | | | equation.Testing | | | | | | performed at [facility];[address] | | | | | | [facility];[place], [place] | | | | | | [address] | | | | + + + + + + + + | Specimen | + + | Blood | + + + + + + + | Performing | Address | City/State/Zipcode | Phone Number | | Organization | | | | + + + + + | [facility] | [address] | [place] [address] | [phone] | + + + + + Troponin I (02/11/2020 7:50 PM PDT)Only the most recent of 4 results within the time latisha conn is included. + + + + + + | Component | Value | Ref Range | Performed | Pathologist | | | | | At | Signature | + + + + + + | Troponin I | 0.256 (H)Comment: 0.04 | 0.00 - 0.04 | [facility] | | | | ng/mL or less | ng/mL | LABORATORY | | | | Negative, repeat | | | | | | testing in four to six | | | | | | hour ifclinically | | | | | | indicted0.05 to 0.77 | | | | | | ng/mL | | | | | | Suspicious for | | | | | | myocardial injury. | | | | | | Serial measurementsmay | | | | | | be necessary to confirm | | | | | | or exclude the diagnosis | | | | | | of acute | | | | | | coronarysyndrome. Repeat | | | | | | testing in four to six | | | | | | hours if indicated.0.78 | | | | | | or greater ng/mL | | | | | | Consistent with | | | | | | myocardial injury. | | | | | | Clinical andlaboratory | | | | | | correlation recommended. | | | | | | Testing performed at | | | | | | [facility];[address] [place] [address] | | | | | | Blvd;[place] [address] | | | | + + + + + + + + | Specimen | + + | Blood | + + + + + + + | Performing | Address | City/State/Zipcode | Phone Number | | Organization | | | | + + + + + | [facility] | [address] | [place] [address] | [phone] | + + + + + Fibrinogen (02/11/2020 12:35 PM PDT)Only the most recent of 3 results within the time perio d is included. + + + + + + | Component | Value | Ref Range | Performed | Pathologist | | | | | At | Signature | + + + + + + | Fibrinogen | 600 (H)Comment: Testing | 200 - 450 mg/dL | [facility] | | | | performed at [facility];[address] | | LABORATORY | | | | [address];[place] | | | | | | [id number] | | | | + + + + + + + + | Specimen | + + | Blood | + + + + + + + | Performing | Address | City/State/Zipcode | Phone Number | | Organization | | | | + + + + + | [facility] | [address] | [place] [address] | [phone] | + + + + + MRSA NAAT (02/11/2020 3:13 AM PDT) + + + + + + | Component | Value | Ref Range | Performed | Pathologist | | | | | At | Signature | + + + + + + | SOURCE: | [facility](NOSE) | | [facility] | | | | | | LABORATORY | | + + + + + + | Result | NEGATIVEComment: Testing | [facility] | [facility] | | | | performed at [facility] | | LABORATORY | | | | [address];[place] | | | | | | [phone] | | | | + + + + + + + + | Specimen | + + | Tissue - Both | | anterior nares (body | | structure) | + + + + + + + | Performing | Address | City/State/Zipcode | Phone Number | | Organization | | | | + + + + + | [facility] | [address] | [place], [place] [address] | [phone] | + + + + + POC Glucose (02/11/2020 1:03 AM PDT) + + + + + + | Component | Value | Ref Range | Performed | Pathologist | | | | | At | Signature | + + + + + + | Glucose, | 99Comment: Testing | 65 - 99 mg/dL | [facility] | | | POC | performed at [facility];[address] | | LABORATORY | | | | [address];[place], [place] | | | | | | [address] | | | | + + + + + + + + | Specimen | + + | | + + + + + + + | Performing | Address | City/State/Zipcode | Phone Number | | Organization | | | | + + + + + | [facility] | [address] | [place] [address] | [phone] | + + + + + IR Angiogram Pulmonary Bilateral (02/11/2020 12:44 AM PDT) + + | Specimen | + + | | + + + + + | Impressions | Performed At | + + + | Successful pulmonary artery lysis catheter placement. The | [facility] | | catheters will be connected to tPA 0.5 mg/hr per side for 6 hours. | | | If the Fibrinogen level falls by greater than 1/2 baseline or to | | | less than 150, decrease dose by half. If there is any sign of | | | bleeding or fibrinogen <100 discontinue tPA. Catheters will be | | | removed by a member of the interventional radiolgy team in the | | | morning of 02/11/2020. Signed by: Collette Martinez Matthew Sign | | | Date/Time: 02/11/2020 12:33 AM | | + + + + + + | Narrative | Performed At | + + + | BILATERAL | [facility] | | PULMONARY ANGIOGRAM AND LYSIS CATHETER PLACEMENT CLINICAL | | | INFORMATION:Saddle embolism with right heart strain and elevated | | | troponins COMPARISON:Outside hospital CT angiogram of the chest | | | 02/10/2020 PROCEDURE:The risks, benefits and alternatives were discussed | | | with the patient;consent was obtained and placed in the patient's | | | chart. The risksincluded but were not limited to puncture site | | | bleeding, stroke, kidneyfailure, allergic reaction and . Patient | | | was placed in the supine position and both groins weresterilely | | | prepped and draped in the standard fashion. 1% lidocaine wasused for | | | local anesthetic. Under real-time ultrasound guidance used toaccess | | | the right common femoral vein. Two separate access sites | | | wereobtained and 2x45 cm 5 Nepalese sheaths were placed. Using an | | | angledpigtail catheter 1st the left and then the right main | | | pulmonaryarteries were selected. Bilateral pulmonary angiography was | | | performed.Over an exchange length carol and wire 12 cm infusion length | | | catheterswere placed in the left and right pulmonary arteries. | | | Contrast wasinjected to confirm catheter placement. The catheters | | | were secured tothe groin and connected to tPA infusion and heparin | | | drip. Maximum sterile barrier techniques taken. All staff present in | | | the roomperformed hand hygiene prior to the procedure. There were no | | | immediate complications following the procedure.Estimated blood loss: | | | Minimal. Fluoro Time: 9.3 minutes Contrast: 20 cc Omnipaque 240 | | | Radiation dose: 57 mGy Number of images: 5 A permanent sonographic | | | recording was created for the patient's record. FINDINGS:Patency of | | | the right common femoral vein was demonstrated viaultrasound. | | | Angiography shows filling defects throughout the pulmonary | | | arteriespredominantly in the central pulmonary arteries and left upper | | | lobe. Final image shows pulmonary artery lysis catheters in | | | appropriateposition. | | |There were no immediate complications following the procedure. | | |Estimated blood loss: Minimal. | | | | | |Fluoro Time: 9.3 minutes | | | | | |Contrast: 20 cc Omnipaque 240 | | | | | |Radiation dose: 57 mGy | | | | | |Number of images: 5 | | | | | |A permanent sonographic recording was created for the patient's record. | | | | | |FINDINGS: | | |Patency of the right common femoral vein was demonstrated via | | |ultrasound. | | | | | |Angiography shows filling defects throughout the pulmonary arteries | | |predominantly in the central pulmonary arteries and left upper lobe. | | | | | |Final image shows pulmonary artery lysis catheters in appropriate | | |position. | | | | | + + + + + | Procedure Note | + + | Beto, Rad Results In - 02/11/2020 12:44 AM PDT | | BILATERAL PULMONARY ANGIOGRAM AND LYSIS CATHETER PLACEMENT | | | | CLINICAL INFORMATION: | | Saddle embolism with right heart strain and elevated troponins | | | | COMPARISON: | | Outside hospital CT angiogram of the chest 02/10/2020 | | | | PROCEDURE: | | The risks, benefits and alternatives were discussed with the patient; | | consent was obtained and placed in the patient's chart. The risks | | included but were not limited to puncture site bleeding, stroke, kidney | | failure, allergic reaction and . | | | | Patient was placed in the supine position and both groins were | | sterilely prepped and draped in the standard fashion. 1% lidocaine was | | used for local anesthetic. Under real-time ultrasound guidance used to | | access the right common femoral vein. Two separate access sites were | | obtained and 2x45 cm 5 Nepalese sheaths were placed. Using an angled | | pigtail catheter 1st the left and then the right main pulmonary | | arteries were selected. Bilateral pulmonary angiography was performed. | | Over an exchange length carol and wire 12 cm infusion length catheters | | were placed in the left and right pulmonary arteries. Contrast was | | injected to confirm catheter placement. The catheters were secured to | | the groin and connected to tPA infusion and heparin drip. | | | | Maximum sterile barrier techniques taken. All staff present in the room | | performed hand hygiene prior to the procedure. | | | | There were no immediate complications following the procedure. | | Estimated blood loss: Minimal. | | | | Fluoro Time: 9.3 minutes | | | | Contrast: 20 cc Omnipaque 240 | | | | Radiation dose: 57 mGy | | | | Number of images: 5 | | | | A permanent sonographic recording was created for the patient's record. | | | | FINDINGS: | | Patency of the right common femoral vein was demonstrated via | | ultrasound. | | | | Angiography shows filling defects throughout the pulmonary arteries | | predominantly in the central pulmonary arteries and left upper lobe. | | | | Final image shows pulmonary artery lysis catheters in appropriate | | position. | | | | IMPRESSION: | | Successful pulmonary artery lysis catheter placement. The catheters | | will be connected to tPA 0.5 mg/hr per side for 6 hours. | | | | If the Fibrinogen level falls by greater than 1/2 baseline or to less | | than 150, decrease dose by half. | | | | If there is any sign of bleeding or fibrinogen <100 discontinue tPA. | | | | Catheters will be removed by a member of the interventional radiolgy | | team in the morning of 02/11/2020. | | | | | | | | Signed by: Collette Martinez Matthew | | Sign Date/Time: 02/11/2020 12:33 AM | + + + +---------+ + + | Performing | Address | City/State/[facility] | Phone Number | | Organization | | | | + +---------+ + + | [facility] | | | | + +---------+ + + CBC no Differential (02/10/2020 10:34 PM PDT) + + + + + + | Component | Value | Ref Range | Performed | Pathologist | | | | | At | Signature | + + + + + + | WBC | 10.13 | 3.80 - 11.00 | [facility] | | | | | K/uL | LABORATORY | | + + + + + + | RBC | 4.89 | 4.20 - 5.70 | [facility] | | | | | M/uL | LABORATORY | | + + + + + + | Hemoglobin | 14.0 | 13.2 - 17.0 | [facility] | | | | | g/dL | LABORATORY | | + + + + + + | Hematocrit | 42.4 | 39.0 - 50.0 % | [facility] | | | | | | LABORATORY | | + + + + + + | MCV | 86.7 | 80.0 - 100.0 fl | [facility] | | | | | | LABORATORY | | + + + + + + | MCH | 28.6 | 27.0 - 34.0 pg | [facility] | | | | | | LABORATORY | | + + + + + + | MCHC | 33.0 | 32.0 - 35.5 | [facility] | | | | | g/dL | LABORATORY | | + + + + + + | RDW-SD | 44.1 | 37 - 53 fl | [facility] | | | | | | LABORATORY | | + + + + + + | Platelet | 143 (L) | 150 - 400 K/uL | [facility] | | | Count | | | LABORATORY | | + + + + + + | MPV | 10.0Comment: NO NORMAL | fl | [facility] | | | | RANGE ESTABLISHEDTesting | | LABORATORY | | | | performed at [facility] | | | | | | [address];[place] | | | | | | [address] | | | | + + + + + + + + | Specimen | + + | Blood | + + + + + + + | Performing | Address | City/State/Zipcode | Phone Number | | Organization | | | | + + + + + | [facility] | [address] | [place] [address] | [phone] | + + + + + from Last 3 Months Insurance + +--------+ +--------+ +---------+--------+ | Payer | Benefi | Subscriber | Effect | Phone | Address | Type | | | t Plan | ID | norma | | | | | | / | | Dates | | | | | | Group | | | | | | + +--------+ +--------+ +---------+--------+ | MEDICARE | MEDICA | [id number] | 07/08/19 | [phone] | | Medica | | | RE | | 98-Pre | 5 | | re | | | PART A | | sent | | | | | | AND B | | | | | | + +--------+ +--------+ +---------+--------+ | [employer] [place] | MUTUAL | [id number] | 04/07/20 | [phone] | | Indemn | | | AND | | 20-Pre | 0 | | ity | | | [place] | | sent | | | | | | [place] | | | | | | | | MDCR | | | | | | | | SUPPL | | | | | | + +--------+ +--------+ +---------+--------+ + +--------+ +--------+ + + | Guarantor Name | Accoun | Relation to | Date | Phone | Billing Address | | | t Type | Patient | of | | | | | | | | | | + +--------+ +--------+ + + | Juan Alberto Walsh | Person | Self [birth year] | [address] | | | al/Fam | | 1930 | [phone] | [place] | | | [place] | | | [address] (Home) | [address] | + +--------+ +--------+ + + Advance Directives + + + + + | Type | Date Recorded | Patient | Explanation | | | | 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
--- OUTSIDE RECORDS SUMMARY | ~2020-04-14 | XMS | Encounter Summary ---
Demographics + + + | Address | [address] | | | [place] [address] | + + + | Home Phone | | + + + | Preferred Language | Unknown | + + + | Marital Status | | + + + | Baptist Affiliation | Unknown | + + + [...] Team Providers + +------+ + | Care Histotechnician Name | Role | Phone | + +------+ + PCP | Unavailable | + +------+ + Encounter Details +--------+ + + + + | Date | Type | Department | Care Team | Description | +--------+ + + + + | 10/27/ | [facility] | [facility] | Kevin Campos MD | | | 2000 | Encounter | MED CTR MP INTRA OP | [address] | | | | | [address] | [place] | | | | | [place] | [address] | | | | | [address] | [phone] | | | | | [phone] | | | +--------+ + + + + Social History + +-------+ +--------+------+ | Tobacco Use | Types | Packs/Day | Years | Date | | | | | Used | | + +-------+ +--------+------+ | Never Assessed | | | | | + +-------+ +--------+------+ + + + | Sex Assigned at [...] [place] | | | | | | [place] [address] | | | | | | [phone] | | | | | | | | +--------+---------+ + + + documented as of this encounter Visit Diagnoses Not on filedocumented in this encounter"
--- OUTSIDE RECORDS SUMMARY | ~2020-04-14 | XMS | Clinical Summary ---
Demographics + + + | Address | [address] | | | [place] [address] | + + + | Home Phone | | + + + | Preferred Language | Unknown | + + + | Marital Status | | + + + | Mosque Affiliation | Unknown | + + + | Race | Unknown | + + + | Ethnic Group | Unknown | + + + Author + + + | Author | [facility] | | | and [place] | + + + | Organization | [facility] | | | and [...] Team Providers + +------+ + | Care Director Critical Care Name | Role | Phone | + [...] FOR | 2019 | | | D, Clinical Research Specialist | APPT) | +--------+ + + + + | 02/24/ | Telephone | Anticoagulation | Imani Nevarez, | | 2019 | | | METAL CONTROL WORKER | | +--------+ + + + + [...] present | | | | | | ([facility]) (Primary Dx); | | | | | [...] [address] | | | | | | [place] [address] | | | | | | [phone] | | | | | | | [...] R?MRN: | | | | | | [id number] | | | [id number] | | | riteri | | | [...] | | | St. | | | [place] | | | y | | | [...] | | | St. | | | [place] | | | y H. | | [...] | | | | | GISELLE BUNDY (7108) on | | | | | | [...] [facility] | | | | performed at [facility];[address] | | LABORATORY | | | | [address];[place], [place] | | | | | | [address] | | | | + + + + + + + + | Specimen | + + | Blood | + + + + + + + | Performing | Address | City/State/Zipcode | Phone Number | | Organization | | | | + + + + + | [facility] | [address] | [place] [address] | [phone] | + + + + + Protime [...] | | | | | performed at [facility] | | | | | | [address];[place], [place] | | | | | | [address] | | | | + + + + + + + + | Specimen | + + | Blood | + + + + + + + | Performing | Address | City/State/Zipcode | Phone Number | | Organization | | | | + + + + + | [facility] | [address] | [place] [address] | [phone] | + + + + + CBC [...] 0.02Comment: Testing | 0.00 - 0.10 | [facility] | | | Absolute | performed at [facility];[address] | [address] | LABORATORY | | | | [address];[place] | | | | | | [address] | | | | + + + + + + + + | Specimen | + + | Blood | + + + + + + + | Performing | Address | City/State/Zipcode | Phone Number | | Organization | | | | + + + + + | [facility] | [address] | [place] [address] | [phone] | + + + + + Phosphorus [...] Testing | 2.3 - 4.8 mg/dL | [facility] | | | | performed at [facility];[address] | | LABORATORY | | | | [facility];[place], [place] | | | | | | [address] | | | | + + + + + + + + | Specimen | + + | Blood | + + + + + + + | Performing | Address | City/State/Zipcode | Phone Number | | Organization | | | | + + + + + | [facility] | [address] | [place] [address] | [phone] | + + + + + Magnesium [...] Testing | 1.7 - 2.4 mg/dL | [facility] | | | | performed at [facility];[address] | | LABORATORY | | | | [address];[place], [place] | | | | | | [address] | | | | + + + + + + + + | Specimen | + + | Blood | + + + + + + + | Performing | Address | City/State/Zipcode | Phone Number | | Organization | | | | + + + + + | [facility] | [address] | [place] [address] | [phone] | + + + + + Basic [...] | | | | | performed at [facility];[address] | | | | | | [facility];[place], [place] | | | | | | [address] | | | | + + + + + + + + | Specimen | + + | Blood | + + + + + + + | Performing | Address | City/State/Zipcode | Phone Number | | Organization | | | | + + + + + | [facility] | [address] | [place] [address] | [phone] | + + + + + Troponin [...] (H)Comment: 0.04 | 0.00 - 0.04 | [facility] | | | | ng/mL or [...] at | | | | | | [facility];[address] [place] [address] | | | | | | Blvd;[place] [address] | | | | + + + + + + + + | Specimen | + + | Blood | + + + + + + + | Performing | Address | City/State/Zipcode | Phone Number | | Organization | | | | + + + + + | [facility] | [address] | [place] [address] | [phone] | + + + + + Fibrinogen [...] [facility] | | | | performed at [facility];[address] | | LABORATORY | | | | [address];[place] | | | | | | [address] | | | | + + + + + + + + | Specimen | + + | Blood | + + + + + + + | Performing | Address | City/State/Zipcode | Phone Number | | Organization | | | | + + + + + | [facility] | [address] | [place] [address] | [phone] | + + + + + MRSA [...] [facility] | | | | performed at [facility] | | LABORATORY | | | | [address];[place] | | | | | | [address] | | | | + + + + + + + + | Specimen | + + | Tissue - Both | | anterior nares (body | | structure) | + + + + + + + | Performing | Address | City/State/Zipcode | Phone Number | | Organization | | | | + + + + + | [facility] | [address] | [place] [address] | [phone] | + + + + + POC Glucose (02/11/2020 1:03 AM PDT) + + + + + + | Component | Value | Ref Range | Performed | Pathologist | | | | | At | Signature | + + + + + + | Glucose, | 99Comment: Testing | 65 - 99 mg/dL | [facility] | | | POC | performed at [facility];[address] | | LABORATORY | | | | [address];[place], [place] | | | | | | [address] | | | | + + + + + + + + | Specimen | + + | | + + + + + + + | Performing | Address | City/State/Zipcode | Phone Number | | Organization | | | | + + + + + | [facility] | [address] | [place] [address] | [phone] | + + + + + IR [...] | | wereobtained and 2x45 cm 5 Turkmen sheaths were placed. Using an | | [...] | | obtained and 2x45 cm 5 Turkmen sheaths were placed. Using an angled | [...] + + | Performing | Address | City/State/[facility] | Phone Number | | Organization | [...] LABORATORY | | | | performed at [facility] | | | | | | [address];[place] | | | | | | [address] | | | | + + + + + + + + | Specimen | + + | Blood | + + + + + + + | Performing | Address | City/State/Zipcode | Phone Number | | Organization | | | | + + + + + | [facility] | [address] | [place] [address] | [phone] | + + + + + from [...] +--------+ +---------+--------+ | MEDICARE | MEDICA | [id number] | 07/08/19 | [phone] | | Medica | | | RE | | 98-Pre | 5 | | re | | | PART A | | sent | | | | | | AND B | | | | | | + +--------+ +--------+ +---------+--------+ | [employer] [place] | MUTUAL | [id number] | 04/07/20 | [phone] | | Indemn | | | AND | | 20-Pre | 0 | | ity | | | [place] | | sent | | | | | | [place] | | | | | | | [...] [place]que | | | 9 (Home) | [address] | + +--------+ +--------+ + + Advance Directives + + + + + | Type | Date Recorded | Patient | Explanation | | | | 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
--- OUTSIDE RECORDS SUMMARY | ~2020-04-14 | XMS | Encounter Summary ---
Demographics + + + | Address | [address] | | | [place] [address] | + + + | Home Phone | | + + + | Preferred Language | Unknown | + + + | Marital Status | | + + + | Yazidism Affiliation | Unknown | + + + | Race | Unknown | + + + | Ethnic Group | Unknown | + + + Author + + + | Author | [facility] | | | and [place] | + + + | Organization | [facility] | | [...] Team Providers + +------+ + | Care Emergency Medicine Name | Role | Phone | + [...] | | | | | pulmonary | [address] | | | | | | embolism | Phone: | | | | | | type, | [phone] | | | | | | unspecified | Fax: | | | | | | whether | [phone] | | | | | | acute [...] | | | | | mechanism | [phone] | | | | | | ([facility]) | Phone: | | | | | | Procedures | [phone] | | | | | | VAS Carotid | Fax: | | | | | | Duplex | [phone] | | | | | | Bilateral [...] | | | Procedures | [place], | [place], [place] | | | | | Consult | [place] [address] | [address] Phone: | | | | | | Phone: | [phone] | | | | | | [phone] | Fax: | | | | | | Fax: | [phone] | | | | | | [phone] | | + +--------+ + + + + Encounter Details +--------+---------+ + + + | Date | Type | Department | Care Team | Description | +--------+---------+ + + + | 04/10/ | Office | [facility] | Giselle Garcia DO | 1st degree AV block | | 2020 | Visit | CARDIOLOGY [place] | [address] | (Primary Dx); | | | | [address] | [address] [place], [place] | Bradycardia; | | | | [address] | [address] | Cerebrovascular | | | | [place], [place] | | accident (CVA), | | | | [address] | | unspecified | | | | [phone] | | mechanism ([facility]); | | | | | | Pulmonary [...] present | | | | | | ([facility]) | +--------+---------+ + + + Social History [...] Garcia DO - 04/10/2020 1:00 PM PDT [facility] Cardiology Cardiology Consult Note Reason for Consultation: [...] episode of syncope. [facility] where he underwent a pulmonary [...] file Gets together: Not on file Attends uatsdin service: Not on file Active member of [...] dipped into the 30s to 40s at [facility]. He denies any symptoms of bradycardia arrhythmias. He was previously offered screenin g for obstructive sleep apnea but refused, we again discussed a referral for sleep ap[facility] and the patient is not interested. [...] [address] | | | | | | [place] [address] | | | | | | [phone] | | | | | | | [...] JOSE | | | | | | GISELLE BUNDY (5100) on | | | | [...]
--- OUTSIDE RECORDS SUMMARY | ~2020-04-14 | XMS | Encounter Summary ---
Demographics + + + | Address | [address] | | | [place] [address] | + + + | Home Phone | | + + + | Preferred Language | Unknown | + + + | Marital Status | | + + + | Mandaeism Affiliation | Unknown | + + + | Race | Unknown | + + + | Ethnic Group | Unknown | + + + Author + + + | Author | [facility] | | | and [place] | + + + | Organization | [facility] | | | [...] Team Providers + +------+ + | Care Grader Meat Name | Role | Phone | + +------+ + | Antonio Nolasco MD | PCP | | + +------+ + Encounter Details +--------+ + + + + | Date | Type | Department | Care Team | Description | +--------+ + + + + | 02/24/ | Telephone | [facility] | Imani Nevarez, | | | 2019 | | CENTER | [facility] | | | | | ANTICOAGULATION | | | | | | [facility] | | | | | | [address] | | | | | | [place], [place] | | | | | | [address] | | | | | | [phone] | | | +--------+ + + + [...] [place] | | | | | | [facility] [address] | | | | | | [phone] | | | | | | | | +--------+---------+ + + + documented as of this encounter Visit Diagnoses Not on filedocumented in this encounter"
--- OUTSIDE RECORDS SUMMARY | ~2020-04-14 | XMS | Encounter Summary ---
Demographics + + + | Address | [address] | | | [place] [address] | + + + | Home Phone | | + + + | Preferred Language | Unknown | + + + | Marital Status | | + + + | Pentecostalism Affiliation | Unknown | + + + [...] Team Providers + +------+ + | Care Cattle Dipper Name | Role | Phone | + +------+ + | Antonio Nolasco MD | PCP | | + +------+ + Encounter Details +--------+--------+ + + + | Date | Type | Department | Care Team | Description | +--------+--------+ + + + | 02/09/ | Intake | [facility] | | N/A | | 2019 | | [place] [address] | | | | | | [address] | | | | | | [place], [place] | | | | | | [address] | | | | | | [phone] | | | +--------+--------+ + + + [...] [place] | | | | | | [place] [address] | | | | | | [phone] | | | | | | | | +--------+---------+ + + + documented as of this encounter Visit Diagnoses Not on filedocumented in this encounter"
--- OUTSIDE RECORDS SUMMARY | ~2020-04-14 | XMS | Encounter Summary ---
Demographics + + + | Address | [address] | | | [place] [address] | + + + | Home Phone [...] Team Providers + +------+ + | Care Ship Fastener Name | Role | Phone | + +------+ + | Antonio Nolasco MD | PCP | | + +------+ + Encounter Details +--------+ + + + + | Date | Type | Department | Care Team | Description | +--------+ + + + + | 02/24/ | Telephone | [facility] | Imani Nevarez, | | | 2019 | | CENTER | PLUMBING SERVICE TECHNICIAN | | | | | ANTICOAGULATION | | | | | | [facility] | | | | | | [address] | | | | | | [place], [place] | | | | | | [address] | | | | | | [phone] | | | +--------+ + + + [...] | | | | | | [facility] [address] | | | | | | [phone] | | | | | | | | +--------+---------+ + + + documented as of this encounter Visit Diagnoses Not on filedocumented in this encounter"
--- OUTSIDE RECORDS SUMMARY | ~2020-04-14 | XMS | Encounter Summary ---
Demographics + + + | Address | [address] | | | [place] [address] | + + + | Home Phone | | + + + | Preferred Language | Unknown | + + + | Marital Status | | + + + | Christianity Affiliation | Unknown | + + + | Race | Unknown | + + + | Ethnic Group | Unknown | + + + Author + + + | Author | [facility] | | | and [place] | + + + | Organization | [facility] | | [...] Team Providers + +------+ + | Care Wallpaper Printer Name | Role | Phone | + [...] + + | 04/09/ | Telephone | [facility] | Veronica Smith | Other (SCREENED FOR | | 2019 | | CARDIOLOGY [place]IM[place] Vuong, Detonator Maker | APPT) | | | | [address] | | | | | | [place], [place] | | | | | | [address] | | | | | | [phone] | | | +--------+ + + + [...] [place] | | | | | | [place] [address] | | | | | | [phone] | | | | | | | | +--------+---------+ + + + documented as of this encounter Visit Diagnoses Not on filedocumented in this encounter"
--- OUTSIDE RECORDS SUMMARY | ~2020-04-14 | XMS | Encounter Summary ---
Demographics + + + | Address | [address] | | | [place] [address] | + + + | Home Phone | | + + + | Preferred Language | Unknown | + + + | Marital Status | | + + + | Judaism Affiliation | Unknown | + + + | Race | Unknown | + + + | Ethnic Group | Unknown | + + + Author + + + | Author | [facility] | | | and [place] | + + + | Organization | [facility] | | | [...] Team Providers + +------+ + | Care Lead Java Programmer Name | Role | Phone | + +------+ + | Antonio Nolasco MD | PCP | | + +------+ + Encounter Details +--------+ + + + + | Date | Type | Department | Care Team | Description | +--------+ + + + + | 02/13/ | Telephone | [facility] | Jigna Metcalf RN | | | 2020 | | CENTER | | | | | | [facility] | | | | | | [facility] | | | | | | [address] | | | | | | [place] | | | | | | [address] | | | | | | [phone] | | | +--------+ + + + [...] [place] | | | | | | [place] [address] | | | | | | [phone] | | | | | | | | +--------+---------+ + + + documented as of this encounter Visit Diagnoses Not on filedocumented in this encounter"
--- OUTSIDE RECORDS SUMMARY | ~2020-04-14 | XMS | Encounter Summary ---
Demographics + + + | Address | [address] | | | [place] [address] | + + + | Home Phone | | + + + | Preferred Language | Unknown | + + + | Marital Status | | + + + | Samaritan Affiliation | Unknown | + + + | Race | Unknown | + + + | Ethnic Group | Unknown | + + + Author + + + | Author | [facility] | | | and [place] | + + + | Organization | [facility] | | | [...] Team Providers + +------+ + | Care Sinker Winder Name | Role | Phone | + +------+ + PCP | Unavailable | + +------+ + Encounter Details +--------+ + + + + | Date | Type | Department | Care Team | Description | +--------+ + + + + | 10/27/ | [facility] | [facility] | Kevin Campos MD | | | 2000 | Encounter | [facility] | [address] | | | | | [address] | [place] | | | | | [place] | [address] | | | | | [address] | [phone] | | | | | [phone] | | | +--------+ + + + [...] | | | | | [place] [address] | | | | | | [phone] | | | | | | | | +--------+---------+ + + + documented as of this encounter Visit Diagnoses Not on filedocumented in this encounter"
--- OUTSIDE RECORDS SUMMARY | ~2020-04-14 | XMS | Encounter Summary ---
Demographics + + + | Address | [address] | | | [place] [address] | + + + | Home Phone | | + + + | Preferred Language | Unknown | + + + | Marital Status | | + + + | Mu-Ism Affiliation | Unknown | + + + [...] Team Providers + +------+ + | Care Computerized Table Cutter Name | Role | Phone | + [...] | | | embolism, | BLVD | [employer] | | | | | unspecified | [place], [place] | [address] | | | | | pulmonary | [address] | [place], | | | | | embolism | Phone: | [place] [address] | | | | | type, | [phone] | Phone: | | | | | unspecified | Fax: | [phone] | | | | | whether | [phone] | Fax: | | | | | acute cor | | [phone] | | | | | pulmonale | | | | | | | present | | | | | | | ([facility]) | | | +--------+ + + + [...] + + | 02/09/ | Hospital | [facility] | Solomon Santos DO | Acute pulmonary | | 2020 - | Encounter | [facility] | [address] | embolism, | | | | [address] | [place], [place] | unspecified | | 02/11/ | | [place], [place] | [address] | pulmonary embolism | | 2019 | | [address] | [phone] | type, unspecified | | | | [phone] | | whether acute cor | | | | | Epi Martinez | pulmonale present | | | | | MD [address] | ([facility]) (Primary Dx); | | | | | [address] | Syncope, unspecified | | | | | [place] [address] | syncope type | | | | | [phone] | | | | | | | | | | | | Eder Álvarez | | | | | | Archie Miller MD [address] | | | | | | [address] | | | | | | [place] [address] | | | | | | [phone] | | | | | | | | | | | | Elizabeth Turcios MD | | | | | | [address] | | | | | | [place] [address] | | | | | | [phone] | | | | | | | [...] with chemotherapy, hypertension was brought in from [facility] where he presented with increasing fatigue, dizziness [...] subcu therapeutic Lovenox with close follow-up with Confucianist anticoagulation monitoring. Vital Signs: BP 112/56 | [...] Fair Discharge Procedure Orders Ambulatory Referral to [facility] Anticoagulation Monitoring Referral Priority: Routine Referral [...] a blood clot that has [facility]. The symptoms include: Chest pain Trouble breathing [...] a cut, or vagina Date Last Reviewed: 12/08/201619998454-4752 [employer]. [address] [place] [address]. All righ ts reserved. This information is [...] the advice of your doctor or health infant caregiver. Make sure you receive a puncture-resistant container to dispose of the needles and syringes once you have finished with them. Do not reuse these items. Return the container to your do ctor or health infant caregiver for proper disposal. Talk to your saw offbearer regarding the use of this medicine in children. Special care may be needed. What side effects may I notice from receiving this medicine? Side effects that you should report to your doctor or health infant caregiver as soon as p ossible: allergic reactions [...] attention (report to your doctor or health infant caregiver if they continue or are bothersome): pain, [...] this medicine? Visit your doctor or health infant caregiver for regular checks on your progress. Your con dition will be monitored carefully while you are receiving this medicine. Notify your doctor or health infant caregiver and seek emergency treatment if you develop breathing problems; changes in vision; chest pain; severe, sudden headache; pain, swelling, warmth in the leg; trouble speaking; sudden numbness or weakness of the face, arm, or leg. T hese can be signs that your condition has gotten worse. If you are going to have surgery, tell your doctor or health infant caregiver that you are taking this medicine. Do [...] the skin to your doctor or health infant caregiver . NOTE:This sheet is a summary. It may not cover all possible information. If you have questi ons about this medicine, talk to your doctor, pharmacist, or health care provider. Copyright 2019 [employer] What to Know When Taking Warfarin Warfarin [...] stopping, starting, or changing any prescription or xbmp-rdk-buyqciw (OTC) medicines . This includes herbal medicines [...] products such as ginkgo, Q10, garlic, or Chanute's wort 5. Don't make major changes in [...] nose or a cut, for example. A wjiwukr-twhr-dinsvk period or bleeding between periods Coughing or throwing up blood or something that looks like coffee grounds Nausea, bloating,or diarrhea Bleeding hemorrhoids Dark red or brown urine Red or black tarry stools Red or dewki-xkb-wuik mane on the skin that get larger [...] doctor right away or go to [facility]. Rash Itching Swelling Trouble swallowing or breathing [NOTE: This information topic may not include all directions, precautions, medical conditio ns, medicine/food interactions, and warnings for this medicine. Check with your doctor, nurs e, or pharmacist for any questions that you may have.] Date Last Reviewed: 04/07/201619995564-8208 [employer]. [address] [place] [address], [place] [address]. All [facility] ts reserved. This information is not [...] information carefully each time. Talk to your saw offbearer regarding the use of this medicine in children. Special care may be needed. What side effects may I notice from receiving this medicine? Side effects that you should report to your doctor or health infant caregiver as soon as p ossible: allergic reactions [...] attention (report to your doctor or health infant caregiver if they continue or are bothersome): diarrhea [...] this medicine? Visit your doctor or health infant caregiver for regular checks on your progress. You [...] less often. Notify your doctor or health infant caregiver and seek emergency treatment if you develop [...] taking or stop taking any medicines or sstz-rez-qqoksgd medicines except on th e advice of your doctor or health infant caregiver. You should discuss your diet with your doctor or health infant caregiver. Do not make alexia r changes in [...] risks and her options with her health infant caregiver. Avoid sports and activities that might cause injury while you are using this medicine. Nesha re falls or injuries can cause unseen bleeding. Be careful when using sharp tools or knives. Consider using an electric razor. Take special care brushing or flossing your teeth. Report any injuries, bruising, or red spots on the skin to your doctor or health infant caregiver . If you have an illness that [...] clot blood. Ask your doctor or health infant caregiver how long you ne ed to be careful. If you are going to have surgery or dental work, tell your doctor or [facility] infant caregiver that you have been taking this medicine. [...] + + + +---------+ + + | escitalopram | Take 20 mg by mouth | | 0 | 08/30/20 | | | (LEXAPRO) 20 mg | Daily. | | | 19 | | | tablet | | | | | | + [...] as of this encounter Progress Notes Silke Carl, [facility] - 02/12/2020 10:11 AM PDTFormatting of this [...] and modify therapy as indicated. Silke Carl [facility] 02/12/2020 10:06 AM Associated attestation - Destiny Valencia [facility] - 02/12/2020 3:00 PM PDTI agree with the resident's assessment and plan. Continue nomogram dosing of 5 mg daily. Destiny Valencia PharmD, [facility] 02/12/20 3:00 PM Destiny Valencia [facility] - 02/11/2020 2:04 PM PDT Pharmacy Warfarin Monitoring: Juan Alberto Walsh male 89 y.o., admitted for new pulmonary embolism s/p EKOS catheter with alteplase. Cathete r sheaths removed this morning. Pharmacy consulted to dose warfarin per: Dr. Keita INDICATION: PE OTHER ANTICOAGULATION: Heparin infusion (bridge to therapeutic INR) DRUG INTERACTIONS: none currently PATIENT DIET: general diet started 02/10 Recent Labs Lab 02/11/20 0802/10/20 2234 HGB 13.4 14.0 PLT 127* 143* INR 1.1 1.2 DATE 02/10 INR 1.1 Warfarin Dose 5 mg planned Assessment: Baseline INR is 1.1 Initiating the recommended warfarin nomogram dose of 5 mg Plan: Warfarin 5 mg po today INR in am Pharmacy will continue to follow and modify therapy as indicated. Destiny Valencia PharmD, [facility] 02/11/20 2:03 PM Maryse Persaud RN - 02/11/2020 11:32 AM PDT . [facility] Service: Wound Care Consult Note Hospital Day: 0 SUBJECTIVE Patient Summary: Wound care consulted for a possible pressure injury to the right but tocks. OBJECTIVE 02/11/20 1130 Wound 02/11/20 011 Right gluteal lesion Placement Date/Time: 02/11/20114 Present [...] PLAN Right buttocks Wound: Pt states his family advocate told him the wound was a "wisdom [...] any additional questions. Maryse Orosco RN, CMSRN, [facility] Inpatient Wound Ostomy Care [phone] 02/11/2020 11:32 AM Felisha Joseph PA - [...] s were obtained and 2x45 cm 5 Danish sheaths were placed. Using an angled pigtail [...] contact us if any further questions/issues arise. Felisha Burris PA-C Vascular and Interventional Radiology documented in this [...] [address] | | | | | | [place] [address] | | | | | | [phone] | | | | | | | [...] pulmonary | Ordered: 02/12/2020 | | to [facility] | Referral | e | embolism, [...] KEM | | | | performed at [facility] [place] [place];[address] | | LABORATORY | | | | [address];[place] | | | | | | [address] | | | | + + + + + + + + | Specimen | + + | Blood | + + + + + + + | Performing | Address | City/State/Zipcode | Phone Number | | Organization | | | | + + + + + | [facility] | [address] | [place] [address] | [phone] | + + + + + Protime INR (02/12/2020 4:02 AM PDT) + + + [...] | | | | | performed at [facility] [place] [place];[address] | | | | | | [address];[place], [place] | | | | | | [address] | | | | + + + + + + + + | Specimen | + + | Blood | + + + + + + + | Performing | Address | City/State/Zipcode | Phone Number | | Organization | | | | + + + + + | [facility] | [address] | [place] [address] | [phone] | + + + + + Phosphorus (02/12/2020 4:02 AM PDT) + + + + + + | Component | Value | Ref Range | Performed | Pathologist | | | | | At | Signature | + + + + + + | Phosphorus | 2.6Comment: Testing | 2.3 - 4.8 mg/dL | [facility] | | | | performed at [facility] [place];[address] | | LABORATORY | | | | [address] | | | | | | [address] | | | | + + + + + + + + | Specimen | + + | Blood | + + + + + + + | Performing | Address | City/State/Zipcode | Phone Number | | Organization | | | | + + + + + | [facility] | [address] | [place] [address] | [phone] | + + + + + Magnesium (02/12/2020 4:02 AM PDT) + + + + + + | Component | Value | Ref Range | Performed | Pathologist | | | | | At | Signature | + + + + + + | Magnesium | 2.0Comment: Testing | 1.7 - 2.4 mg/dL | [facility] | | | | performed at [facility] [place] [place];[address] | | LABORATORY | | | | [address];[place], [place] | | | | | | [address] | | | | + + + + + + + + | Specimen | + + | Blood | + + + + + + + | Performing | Address | City/State/Zipcode | Phone Number | | Organization | | | | + + + + + | [facility] | [address] | [place] [address] | [phone] | + + + + + CBC [...] 0.02Comment: Testing | 0.00 - 0.10 | [facility] | | | Absolute | performed at [facility] [place] [place];[address] | [address] | LABORATORY | | | | [address];[place], [place] | | | | | | [address] | | | | + + + + + + + + | Specimen | + + | Blood | + + + + + + + | Performing | Address | City/State/Zipcode | Phone Number | | Organization | | | | + + + + + | [facility] | [address] | [place] [address] | [phone] | + + + + + Basic [...] | | | | | performed at [facility] [place] [place];[facility] | | | | | | [facility];[place], [place] | | | | | | [address] | | | | + + + + + + + + | Specimen | + + | Blood | + + + + + + + | Performing | Address | City/State/Zipcode | Phone Number | | Organization | | | | + + + + + | [facility] | [address] | [place] [address] | [phone] | + + + + + PTT (02/12/2020 12:58 AM PDT) + + + + + + | Component | Value | Ref Range | Performed | Pathologist | | | | | At | Signature | + + + + + + | PTT | 59 (H)Comment: Testing | 23 - 32 seconds | [facility] | | | | performed at [facility] [place] [place];[address] | | LABORATORY | | | | [address];[place] | | | | | | [address] | | | | + + + + + + + + | Specimen | + + | Blood | + + + + + + + | Performing | Address | City/State/Zipcode | Phone Number | | Organization | | | | + + + + + | [facility] | [address] | [place] [address] | [phone] | + + + + + Troponin I (02/11/2020 7:50 PM PDT) + + + + + + | Component | Value | Ref Range | Performed | Pathologist | | | | | At | Signature | + + + + + + | Troponin I | 0.256 (H)Comment: 0.04 | 0.00 - 0.04 | [facility] | | | | ng/mL or [...] at | | | | | | [facility] [place];[address] | | | | [address];[place] [address] | | | | + + + + + + + + | Specimen | + + | Blood | + + + + + + + | Performing | Address | City/State/Zipcode | Phone Number | | Organization | | | | + + + + + | [facility] | [address] | [place] [address] | [phone] | + + + + + PTT (02/11/2020 5:05 PM PDT) + + + + + + | Component | Value | Ref Range | Performed | Pathologist | | | | | At | Signature | + + + + + + | PTT | 77 ()Comment: CALLED | 23 - 32 seconds | [facility] | | | | NURSING UNITREAD BACK | | LABORATORY | | | | RESULTS VERIFIEDMAJO Roth | | | | | | RN 9RP @ 5306 DLSTesting | | | | | | performed at [facility] [place] [place];[facility] | | | | | | [address];[place], [place] | | | | | | [address] | | | | + + + + + + + + | Specimen | + + | Blood | + + + + + + + | Performing | Address | City/State/Zipcode | Phone Number | | Organization | | | | + + + + + | [facility] | [address] | [place] [address] | [phone] | + + + + + Fibrinogen (02/11/2020 12:35 PM PDT) + + + + + + | Component | Value | Ref Range | Performed | Pathologist | | | | | At | Signature | + + + + + + | Fibrinogen | 600 (H)Comment: Testing | 200 - 450 mg/dL | [facility] | | | | performed at [facility] [place] [place];[address] | | LABORATORY | | | | [address];[place] | | | | | | [address] | | | | + + + + + + + + | Specimen | + + | Blood | + + + + + + + | Performing | Address | City/State/Zipcode | Phone Number | | Organization | | | | + + + + + | [facility] | [address] | [place] [address] | [phone] | + + + + + Troponin I (02/11/2020 12:32 PM PDT) + + + + + + | Component | Value | Ref Range | Performed | Pathologist | | | | | At | Signature | + + + + + + | Troponin I | 0.42 (H)Comment: 0.04 | 0.00 - 0.04 | [facility] | | | | ng/mL or [...] at | | | | | | [facility] [place];[address] [place] [address] | | | | | | Blvd;[place] [address] | | | | + + + + + + + + | Specimen | + + | Blood | + + + + + + + | Performing | Address | City/State/Zipcode | Phone Number | | Organization | | | | + + + + + | [facility] | [address] | [place] [address] | [phone] | + + + + + PTT (02/11/2020 8:02 AM PDT) + + + + + + | Component | Value | Ref Range | Performed | Pathologist | | | | | At | Signature | + + + + + + | PTT | 37 (H)Comment: Testing | 23 - 32 seconds | [facility] | | | | performed at [facility] [place] [place];[address] | | LABORATORY | | | | [address];[place] | | | | | | [address] | | | | + + + + + + + + | Specimen | + + | Blood | + + + + + + + | Performing | Address | City/State/Zipcode | Phone Number | | Organization | | | | + + + + + | [facility] | [address] | [place] [address] | [phone] | + + + + + Protime INR (02/11/2020 8:02 AM PDT) + + + + + + | Component | Value | Ref Range | Performed | Pathologist | | | | | At | Signature | + + + + + + | INR | 1.1Comment: REFERENCE | | KR | | | | RANGE:0.9 - 1.2 [...] | | | | | performed at [facility] [place] [place];[facility] | | | | | | [facility];[place], [place] | | | | | | [address] | | | | + + + + + + + + | Specimen | + + | Blood | + + + + + + + | Performing | Address | City/State/Zipcode | Phone Number | | Organization | | | | + + + + + | [facility] | [address] | [place] [address] | [phone] | + + + + + CBC [...] 0.03Comment: Testing | 0.00 - 0.10 | [facility] | | | Absolute | performed at [facility], [address] | [address] | LABORATORY | | | | [address], | | | | | | [place] [address] | | | | + + + + + + + + | Specimen | + + | Blood | + + + + + + + | Performing | Address | City/State/Zipcode | Phone Number | | Organization | | | | + + + + + | [facility] | [address] | [place] [address] | [phone] | + + + + + Fibrinogen (02/11/2020 8:02 AM PDT) + + + + + + | Component | Value | Ref Range | Performed | Pathologist | | | | | At | Signature | + + + + + + | Fibrinogen | 531 (H)Comment: Testing | 200 - 450 mg/dL | [facility] | | | | performed at [facility] [place] [place];[address] | | LABORATORY | | | | [address];[place] | | | | | | [address] | | | | + + + + + + + + | Specimen | + + | Blood | + + + + + + + | Performing | Address | City/State/Zipcode | Phone Number | | Organization | | | | + + + + + | [facility] | [address] | [place] [address] | [phone] | + + + + + Phosphorus (02/11/2020 4:02 AM PDT) + + + + + + | Component | Value | Ref Range | Performed | Pathologist | | | | | At | Signature | + + + + + + | Phosphorus | 2.9Comment: Testing | 2.3 - 4.8 mg/dL | [facility] | | | | performed at [facility] [place] [place];[address] | | LABORATORY | | | | [address];[place] | | | | | | [address] | | | | + + + + + + + + | Specimen | + + | Blood | + + + + + + + | Performing | Address | City/State/Zipcode | Phone Number | | Organization | | | | + + + + + | [facility] | [address] | [place] [address] | [phone] | + + + + + Magnesium (02/11/2020 4:02 AM PDT) + + + + + + | Component | Value | Ref Range | Performed | Pathologist | | | | | At | Signature | + + + + + + | Magnesium | 1.8Comment: Testing | 1.7 - 2.4 mg/dL | [facility] | | | | performed at [facility] [place] [place];[address] | | LABORATORY | | | | [address];[place] | | | | | | [address] | | | | + + + + + + + + | Specimen | + + | Blood | + + + + + + + | Performing | Address | City/State/Zipcode | Phone Number | | Organization | | | | + + + + + | [facility] | [address] | [place] [address] | [phone] | + + + + + Basic [...] | >60Comment: GFR <60: | >60 | [facility] | | | GFR | CHRONIC [...] | | | | | | MDRD IDAL traceable | | | | | | equation.Testing | | | | | | performed at [facility] [place] [place];[address] | | | | | | [facility];[place], [place] | | | | | | [address] | | | | + + + + + + + + | Specimen | + + | Blood | + + + + + + + | Performing | Address | City/State/Zipcode | Phone Number | | Organization | | | | + + + + + | [facility] | [address] | [place] [address] | [phone] | + + + + + Troponin I (02/11/2020 4:02 AM PDT) + + + + + + | Component | Value | Ref Range | Performed | Pathologist | | | | | At | Signature | + + + + + + | Troponin I | 0.604 (H)Comment: 0.04 | 0.00 - 0.04 | [facility] | | | | ng/mL or [...] at | | | | | | [facility] [place] [place];[address] [facility] | | | | | | [facility];[place] [address] | | | | + + + + + + + + | Specimen | + + | Blood | + + + + + + + | Performing | Address | City/State/Zipcode | Phone Number | | Organization | | | | + + + + + | [facility] | [address] | [place] [address] | [phone] | + + + + + MRSA [...] Result | NEGATIVEComment: Testing | MRSNEG | [facility] | | | | performed at [facility] [place] [place];[address] | | LABORATORY | | | | [address];[place] | | | | | | [address] | | | | + + + + + + + + | Specimen | + + | Tissue - Both | | anterior nares (body | | structure) | + + + + + + + | Performing | Address | City/State/Zipcode | Phone Number | | Organization | | | | + + + + + | [facility] | [address] | [place] [address] | [phone] | + + + + + Fibrinogen (02/11/2020 1:30 AM PDT) + + + + + + | Component | Value | Ref Range | Performed | Pathologist | | | | | At | Signature | + + + + + + | Fibrinogen | 559 (H)Comment: Testing | 200 - 450 mg/dL | [facility] | | | | performed at [facility] [place] [place];[address] | | LABORATORY | | | | [address];[place] | | | | | | [address] | | | | + + + + + + + + | Specimen | + + | Blood | + + + + + + + | Performing | Address | City/State/Zipcode | Phone Number | | Organization | | | | + + + + + | [facility] | [address] | [place] [address] | [phone] | + + + + + POC Glucose (02/11/2020 1:03 AM PDT) + + + + + + | Component | Value | Ref Range | Performed | Pathologist | | | | | At | Signature | + + + + + + | Glucose, | 99Comment: Testing | 65 - 99 mg/dL | [facility] | | | POC | performed at [facility] [place] [place];[address] | | LABORATORY | | | | [address];[place] | | | | | | [address] | | | | + + + + + + + + | Specimen | + + | | + + + + + + + | Performing | Address | City/State/Zipcode | Phone Number | | Organization | | | | + + + + + | [facility] | [address] | [place] [address] | [phone] | + + + + + IR [...] | morning of 02/11/2020. Signed by: Collette Martinez, Epi Sign | | | Date/Time: 02/11/2020 12:33 [...] | | wereobtained and 2x45 cm 5 Danish sheaths were placed. Using an | | [...] | | obtained and 2x45 cm 5 Danish sheaths were placed. Using an angled | [...] + + + | PTT | 158 ()Comment: CALLED | 23 - 32 seconds | [facility] | | | | TO JOSE JUAN Elizalde RN/DIMITRIS AT | | LABORATORY | | | | 4884 BY MWREAD BACK | | | | | | RESULTS VERIFIEDTesting | | | | | | performed at [facility] [place] [place];[address] | | | | | | [address];[place], [place] | | | | | | [address] | | | | + + + + + + + + | Specimen | + + | Blood | + + + + + + + | Performing | Address | City/State/Zipcode | Phone Number | | Organization | | | | + + + + + | [facility] | [address] | [place] [address] | [phone] | + + + + + Jennifer MAYFIELD (02/10/2020 10:34 PM PDT) + + + [...] | | | | | performed at [facility] [place] [place];[address] | | | | | | [address];[place], [place] | | | | | | [address] | | | | + + + + + + + + | Specimen | + + | Blood | + + + + + + + | Performing | Address | City/State/Zipcode | Phone Number | | Organization | | | | + + + + + | [facility] | [address] | [place] [address] | [phone] | + + + + + CBC [...] LABORATORY | | | | performed at [facility] [place] [place];[address] | | | | | | [address];[place] | | | | | | [address] | | | | + + + + + + + + | Specimen | + + | Blood | + + + + + + + | Performing | Address | City/State/Zipcode | Phone Number | | Organization | | | | + + + + + | [facility] | [address] | [place] [address] | [phone] | + + + + + Troponin I (02/10/2020 10:20 PM PDT) + + + + + + | Component | Value | Ref Range | Performed | Pathologist | | | | | At | Signature | + + + + + + | Troponin I | 0.563 (H)Comment: 0.04 | 0.00 - 0.04 | [facility] | | | | ng/mL or [...] at | | | | | | [facility] – [place];[address] | | | | | | [address];[place] [address] | | | | + + + + + + + + | Specimen | + + | Blood | + + + + + + + | Performing | Address | City/State/Zipcode | Phone Number | | Organization | | | | + + + + + | [facility] | [address] | [place] [address] | [phone] | + + + + + ECG [...] | | | | | | editor sound Veronica Orellana | | | | | [...] | | | | First dose on Tue02/11/20 at 1800, | | PM PDT | | | | | Reproductive Risk: Use | | | | | | | appropriate handling precautions. | | | | | | | Drug education required., | | | | | | + +-------+ +------+---+---+ + +---+ | | | + +---+ | warfarin per pharmacy [facility]ARM[facility] | | | CONSULT, Starting Tue02/12/20 at | | | 0000, What is the goal INR range | | | for this patient? 2-3 | | + +---+ | | | + +---+ documented in this encounter
--- OUTSIDE RECORDS SUMMARY | ~2020-04-14 | XMS | Encounter Summary ---
Demographics + + + | Address | [address] | | | [place] [address] | + + + | Home Phone | | + + + | Preferred Language | Unknown | + + + | Marital Status | | + + + | Mosque Affiliation | Unknown | + + + | Race | Unknown | + + + | Ethnic Group | Unknown | + + + Author + + + | Author | [facility] | | | and [place] | + + + | Organization | [facility] | | | and [...] Team Providers + +------+ + | Care Commissioning Specialist Name | Role | Phone | + [...] | | | embolism, | BLVD | [place] | | | | | unspecified | [place], [place] | [address] | | | | | pulmonary | [address] | [place], | | | | | embolism | Phone: | [place] [address] | | | | | type, | [phone] | Phone: | | | | | unspecified | Fax: | [phone] | | | | | whether | [phone] | Fax: | | | | | acute cor | | [phone] | | | | | pulmonale | | | | | | | present | | | | | | | ([facility]) | | | +--------+ + + + [...] + + | 02/09/ | Hospital | [facility] | Solomon Santos DO | Acute pulmonary | | 2020 - | Encounter | [facility] | [address] | embolism, | | | | [address] | [place], [place] | unspecified | | 02/11/ | | [place], [place] | [address] | pulmonary embolism | | 2019 | | [address] | [phone] | type, unspecified | | | | [phone] | | whether acute cor | | | | | Epi Martinez | pulmonale present | | | | | MD [address] | ([facility]) (Primary Dx); | | | | | [address] | Syncope, unspecified | | | | | [place] [address] | syncope type | | | | | [phone] | | | | | | | | | | | | Eder Álvarez | | | | | | Archie Miller MD [address] | | | | | | [address] | | | | | | [place] [address] | | | | | | [phone] | | | | | | | | | | | | Elizabeth Turcios MD | | | | | | [address] | | | | | | [place] [address] | | | | | | [phone] | | | | | | | [...] with chemotherapy, hypertension was brought in from [facility] where he presented with increasing fatigue, [...] subcu therapeutic Lovenox with close follow-up with [facility] anticoagulation monitoring. Vital Signs: BP 112/56 | [...] Fair Discharge Procedure Orders Ambulatory Referral to [facility] Anticoagulation Monitoring Referral Priority: Routine Referral Type: [...] a blood clot that has traveled to [facility]. The symptoms include: Chest pain Trouble [...] a cut, or vagina Date Last Reviewed: 12/08/201619992064-0659 [employer]. [address] [place] [address]. All righ ts reserved. This information is [...] the advice of your doctor or health home care and home health aides teacher. Make sure you receive a puncture-resistant container to dispose of the needles and syringes once you have finished with them. Do not reuse these items. Return the container to your do ctor or health home care and home health aides teacher for proper disposal. Talk to your negative cleaner regarding the use of this medicine in children. Special care may be needed. What side effects may I notice from receiving this medicine? Side effects that you should report to your doctor or health home care and home health aides teacher as soon as p ossible: allergic reactions [...] attention (report to your doctor or health home care and home health aides teacher if they continue or are bothersome): pain, [...] this medicine? Visit your doctor or health home care and home health aides teacher for regular checks on your progress. Your con dition will be monitored carefully while you are receiving this medicine. Notify your doctor or health home care and home health aides teacher and seek emergency treatment if you develop breathing problems; changes in vision; chest pain; severe, sudden headache; pain, swelling, warmth in the leg; trouble speaking; sudden numbness or weakness of the face, arm, or leg. T hese can be signs that your condition has gotten worse. If you are going to have surgery, tell your doctor or health home care and home health aides teacher that you are taking this medicine. Do [...] the skin to your doctor or health home care and home health aides teacher . NOTE:This sheet is a summary. It may not cover all possible information. If you have questi ons about this medicine, talk to your doctor, pharmacist, or health care provider. Copyright 2019 [employer] What to Know When Taking Warfarin Warfarin [...] stopping, starting, or changing any prescription or pffy-exs-oiwwcqq (OTC) medicines . This includes herbal medicines [...] products such as ginkgo, Q10, garlic, or [place]'s wort 5. Don't make major changes in [...] nose or a cut, for example. A uhfmndu-rdaf-wlazyu period or bleeding between periods Coughing or throwing up blood or something that looks like coffee grounds Nausea, bloating,or diarrhea Bleeding hemorrhoids Dark red or brown urine Red or black tarry stools Red or hujmv-mir-oxnz mane on the skin that get larger [...] your doctor right away or go to [facility]. Rash Itching Swelling Trouble swallowing or breathing [NOTE: This information topic may not include all directions, precautions, medical conditio ns, medicine/food interactions, and warnings for this medicine. Check with your doctor, nurs e, or pharmacist for any questions that you may have.] Date Last Reviewed: 04/07/201619990032-5066 [employer]. [address] [place] [address], [place] [address]. All [facility] ts reserved. This information is not [...] information carefully each time. Talk to your negative cleaner regarding the use of this medicine in children. Special care may be needed. What side effects may I notice from receiving this medicine? Side effects that you should report to your doctor or health home care and home health aides teacher as soon as p ossible: allergic reactions [...] attention (report to your doctor or health home care and home health aides teacher if they continue or are bothersome): diarrhea [...] this medicine? Visit your doctor or health home care and home health aides teacher for regular checks on your progress. You [...] less often. Notify your doctor or health home care and home health aides teacher and seek emergency treatment if you develop [...] taking or stop taking any medicines or pnqj-bhs-ojthkxe medicines except on th e advice of your doctor or health home care and home health aides teacher. You should discuss your diet with your doctor or health home care and home health aides teacher. Do not make alexia r changes in [...] risks and her options with her health home care and home health aides teacher. Avoid sports and activities that might cause injury while you are using this medicine. Nesha re falls or injuries can cause unseen bleeding. Be careful when using sharp tools or knives. Consider using an electric razor. Take special care brushing or flossing your teeth. Report any injuries, bruising, or red spots on the skin to your doctor or health home care and home health aides teacher . If you have an illness that [...] clot blood. Ask your doctor or health home care and home health aides teacher how long you ne ed to be careful. If you are going to have surgery or dental work, tell your doctor or [facility] home care and home health aides teacher that you have been taking this medicine. [...] of this encounter Progress Notes Silke Carl, [facility] - 02/12/2020 10:11 AM PDTFormatting [...] and modify therapy as indicated. Silke Carl [facility] 02/12/2020 10:06 AM Associated attestation - Destiny Valencia [facility] - 02/12/2020 3:00 PM PDTI agree with the resident's assessment and plan. Continue nomogram dosing of 5 mg daily. Destiny Valencia PharmD, [facility] 02/12/20 3:00 PM Destiny Valencia [facility] - 02/11/2020 2:04 PM PDT [...] modify therapy as indicated. Destiny Valencia PharmD, [facility] 02/11/20 2:03 PM Maryse Persaud RN - 02/11/2020 11:32 AM PDT . [facility] Service: Wound Care Consult Note Hospital Day: [...] PLAN Right buttocks Wound: Pt states his rubbish collector told him the wound was a "wisdom [...] any additional questions. Maryse Orosco RN, CMSRN, [facility] Inpatient Wound Ostomy Care [phone] 02/11/2020 11:32 AM Felisha Joseph PA - [...] s were obtained and 2x45 cm 5 Brazilian sheaths were placed. Using an angled pigtail [...] [address] | | | | | | [place] [address] | | | | | | [phone] | | | | | | | [...] pulmonary | Ordered: 02/12/2020 | | to [facility] | Referral | e | embolism, | [...] KEM | | | | performed at [facility];[address] | | LABORATORY | | | | [address];[place] | | | | | | [address] | | | | + + + + + + + + | Specimen | + + | Blood | + + + + + + + | Performing | Address | City/State/Zipcode | Phone Number | | Organization | | | | + + + + + | [facility] | [address] | [place] [address] | [phone] | + + + + + Protime [...] | | | | | performed at [facility];[address] | | | | | | [address];[place], [place] | | | | | | [address] | | | | + + + + + + + + | Specimen | + + | Blood | + + + + + + + | Performing | Address | City/State/Zipcode | Phone Number | | Organization | | | | + + + + + | [facility] | [address] | [place] [address] | [phone] | + + + + + Phosphorus (02/12/2020 4:02 AM PDT) + + + + + + | Component | Value | Ref Range | Performed | Pathologist | | | | | At | Signature | + + + + + + | Phosphorus | 2.6Comment: Testing | 2.3 - 4.8 mg/dL | [facility] | | | | performed at [facility];[address] | | LABORATORY | | | | [address];[place] | | | | | | [address] | | | | + + + + + + + + | Specimen | + + | Blood | + + + + + + + | Performing | Address | City/State/Zipcode | Phone Number | | Organization | | | | + + + + + | [facility] | [address] | [place] [address] | [phone] | + + + + + Magnesium (02/12/2020 4:02 AM PDT) + + + + + + | Component | Value | Ref Range | Performed | Pathologist | | | | | At | Signature | + + + + + + | Magnesium | 2.0Comment: Testing | 1.7 - 2.4 mg/dL | [facility] | | | | performed at [facility];[address] | | LABORATORY | | | | [address];[place], [place] | | | | | | [address] | | | | + + + + + + + + | Specimen | + + | Blood | + + + + + + + | Performing | Address | City/State/Zipcode | Phone Number | | Organization | | | | + + + + + | [facility] | [address] | [place] [address] | [phone] | + + + + + CBC [...] | | | Absolute | performed at [facility];[address] | [address] | LABORATORY | | | | [address];[place], [place] | | | | | | [address] | | | | + + + + + + + + | Specimen | + + | Blood | + + + + + + + | Performing | Address | City/State/Zipcode | Phone Number | | Organization | | | | + + + + + | [facility] | [address] | [place] [address] | [phone] | + + + + + Basic [...] | | | | | performed at [facility] | | | | | | [facility];[place], [place] | | | | | | [address] | | | | + + + + + + + + | Specimen | + + | Blood | + + + + + + + | Performing | Address | City/State/Zipcode | Phone Number | | Organization | | | | + + + + + | [facility] | [address] | [place] [address] | [phone] | + + + + + PTT (02/12/2020 12:58 AM PDT) + + + + + + | Component | Value | Ref Range | Performed | Pathologist | | | | | At | Signature | + + + + + + | PTT | 59 (H)Comment: Testing | 23 - 32 seconds | [facility] | | | | performed at [facility];[address] | | LABORATORY | | | | [address];[place] | | | | | | [address] | | | | + + + + + + + + | Specimen | + + | Blood | + + + + + + + | Performing | Address | City/State/Zipcode | Phone Number | | Organization | | | | + + + + + | [facility] | [address] | [place] [address] | [phone] | + + + + + Troponin I (02/11/2020 7:50 PM PDT) + + + + + + | Component | Value | Ref Range | Performed | Pathologist | | | | | At | Signature | + + + + + + | Troponin I | 0.256 (H)Comment: 0.04 | 0.00 - 0.04 | [facility] | | | | ng/mL or [...] at | | | | | | [facility];[address] | | | | [address];[place] [address] | | | | + + + + + + + + | Specimen | + + | Blood | + + + + + + + | Performing | Address | City/State/Zipcode | Phone Number | | Organization | | | | + + + + + | [facility] | [address] | [place] [address] | [phone] | + + + + + PTT (02/11/2020 5:05 PM PDT) + + + + + + | Component | Value | Ref Range | Performed | Pathologist | | | | | At | Signature | + + + + + + | PTT | 77 ()Comment: CALLED | 23 - 32 seconds | [facility] | | | | NURSING UNITREAD BACK | | LABORATORY | | | | RESULTS VERIFIEDMAJO Roth | | | | | | RN 9RP @ 4727 DLSTesting | | | | | | performed at [facility] | | | | | | [address];[place], [place] | | | | | | [address] | | | | + + + + + + + + | Specimen | + + | Blood | + + + + + + + | Performing | Address | City/State/Zipcode | Phone Number | | Organization | | | | + + + + + | [facility] | [address] | [place] [address] | [phone] | + + + + + Fibrinogen (02/11/2020 12:35 PM PDT) + + + + + + | Component | Value | Ref Range | Performed | Pathologist | | | | | At | Signature | + + + + + + | Fibrinogen | 600 (H)Comment: Testing | 200 - 450 mg/dL | [facility] | | | | performed at [facility];[address] | | LABORATORY | | | | [address];[place] | | | | | | [address] | | | | + + + + + + + + | Specimen | + + | Blood | + + + + + + + | Performing | Address | City/State/Zipcode | Phone Number | | Organization | | | | + + + + + | [facility] | [address] | [place] [address] | [phone] | + + + + + Troponin I (02/11/2020 12:32 PM PDT) + + + + + + | Component | Value | Ref Range | Performed | Pathologist | | | | | At | Signature | + + + + + + | Troponin I | 0.42 (H)Comment: 0.04 | 0.00 - 0.04 | [facility] | | | | ng/mL or [...] at | | | | | | [facility];[address] [place] [address] | | | | | | Blvd;[place] [address] | | | | + + + + + + + + | Specimen | + + | Blood | + + + + + + + | Performing | Address | City/State/Zipcode | Phone Number | | Organization | | | | + + + + + | [facility] | [address] | [place] [address] | [phone] | + + + + + PTT (02/11/2020 8:02 AM PDT) + + + + + + | Component | Value | Ref Range | Performed | Pathologist | | | | | At | Signature | + + + + + + | PTT | 37 (H)Comment: Testing | 23 - 32 seconds | [facility] | | | | performed at [facility];[address] | | LABORATORY | | | | [address];[place] | | | | | | [address] | | | | + + + + + + + + | Specimen | + + | Blood | + + + + + + + | Performing | Address | City/State/Zipcode | Phone Number | | Organization | | | | + + + + + | [facility] | [address] | [place] [address] | [phone] | + + + + + Protime [...] | | | | | performed at [facility] | | | | | | [address] [facility];[place], [place] | | | | | | [address] | | | | + + + + + + + + | Specimen | + + | Blood | + + + + + + + | Performing | Address | City/State/Zipcode | Phone Number | | Organization | | | | + + + + + | [facility] | [address] | [place] [address] | [phone] | + + + + + CBC [...] | | | Absolute | performed at [facility], [address] | [address] | LABORATORY | | | | [address], | | | | | | [place] [address] | | | | + + + + + + + + | Specimen | + + | Blood | + + + + + + + | Performing | Address | City/State/Zipcode | Phone Number | | Organization | | | | + + + + + | [facility] | [address] | [place] [address] | [phone] | + + + + + Fibrinogen (02/11/2020 8:02 AM PDT) + + + + + + | Component | Value | Ref Range | Performed | Pathologist | | | | | At | Signature | + + + + + + | Fibrinogen | 531 (H)Comment: Testing | 200 - 450 mg/dL | [facility] | | | | performed at [facility];[address] | | LABORATORY | | | | [address];[place] | | | | | | [address] | | | | + + + + + + + + | Specimen | + + | Blood | + + + + + + + | Performing | Address | City/State/Zipcode | Phone Number | | Organization | | | | + + + + + | [facility] | [address] | [place] [address] | [phone] | + + + + + Phosphorus (02/11/2020 4:02 AM PDT) + + + + + + | Component | Value | Ref Range | Performed | Pathologist | | | | | At | Signature | + + + + + + | Phosphorus | 2.9Comment: Testing | 2.3 - 4.8 mg/dL | [facility] | | | | performed at [facility];[address] | | LABORATORY | | | | [address];[place] | | | | | | [address] | | | | + + + + + + + + | Specimen | + + | Blood | + + + + + + + | Performing | Address | City/State/Zipcode | Phone Number | | Organization | | | | + + + + + | [facility] | [address] | [place] [address] | [phone] | + + + + + Magnesium (02/11/2020 4:02 AM PDT) + + + + + + | Component | Value | Ref Range | Performed | Pathologist | | | | | At | Signature | + + + + + + | Magnesium | 1.8Comment: Testing | 1.7 - 2.4 mg/dL | [facility] | | | | performed at [facility];[address] | | LABORATORY | | | | [address];[place] | | | | | | [address] | | | | + + + + + + + + | Specimen | + + | Blood | + + + + + + + | Performing | Address | City/State/Zipcode | Phone Number | | Organization | | | | + + + + + | [facility] | [address] | [place] [address] | [phone] | + + + + + Basic [...] | >60Comment: GFR <60: | >60 | [facility] | | | GFR | CHRONIC [...] | | | | | | MDRD IDMT traceable | | | | | | equation.Testing | | | | | | performed at [facility];[address] | | | | | | [facility];[place], [place] | | | | | | [address] | | | | + + + + + + + + | Specimen | + + | Blood | + + + + + + + | Performing | Address | City/State/Zipcode | Phone Number | | Organization | | | | + + + + + | [facility] | [address] | [place] [address] | [phone] | + + + + + Troponin I (02/11/2020 4:02 AM PDT) + + + + + + | Component | Value | Ref Range | Performed | Pathologist | | | | | At | Signature | + + + + + + | Troponin I | 0.604 (H)Comment: 0.04 | 0.00 - 0.04 | [facility] | | | | ng/mL or [...] at | | | | | | [facility];[address] [facility] | | | | | | [facility];[place] [address] | | | | + + + + + + + + | Specimen | + + | Blood | + + + + + + + | Performing | Address | City/State/Zipcode | Phone Number | | Organization | | | | + + + + + | [facility] | [address] | [place] [address] | [phone] | + + + + + MRSA [...] [facility] | | | | performed at [facility];[address] | | LABORATORY | | | | [address];[place] | | | | | | [address] | | | | + + + + + + + + | Specimen | + + | Tissue - Both | | anterior nares (body | | structure) | + + + + + + + | Performing | Address | City/State/Zipcode | Phone Number | | Organization | | | | + + + + + | [facility] | [address] | [place] [address] | [phone] | + + + + + Fibrinogen (02/11/2020 1:30 AM PDT) + + + + + + | Component | Value | Ref Range | Performed | Pathologist | | | | | At | Signature | + + + + + + | Fibrinogen | 559 (H)Comment: Testing | 200 - 450 mg/dL | [facility] | | | | performed at [facility];[address] | | LABORATORY | | | | [address];[place] | | | | | | [address] | | | | + + + + + + + + | Specimen | + + | Blood | + + + + + + + | Performing | Address | City/State/Zipcode | Phone Number | | Organization | | | | + + + + + | [facility] | [address] | [place] [address] | [phone] | + + + + + POC Glucose (02/11/2020 1:03 AM PDT) + + + + + + | Component | Value | Ref Range | Performed | Pathologist | | | | | At | Signature | + + + + + + | Glucose, | 99Comment: Testing | 65 - 99 mg/dL | [facility] | | | POC | performed at [facility];[address] | | LABORATORY | | | | [address];[place] | | | | | | [address] | | | | + + + + + + + + | Specimen | + + | | + + + + + + + | Performing | Address | City/State/Zipcode | Phone Number | | Organization | | | | + + + + + | [facility] | [address] | [place] [address] | [phone] | + + + + + IR [...] | | wereobtained and 2x45 cm 5 Brazilian sheaths were placed. Using an | | [...] | | obtained and 2x45 cm 5 Brazilian sheaths were placed. Using an angled | [...] | | LABORATORY | | | | 8434 BY MWREAD BACK | | | | | | RESULTS VERIFIEDTesting | | | | | | performed at [facility];[address] | | | | | | [address];[place], [place] | | | | | | [address] | | | | + + + + + + + + | Specimen | + + | Blood | + + + + + + + | Performing | Address | City/State/Zipcode | Phone Number | | Organization | | | | + + + + + | [facility] | [address] | [place] [address] | [phone] | + + + + + Jennifer [...] | | | | | performed at [facility];[address] | | | | | | [address];[place], [place] | | | | | | [address] | | | | + + + + + + + + | Specimen | + + | Blood | + + + + + + + | Performing | Address | City/State/Zipcode | Phone Number | | Organization | | | | + + + + + | [facility] | [address] | [place] [address] | [phone] | + + + + + CBC [...] LABORATORY | | | | performed at [facility];[address] | | | | | | [address];[place] | | | | | | [address] | | | | + + + + + + + + | Specimen | + + | Blood | + + + + + + + | Performing | Address | City/State/Zipcode | Phone Number | | Organization | | | | + + + + + | [facility] | [address] | [place] [address] | [phone] | + + + + + Troponin I (02/10/2020 10:20 PM PDT) + + + + + + | Component | Value | Ref Range | Performed | Pathologist | | | | | At | Signature | + + + + + + | Troponin I | 0.563 (H)Comment: 0.04 | 0.00 - 0.04 | [facility] | | | | ng/mL or [...] at | | | | | | [facility];[address] [facility] | | | | | | Blvd;[place] [address] | | | | + + + + + + + + | Specimen | + + | Blood | + + + + + + + | Performing | Address | City/State/Zipcode | Phone Number | | Organization | | | | + + + + + | [facility] | [address] | [place] [address] | [phone] | + + + + + ECG [...] (500), | | | | | | staff editor Veronica Orellana | | | | [...]
--- OUTSIDE RECORDS SUMMARY | ~2020-04-14 | XMS | Encounter Summary ---
Demographics + + + | Address | [address] | | | [place] [address] | + + + | Home Phone | | + + + | Preferred Language | Unknown | + + + | Marital Status | | + + + | Tenriism Affiliation | Unknown | + + + | Race | Unknown | + + + | Ethnic Group | Unknown | + + + Author + + + | Author | [facility] | | | and [place] | + + + | Organization | [facility] | | [...] Team Providers + +------+ + | Care Load Dropper Name | Role | Phone | + +------+ + | Antonio Nolasco MD | PCP | | + +------+ + Encounter Details +--------+--------+ + + + | Date | Type | Department | Care Team | Description | +--------+--------+ + + + | 02/09/ | Intake | [facility] | | N/A | | 2019 | | [place] [address] | | | | | | [address] | | | | | | [place], [place] | | | | | | [address] | | | | | | [phone] | | | +--------+--------+ + + + [...] [place] | | | | | | [place] [address] | | | | | | [phone] | | | | | | | | +--------+---------+ + + + documented as of this encounter Visit Diagnoses Not on filedocumented in this encounter"
--- OUTSIDE RECORDS SUMMARY | ~2020-04-14 | XMS | Encounter Summary ---
Demographics + + + | Address | [address] | | | [place] [address] | + + + | Home Phone [...] Team Providers + +------+ + | Care Senior Javascript Engineer Name | Role | Phone | + +------+ + | Antonio Nolasco MD | PCP | | + +------+ + Encounter Details +--------+ + + + + | Date | Type | Department | Care Team | Description | +--------+ + + + + | 02/13/ | Telephone | [facility] | Jigna Metcalf RN | | | 2020 | | CENTER | | | | | | [facility] | | | | | | [facility] | | | | | | [address] | | | | | | [place] | | | | | | [address] | | | | | | [phone] | | | +--------+ + + + [...] [place] | | | | | | [place] [address] | | | | | | [phone] | | | | | | | | +--------+---------+ + + + documented as of this encounter Visit Diagnoses Not on filedocumented in this encounter"
--- OUTSIDE RECORDS SUMMARY | 2020-04-14 19:22 | XMS ---
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 - 2 Visits in 30 Days CARE PROVIDERS There are no care providers on record at this time. Ruthie has no Care Guidelines for this patient. Chris VISIT COUNT (12 MO.) 3 [facility] [facility]. TOTAL 3 NOTE: Visits indicate total known visits. ED/C VISIT TRACKING (12 MO.) 04/14/2020 19:20 [facility] [place] TYPE: Emergency COMPLAINT: - CHEST PAIN 04/01/2020 14:14 [facility] [place] TYPE: Emergency COMPLAINT: - RT HAND SWELLING/ NON INJURY 02/10/2020 15:13 [facility] [place] TYPE: Emergency COMPLAINT: - SOB DIAGNOSES: - Other usp (current) drug therapy - Essential (primary) hypertension - Shortness of breath - Other pulmonary embolism without acute cor pulmonale INPATIENT VISIT TRACKING (12 MO.) 04/01/2020 16:35 [facility] [place] TYPE: Medical Surgical COMPLAINT: - SEPSIS, CELLULITIS OF THE RIGHT UE DIAGNOSES: - Abrasion of right forearm, initial encounter - Personal history of pulmonary embolism - Do not resuscitate - Cellulitis of right upper limb - Essential (primary) hypertension - Sepsis, unspecified organism - 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 DIAGNOSES: - Other pulmonary embolism without acute cor pulmonale - Syncope and collapse [email or web address]
[2020-04-14] MEDS ORDERED: ESCITALOPRAM OX20 MG PO (19:29)
--- NOTE | 2020-04-15 06:58 | EKG ---
[facility] [address] [place] [address] Signed Sinus bradycardia with 1st degree AV block Otherwise normal ECG When compared with ECG of 01-APR-2020 16:43, Vent. rate has decreased BY 29 BPM Confirmed by KIZZY SWAIN MD ([id number]) on 04/15/2020 6:58:01 AM Electronically Signed By: KIZZY SWAIN MD 04/15/20 0658 PATIENT NAME: OLIVIA MANTILLA Electrocardiogram DATE OF : 34 PHYSICIAN: KIZZY SWAIN MD REPORT #: [id number] REPORT IS CONFIDENTIAL AND NOT TO BE RELEASED WITHOUT AUTHORIZATION
== END 2020-04-14 21:24 | disposition home or self-care (01) ==
LOC: ED 19:19
DX: R53.1 Weakness (principal); I10 Essential (primary) hypertension; Z79.899 Other long term (current) drug therapy
CPT/HCPCS: 71045; 80053; 81001; 83735; 84484; 85025; 85379; 85610; 85730; 93005; 93010; 99285-25

== ENCOUNTER 2021-04-07 11:42 | Emergency (ER) | payer MEDICARE ==
[~2021-04-07] VITALS: Ht 172.7 cm; Wt 90.3 kg
[~2021-04-07 11:42] MED LIST changes: +ESCITALOPRAM OX20 MG PO
--- OUTSIDE RECORDS SUMMARY | 2021-04-07 11:48 | XMS ---
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 Care History Medical/Surgical 04/16/2020 [facility] - Patient is currently established with [facility]. If patient is seen in the ED during business hours. Please contact [facility] at [facility]. Care Recommendation: If this patient has had 5 or more Emergency Department visits in the last 12 months.\T\nbsp; Patient will require education on the scope and purpose of the ED as an acute care provider not a Primary Care Provider and should not be utilized for chronic conditions.\T\nbsp; These are guidelines and the provider should exercise clinical judgment when providing care. 04/15/2020 [facility] Spoke with patient - he did not contact Dr. Valdez prior to going to ED.\T\ nbsp; Patient stated he has appointment with Dr. Lima tomorrow, 04/16/2020 to evaluate carotid artery and other vessels.\T\nbsp; I advised to update Dr. Valdez or make follow up with him. E.D. VISIT COUNT (12 MO.) 2 [facility] TOTAL 2 NOTE: Visits indicate total known visits. ED/UCC VISIT TRACKING (12 MO.) 04/07/2021 11:43 [facility] TYPE: Emergency COMPLAINT: - POSSIBLE HEART ATTACK 04/14/2020 19:20 [facility] TYPE: Emergency COMPLAINT: - CHEST PAIN DIAGNOSES: - Weakness - Other nursing home (current) drug therapy - Essential (primary) hypertension INPATIENT VISIT TRACKING (12 MO.) No inpatient visits to display in this time frame [email or web address]
[2021-04-07] MEDS ORDERED: ATORVASTATIN CA20 MG PO (11:53)
[2021-04-07] MEDS ORDERED: PRESERVISION A1 EAC1 PO (11:54)
[2021-04-07] MEDS ORDERED: VITAMIN D350 MCG PO (11:54)
--- NOTE | 2021-04-07 15:57 | EKG ---
[facility] [address] [place] [address] Signed Sinus rhythm with 1st degree AV block Otherwise normal ECG When compared with ECG of 14-APR-2020 19:28, Vent. rate has increased BY 40 BPM Confirmed by KIZZY SWAIN MD ([id number]) on 04/07/2021 3:57:06 PM Electronically Signed By: KIZZY SWAIN MD 04/07/21 1557 PATIENT NAME: OLIVIA MANTILLA Electrocardiogram DATE OF : 34 PHYSICIAN: KIZZY SWAIN MD REPORT #: [id number] REPORT IS CONFIDENTIAL AND NOT TO BE RELEASED WITHOUT AUTHORIZATION
== END 2021-04-07 14:48 | disposition home or self-care (01) ==
LOC: ED 11:42
DX: R53.1 Weakness (principal); R53.83 Other fatigue; I10 Essential (primary) hypertension; Z79.899 Other long term (current) drug therapy
CPT/HCPCS: 70450; 71045; 80053; 81001; 83735; 84484; 85025; 93005; 93010; 99285-25